=== PATIENT | female | born 1945 | race Caucasian/White ===

== ENCOUNTER 2017-08-17 08:36 | Outpatient (CLI) | payer MEDICARE, OTHER ==
--- NOTE | 2017-08-18 16:53 | Mammography Report ---
EXAM: Diagnostic digital bilateral mammogram. CLINICAL INDICATION: Localized pain inferior left breast, history of benign left breast biopsy. TECHNIQUE: Bilateral CC and MLO views, left true lateral views. Markers were placed at the site of maximal tenderness identified by the patient in the 6 o' clock position of the left breast. COMPARISON: 05/13/2014, 02/03/2013, 01/22/2012, 12/25/2010, 11/15/2009. FINDINGS: The breasts again demonstrate scattered fibroglandular densities bilaterally. Coarse and punctate, typically benign calcifications are present. Post-biopsy changes in the left breast are stable. No suspicious masses. Clustered microcalcifications, or regions of architectural distortion are identified. Specifically, no mammographic abnormality is appreciated in the 6 o' clock position of the left breast, at the site of tenderness identified by the patient. IMPRESSION: Benign findings. RECOMMENDATIONS: Routine annual screening unless otherwise clinically indicated. BIRADS category 2, benign findings. STANDARD QUALIFYING STATEMENTS 1. This examination was reviewd with the aid of computer-Aided Detection (CAD). 2. A negative or benign imaging report should not delay biopsy if clinically suspicious findings are present. Consider surgical consultation if warranted. More than 5% of cancers are not identified by imaging. 3. Dense breasts may obscure an underlying neoplasm. TD: 08/17/2017 13:46 EMIGDIO
== END 2017-08-17 08:37 | disposition home or self-care (01) ==
LOC: DI 08:36
PROVIDERS: ATTEND Internal Medicine
DX: N64.4 Mastodynia (principal)
CPT/HCPCS: 77066

== ENCOUNTER 2018-03-31 08:26 | Outpatient (CLI) | payer MEDICARE, OTHER | END 2018-03-31 08:27 | disposition home or self-care (01) | LOC: RT 08:26 | PROVIDERS: ATTEND Family Medicine | DX: I48.91 Unspecified atrial fibrillation (principal) | CPT/HCPCS: 93005 ==

== ENCOUNTER 2018-06-10 13:12 | Outpatient (CLI) | payer MEDICARE, OTHER | END 2018-06-10 13:13 | disposition critical access hospital (66) | LOC: EMS 13:12 | PROVIDERS: ATTEND Surgery | DX: R11.2 Nausea with vomiting, unspecified (principal); R46.4 Slowness and poor responsiveness; R73.09 Other abnormal glucose | CPT/HCPCS: A0425; A0427 ==

== ENCOUNTER 2018-06-10 13:22 | Emergency (ER) | payer MEDICARE, OTHER ==
[2018-06-10] MEDS ORDERED: SODIUM CHLORIDE 0.9% 1,000 ML IV ONE ×2 (13:55)
[2018-06-10] MEDS ORDERED: ONDANSETRON 4 MG/2 ML VIAL IVP STA (13:56)
[2018-06-10 13:57] LABS: BASOPHILS % (AUTO) 0.5 %; EOSINOPHILS # (AUTO) 0.1 10^3/uL (0.0-0.7); EOSINOPHILS % (AUTO) 2.2 %; HGB - HEMOGLOBIN 13.8 g/dL (12.0-16.0); LYMPHOCYTES # (AUTO) 1.7 10^3/uL (1.5-3.5); LYMPHOCYTES % (AUTO) 26.5 %; MEAN CORPUSCULAR HEMOGLOBIN 30.7 pg (27.0-31.0); MEAN CORPUSCULAR HGB CONC 33.7 g/dL (32.0-36.0); MEAN CORPUSCULAR VOLUME 90.9 fL (81.0-99.0); MEAN PLATELET VOLUME 8.8 fL (7.9-10.8); MONOCYTES # (AUTO) 0.4 10^3/uL (0.0-1.0); MONOCYTES % (AUTO) 5.4 %; NEUTROPHILS # (AUTO) 4.3 10^3/uL (1.5-6.6); NEUTROPHILS % (AUTO) 65.4 %; PLT - PLATELET COUNT 187 10^3/uL (130-450); RED BLOOD COUNT 4.49 10^6/uL (4.20-5.40); RED CELL DISTRIBUTION WIDTH 13.7 % (12.0-15.0); WHITE BLOOD COUNT 6.6 x10^3/uL (4.8-10.8)
[2018-06-10 14:08] LABS: ALBUMIN 4.2 g/dL (3.2-5.5); ALBUMIN/GLOBULIN RATIO 1.3 (1.0-2.2); BILIRUBIN,TOTAL 1.6 mg/dL (0.2-1.0); CALCIUM 9.8 mg/dL (8.5-10.3); CREATININE 1.3 mg/dL (0.4-1.0); TOTAL PROTEIN 7.5 g/dL (6.7-8.2)
--- NOTE | 2018-06-10 14:14 | ED Physician Documentation ---
History of Present Illness - Stated complaint Stated Complaint: VOMITING - Chief complaint Chief Complaint: General - History obtained from History obtained from: Patient, EMS - History of Present Illness Timing: How many weeks ago (1) Pain level max: 3 Pain level now: 3 Improved by: Nothing Worsened by: Eating or drinking - Additonal information Additional information: Patient is a 72-year-old female with diabetes who states she has had vomiting for the past week. Unable to keep her medications down recently. States is starting to feel confused and weak. Denies any abdominal pain, but does state that her upper back hurts from vomiting. Has not taken anything for the vomiting. No fevers. No recent antibiotics or travel. No recent surgery. She states she is status post cholecystectomy several years ago. Review of Systems Ten Systems: 10 systems reviewed and negative Constitutional: denies: Fever, Chills Ears: denies: Ear pain Nose: denies: Rhinorrhea / runny nose, Congestion Throat: denies: Sore throat Cardiac: denies: Chest pain / pressure Respiratory: denies: Cough, Wheezing GI: reports: Nausea, Vomiting. denies: Diarrhea, Hematemesis, Bloody / black stool : denies: Dysuria Skin: denies: Rash Musculoskeletal: denies: Neck pain, Back pain Neurologic: denies: Headache PD PAST MEDICAL HISTORY - Past Medical History Cardiovascular: Hypertension, High cholesterol Respiratory: Asthma Endocrine/Autoimmune: Type 2 diabetes Psych: Depression - Past Surgical History Past Surgical History: Yes General: Cholecystectomy, Appendectomy Ortho: Knee replacement HEENT: Tonsil/Adenoidectomy - Present Medications Home Medications: Ambulatory Orders Medication Instructions Recorded Confirmed Acyclovir 400 mg PO PRN 07/22/14 12/09/14 Aspirin [Aspir 81] 81 mg PO DAILY 07/22/14 12/09/14 Duloxetine HCl [Cymbalta] 60 mg PO DAILY 07/22/14 12/09/14 Gabapentin 600 mg PO TID 07/22/14 12/09/14 Levalbuterol Tartrate [Xopenex Hfa] 07/22/14 12/09/14 Losartan Potassium 50 mg PO DAILY 07/22/14 12/09/14 Metformin HCl [Fortamet] 1,000 mg PO BID 07/22/14 12/09/14 Omeprazole 20 mg PO BID 07/22/14 12/09/14 Insulin NPH Human Isophane 60 units SQ DAILY 12/09/14 12/09/14 [Novolin N] Insulin Regular, Human [Novolin R] 20 units SQ TID 12/09/14 12/09/14 Oxycodone HCl/Acetaminophen 1 - 2 each PO Q6H PRN #15 tablet 12/09/14 [Percocet 5-325 mg Tablet] Allerest Qam 11/08/15 Amitriptyline [Elavil] 50 mg QPM 11/08/15 11/08/15 Hydroxyzine HCl 50 mg QPM 11/08/15 11/08/15 Magnesium Oxide [Mag Ox] 400 mg PO BID #10 tablet 11/08/15 Cefdinir 300 mg PO BID #10 capsule 06/10/18 Ondansetron Odt [Zofran] 4 mg TL Q6H PRN #10 tablet 06/10/18 - Allergies Allergies/Adverse Reactions: Allergies Allergy/AdvReac Type Severity Reaction Status Date / Time Penicillins Allergy Unknown Verified 06/10/18 13:29 - Social History Does the pt smoke?: No Smoking Status: Never smoker Does the pt drink ETOH?: Yes Does the pt have substance abuse?: No - Immunizations Immunizations are current?: Yes - POLST Patient has POLST: No PD ED PE NORMAL - Vitals Vital signs reviewed: Yes - General General: Alert and oriented X 3, No acute distress - HEENT HEENT: Moist mucous membranes - Neck Neck: Supple, no meningeal sign - Cardiac Cardiac: RRR, Strong equal pulses - Respiratory Respiratory: No respiratory distress, Clear bilaterally - Abdomen Abdomen: Soft, Non distended, Other (Mild tenderness to palpation epigastric and right upper quadrant without peritoneal signs) - Back Back: No CVA TTP, No spinal TTP - Derm Derm: Warm and dry, No rash - Extremities Extremities: No calf tenderness / cord - Neuro Neuro: Alert and oriented X 3 - Psych Psych: Normal mood, Normal affect Results - Vitals Vitals: Vital Signs - 24 hr 06/10/18 13:24 Temperature 36.5 C Heart Rate 76 Respiratory 16 Rate Blood Pressure 126/68 O2 Saturation 99 Oxygen O2 Source Room air - Labs Labs: Laboratory Tests 06/10/18 06/10/18 13:52 13:52 WBC 6.6 RBC 4.49 Hgb 13.8 Hct 40.8 MCV 90.9 MCH 30.7 MCHC 33.7 RDW 13.7 Plt Count 187 MPV 8.8 Neut # (Auto) 4.3 Lymph # (Auto) 1.7 [place] # (Auto) 0.4 Eos # (Auto) 0.1 Baso # (Auto) 0.0 Absolute Nucleated RBC 0.00 Nucleated RBC % 0.0 Sodium 136 Potassium 3.7 Chloride 98 L Carbon Dioxide 23 Anion Gap 15.0 H BUN 28 H Creatinine 1.3 H Estimated GFR (MDRD) 40 L Glucose 389 H Calcium 9.8 Total Bilirubin 1.6 H AST 36 ALT 30 Alkaline Phosphatase 58 Total Protein 7.5 Albumin 4.2 Globulin 3.3 Albumin/Globulin Ratio 1.3 Lipase 28 PD MEDICAL DECISION MAKING - ED course Complexity details: reviewed results, re-evaluated patient, considered differential, d/w patient ED course: Patient is a 72-year-old female who presents to the emergency department vomiting for the past week. Appears to have a UTI and given Rocephin for this. Will place on antibiotics for home. She was given Zofran and IV fluids. Also given insulin. Glucose decreased. She feels much better and is tolerating p.o. without difficulty. Abdomen is soft, nontender nondistended. No evidence of pyelonephritis. Patient counseled regarding signs and symptoms for which I believe and urgent re-evaluation would be necessary. Patient with good understanding of and agreement to plan and is comfortable going home at this time This document was made in part using voice recognition software. While efforts are made to proofread this document, sound alike and grammatical errors may occur. - Sepsis Event Vital Signs: Vital Signs - 24 hr 06/10/18 13:24 Temperature 36.5 C Heart Rate 76 Respiratory 16 Rate Blood Pressure 126/68 O2 Saturation 99 Oxygen O2 Source Room air Departure - Departure Disposition: 01 Home, Self Care Clinical Impression: Hyperglycemia Vomiting Qualifiers: Vomiting type: unspecified Vomiting Intractability: non-intractable Nausea presence: with nausea Qualified Code(s): R11.2 - Nausea with vomiting, unspec ified UTI (urinary tract infection) Qualifiers: Urinary tract infection type: acute cystitis Hematuria presence: without he maturia Qualified Code(s): N30.00 - Acute cystitis without hematuria Condition: Good Instructions: ED UTI Cystitis Female, ED Nausea Vomiting Follow-Up: Jose Larson MD [Primary Care Provider] - Within 3 Days Prescriptions: Cefdinir 300 mg PO BID #10 capsule Ondansetron Odt [Zofran] 4 mg TL Q6H PRN #10 tablet PRN Reason: Nausea / Vomiting Comments: Return if you worsen. You can use Zofran as needed for nausea and vomiting. Drink plenty of fluids. Take all antibiotics until gone. Discharge Date/Time: 06/10/18 16:47
[2018-06-10 14:28] LABS: BILIRUBIN,URINE NEGATIVE (NEGATIVE); GLUCOSE, URINE (UA) 500 mg/dL (NEGATIVE); KETONES,URINE (UA) >=80 mg/dL (NEGATIVE); LEUKOCYTE ESTERASE, URINE NEGATIVE (NEGATIVE); NITRITE,URINE NEGATIVE (NEGATIVE); OCCULT BLOOD,URINE SMALL (NEGATIVE); PROTEIN,URINE >=300 mg/dL (NEGATIVE); UROBILINOGEN,URINE 0.2 (NORMAL) E.U./dL (NORMAL)
[2018-06-10 14:33] LABS: CLARITY,URINE CLEAR (CLEAR)
[2018-06-10] MEDS ORDERED: INSULIN REGULAR HUMAN 100 UNIT/1 ML 10 ML MDV SUBQ STA (14:45)
[2018-06-10 14:52] LABS: BACTERIA,URINE Rare /HPF (None Seen); RBC,URINE 0-5 /HPF (0-5); SQUAMOUS EPITHELIAL CELL,UR FEW Squamous (<= Few)
[2018-06-10 14:53] LABS: AMORPHOUS SEDIMENT,UR Rare /LPF; CASTS, URINE 0-2 Hyaline Casts /LPF
[2018-06-10 14:55] LABS: VBG BASE EXCESS 0.7 mmol/L (-2 - +2); VBG PCO2 44.6 mmHg (41-51); VBG PO2 34.3 mmHg (25-47); VBG TOTAL CO2 27.5 mmol/L (24-29)
[2018-06-10 15:11] LABS: VBG PH 7.385 (7.31-7.41)
[2018-06-10] MEDS ORDERED: cefTRIAXone 1 GM VIAL IVP STA (16:04)
[2018-06-10 16:41] VITALS: BP 115/68
== END 2018-06-10 16:47 | disposition home or self-care (01) ==
LOC: EDUNIT# → ED 13:22
DX: E11.65 Type 2 diabetes mellitus with hyperglycemia (principal); R11.2 Nausea with vomiting, unspecified; N30.00 Acute cystitis without hematuria; I10 Essential (primary) hypertension; E78.00 Pure hypercholesterolemia, unspecified; Z96.659 Presence of unspecified artificial knee joint; Z79.4 Long term (current) use of insulin; Z79.82 Long term (current) use of aspirin
CPT/HCPCS: 36415; 80053; 81001; 82009; 82803; 83690; 85025; 96361; 96374; 96375; 99284; J1815; 81003; 87086

== ENCOUNTER 2018-07-05 12:34 | Outpatient (CLI) | payer MEDICARE, OTHER ==
[2018-07-05] MEDS ORDERED: REGADENOSON 0.4 MG/5 ML SYRINGE IVP ONE ×2 (13:00→15:37)
--- NOTE | 2018-07-05 18:02 | CARDIAC PROCEDURE NOTE ---
DATE OF SERVICE: 07/05/2018 Physician: Marie Rivas MD, [facility]GED WITH [facility] INDICATION: Exertional dyspnea. CARDIAC RISK FACTORS: Insulin-dependent diabetes, postmenopausal status, hypertension, unknown family history of heart disease. SUMMARY: After signing informed consent, the patient underwent a pharmaceutical stress test using Lexiscan and myocardial perfusion imaging with nuclear agent. Resting heart rate 69. Peak heart rate 75. Resting blood pressure 120/68, peak blood pressure 150/80. Lexiscan was infused according to protocol. The patient experienced nausea and flushing, brief chest pressure that she rated 2-3/10, which resolved in 2 minutes. The patient had no shortness of breath. RESTING EKG: Normal sinus rhythm and within normal limits. EKG AT PEAK: Within normal limits. No ischemic EKG changes. SUMMARY: 1. No ischemic EKG changes during this pharmaceutical stress test. 2. Nuclear images reported separately. cc: Jose Larson MD TD: 07/05/2018 16:48 [facility]
--- NOTE | 2018-07-06 10:09 | Nuclear Medicine Report ---
Reason: EXERTIONAL DYSPNEA Procedure Date: 07/05/2018 Accession Number: [id number] / [id number] Procedure: NM - Myocardial Perfusion STR/RST CPT Code: FULL RESULT: EXAM: SINGLE-ISOTOPE PHARMACOLOGICAL STRESS TEST WITH REGADENOSON. SINGLE-ISOTOPE AND ONE-DAY REST/STRESS MYOCARDIAL PERFUSION SCANS WITH TOMOGRAPHIC IMAGING, QUANTITATIVE ANALYSIS, WALL MOTION ANALYSIS AND CALCULATION OF EJECTION FRACTION. EXAM DATE: 07/05/2018 04:41 PM. CLINICAL HISTORY: EXERTIONAL DYSPNEA. COMPARISON: None available. TECHNIQUE: After the intravenous administration of 9.9 mCi of Tc-99m sestamibi, a rest myocardial perfusion scan was done with tomography. Motion correction was applied when appropriate. After an appropriate delay, pharmacological stress was performed with the infusion of 0.4 mg regadenoson per protocol. According to protocol, 42.9 mCi of Tc-99m sestamibi was injected for stress myocardial perfusion scan. Motion correction was applied when appropriate. Gated tomographic images were obtained for wall motion analysis and computation of left ventricular ejection fraction. FINDINGS: There is what appears to be breast attenuation artifact in the distal anteroseptal wall. No convincing fixed or reversible perfusion defects. Wall motion analysis demonstrates no focal wall motion abnormality. The left ventricular end-diastolic volume is 51 cc. The left ventricular end-systolic volume is 10 cc. The left ventricular ejection fraction is calculated to be 80%. IMPRESSION: 1. No scintigraphic findings to indicate myocardial ischemia. Negative for infarct. 2. Left ventricular ejection fraction of 3. Normal segmental and global wall motion. 4. Normal left ventricular cavity size, no change with stress. [facility] ADDENDUM: 07/06/18 10:50 Computer analysis: Summed stress score 0 Summed rest score 0 Summed difference score 0 Based on computer analysis, normal study with no ischemia.
== END 2018-07-05 12:35 | disposition home or self-care (01) ==
LOC: DI 12:34
PROVIDERS: ATTEND Internal Medicine
DX: R06.00 Dyspnea, unspecified (principal); E11.9 Type 2 diabetes mellitus without complications; I10 Essential (primary) hypertension; Z78.0 Asymptomatic menopausal state; Z79.4 Long term (current) use of insulin
CPT/HCPCS: 78452; 93017; A9500; J2785

== ENCOUNTER 2018-07-30 18:18 | Outpatient (CLI) | payer MEDICARE, OTHER | END 2018-07-30 18:19 | disposition critical access hospital (66) | LOC: EMS 18:18 | PROVIDERS: ATTEND Surgery | DX: R41.0 Disorientation, unspecified (principal); R11.2 Nausea with vomiting, unspecified; R19.7 Diarrhea, unspecified | CPT/HCPCS: A0425; A0429 ==

== ENCOUNTER 2018-07-30 18:28 | Inpatient (IN) | payer MEDICARE, OTHER ==
--- NOTE | 2018-07-30 18:41 | ED Physician Documentation ---
PD HPI FOCAL NEURO - Stated complaint Stated Complaint: ALOC - Chief complaint Chief Complaint: Neuro - History obtained from History obtained from: Patient, Family, EMS - History of Present Illness Timing - onset: Today (This is a 73-year-old woman with history of some sort of mass induced seizure. She had a prolonged hospitalization in [place] last year. She also had a lung mass at the time which per the sister has since resolved. She lives in her own apartment which is connected/downstairs from the sister. At baseline she has no neurologic abnormalities. She was last seen normal yesterday. Today they found her with word salad and confusion. The patient is unable to give any significant history due to the word salad. She denies headache though.) Review of Systems Unable to obtain: Confused PD PAST MEDICAL HISTORY - Past Medical History Cardiovascular: Hypertension, High cholesterol Respiratory: Asthma Endocrine/Autoimmune: Type 2 diabetes Psych: Depression - Past Surgical History Past Surgical History: Yes General: Cholecystectomy, Appendectomy Ortho: Knee replacement HEENT: Tonsil/Adenoidectomy - Present Medications Home Medications: Ambulatory Orders Medication Instructions Recorded Confirmed Acyclovir 400 mg PO PRN 07/22/14 12/09/14 Aspirin [Aspir 81] 81 mg PO DAILY 07/22/14 12/09/14 Duloxetine HCl [Cymbalta] 60 mg PO DAILY 07/22/14 12/09/14 Gabapentin 600 mg PO TID 07/22/14 12/09/14 Levalbuterol Tartrate [Xopenex Hfa] 07/22/14 12/09/14 Losartan Potassium 50 mg PO DAILY 07/22/14 12/09/14 Metformin HCl [Fortamet] 1,000 mg PO BID 07/22/14 12/09/14 Omeprazole 20 mg PO BID 07/22/14 12/09/14 Insulin NPH Human Isophane 60 units SQ DAILY 12/09/14 12/09/14 [Novolin N] Insulin Regular, Human [Novolin R] 20 units SQ TID 12/09/14 12/09/14 Oxycodone HCl/Acetaminophen 1 - 2 each PO Q6H PRN #15 tablet 12/09/14 [Percocet 5-325 mg Tablet] Allerest Qam 11/08/15 Amitriptyline [Elavil] 50 mg QPM 11/08/15 11/08/15 Hydroxyzine HCl 50 mg QPM 11/08/15 11/08/15 Magnesium Oxide [Mag Ox] 400 mg PO BID #10 tablet 11/08/15 Cefdinir 300 mg PO BID #10 capsule 06/10/18 Ondansetron Odt [Zofran] 4 mg TL Q6H PRN #10 tablet 06/10/18 - Allergies Allergies/Adverse Reactions: Allergies Allergy/AdvReac Type Severity Reaction Status Date / Time Penicillins Allergy Unknown Verified 06/10/18 13:29 - Social History Does the pt smoke?: No Smoking Status: Never smoker Does the pt drink ETOH?: Yes Does the pt have substance abuse?: No - Immunizations Immunizations are current?: Yes - POLST Patient has POLST: No PD ED PE NORMAL - Vitals Vital signs reviewed: Yes - General General: Other (He is alert and cooperative but unable to give any history due to word salad) - HEENT HEENT: PERRL, EOMI (Grossly intact but difficulty following eyes due to poor command following.) - Neck Neck: Supple, no meningeal sign, No bony TTP - Cardiac Cardiac: RRR, No murmur - Respiratory Respiratory: No respiratory distress, Clear bilaterally - Abdomen Abdomen: Non tender - Derm Derm: Normal color, Warm and dry - Extremities Extremities: No edema, No calf tenderness / cord NIHSS - Time Time: 18:33 - Level of Consciousness Level of consciousness: (0) Alert, Keenly responsive LOC Questions: (2) Answers neither correct LOC Commands: (0) Performs both correctly - Gaze Best Gaze: (0) Normal - Visual Visual: (0) No loss - Facial Palsy Facial Palsy: (0) Normal, symmetrical movement - Motor Arms (both separate) Motor Arm (right): (0) No drift Motor Arm (left): (0) No drift - Motor Legs (both separate) Motor Leg (right): (0) No drift Motor Leg (left): (0) No drift - Limb Ataxia Limb Ataxia: (0) Absent - Sensory Sensory: (0) Normal - Best Language Best Language: (2) Severe aphasia - Dysarthria Dysarthria: (0) Normal - Extinction and Inattention (formally neg Extinction and inattention: (0) No abnormality - Total Score/Results Total Score/Result: 4 Results - Vitals Vitals: Vital Signs - 24 hr 07/30/18 07/30/18 18:29 19:45 Temperature 36.1 C L Heart Rate 87 84 Respiratory 18 16 Rate Blood Pressure 186/104 H 179/86 H O2 Saturation 98 97 Oxygen O2 Source Room air - EKG (time done) 1833 Rate: Rate (enter#) (90) Rhythm: NSR Avenue: Normal Intervals: Normal [place] QRS: Normal Ischemia: Normal ST segments Computer interpretation: Agree with computer - Labs Labs: Laboratory Tests 07/30/18 07/30/18 07/30/18 19:12 19:12 19:12 WBC 8.6 RBC 4.75 Hgb 14.1 Hct 43.3 MCV 91.2 MCH 29.6 MCHC 32.4 RDW 14.1 Plt Count 210 MPV 8.8 Neut # (Auto) Not Reportable Lymph # (Auto) Not Reportable [place] # (Auto) Not Reportable Eos # (Auto) Not Reportable Baso # (Auto) Not Reportable Absolute Nucleated RBC Not Reportable Total Counted 100 Band Neuts % (Manual) 0 Abnorm Lymph % (Manual) 0 Nucleated RBC % Not Reportable Neutrophils # (Manual) 6.1 Lymphocytes # (Manual) 2.1 Monocytes # (Manual) 0.3 Eosinophils # (Manual) 0.1 Basophils # (Manual) 0.0 Differential Comment MANUAL DIFFERENTIAL Manual Slide Review Indicated WBC Morphology NORMAL APPEARANCE Platelet Estimate NORMAL (130-450,000) Platelet Morphology NORMAL APPEARANCE RBC Morph Micro Appear NORMAL APPEARANCE PT 14.3 H INR 1.3 H Sodium 129 L Potassium 3.9 Chloride 91 L Carbon Dioxide 25 Anion Gap 13.0 BUN 22 H Creatinine 1.1 H Estimated GFR (MDRD) 49 L Glucose 354 H Calcium 10.8 H Magnesium 0.9 L* Total Bilirubin 1.1 H AST 21 ALT 17 Alkaline Phosphatase 49 Total Creatine Kinase 46 CK-MB (CK-2) Troponin I Total Protein 7.9 Albumin 4.3 Globulin 3.6 Albumin/Globulin Ratio 1.2 Lipase 100 H Ethyl Alcohol < 5.0 07/30/18 19:12 WBC RBC Hgb Hct MCV MCH MCHC RDW Plt Count MPV Neut # (Auto) Lymph # (Auto) [place] # (Auto) Eos # (Auto) Baso # (Auto) Absolute Nucleated RBC Total Counted Band Neuts % (Manual) Abnorm Lymph % (Manual) Nucleated RBC % Neutrophils # (Manual) Lymphocytes # (Manual) Monocytes # (Manual) Eosinophils # (Manual) Basophils # (Manual) Differential Comment Manual Slide Review WBC Morphology Platelet Estimate Platelet Morphology RBC Morph Micro Appear PT INR Sodium Potassium Chloride Carbon Dioxide Anion Gap BUN Creatinine Estimated GFR (MDRD) Glucose Calcium Magnesium Total Bilirubin AST ALT Alkaline Phosphatase Total Creatine Kinase CK-MB (CK-2) 1.6 Troponin I < 0.04 Total Protein Albumin Globulin Albumin/Globulin Ratio Lipase Ethyl Alcohol - Rads (name of study) CT Head Radiology: EMP read contemporaneously (NAD) CTA Head and neck Radiology: EMP read contemporaneously (NAD) PD MEDICAL DECISION MAKING - ED course ED course: 73-year-old woman with a strokelike symptoms with prominent a aphasia. Last known normal was yesterday. So it is not really even a wakeup stroke at this point. Her head CT was unremarkable. The nurse felt like she was improving, but on my reexamination at 7:10 PM she really had no change. I discussed the case by phone with Dr. Luma Mena, stroke neurologist at [facility] who recommended against TPA but suggested with that we do a CT angiogram of the head and neck to evaluate for large vessel occlusion, if she has one I will call her back, otherwise the plan is to admit her here for conservative care and MRI. The CTAs showed no large vessel occlusion or significant vascular disease. Call to the hospitalist, Dr. Vicente for admission at 9:16 PM. Departure - Departure Disposition: 66 [facility] DC/Xfer Clinical Impression: Cerebrovascular accident (CVA) Qualifiers: CVA mechanism: unspecified Qualified Code(s): I63.9 - Cerebral infarction, unspecified Condition: Serious
--- NOTE | 2018-07-30 18:58 | CT Report ---
Reason: CVA sx Procedure Date: 07/30/2018 Accession Number: [id number] / [id number] Procedure: CT - Head W/O Stroke Protocol CPT Code: FULL RESULT: EXAM: CT HEAD EXAM DATE: 07/30/2018 06:49 PM. CLINICAL HISTORY: Word salad. CVA symptoms. COMPARISON: None. TECHNIQUE: Multiaxial CT images were obtained from the foramen magnum to the vertex. Reformats: Sagittal and coronal. IV contrast: None. In accordance with CT protocol optimization, one or more of the following dose reduction techniques were utilized for this exam: automated exposure control, adjustment of mA and/or KV based on patient size, or use of iterative reconstructive technique. FINDINGS: Parenchyma: No intraparenchymal hemorrhage. No evidence of mass, midline shift, or CT findings of acute infarction. Escobar-white differentiation is distinct. Extraaxial Spaces: Normal for age. No subdural or epidural collections identified. Ventricles: Normal in size and position. Sinuses and Orbits: Imaged paranasal sinuses, orbits, and mastoids show no significant abnormality. Bones: No evidence of fracture or calvarial defect. Other: None. IMPRESSION: 1. No acute intracranial abnormality is identified. Critical result: Findings discussed with Dr. Gaston at 1856 hrs. On 07/30/2018 [facility]
[2018-07-30 19:21] LABS: BASOPHILS % (AUTO) 1.3 %; EOSINOPHILS % (AUTO) 1.5 %; HGB - HEMOGLOBIN 14.1 g/dL (12.0-16.0); LYMPHOCYTES % (AUTO) 23.8 %; MEAN CORPUSCULAR HEMOGLOBIN 29.6 pg (27.0-31.0); MEAN CORPUSCULAR HGB CONC 32.4 g/dL (32.0-36.0); MEAN CORPUSCULAR VOLUME 91.2 fL (81.0-99.0); MEAN PLATELET VOLUME 8.8 fL (7.9-10.8); MONOCYTES % (AUTO) 7.4 %; PLT - PLATELET COUNT 210 10^3/uL (130-450); RED BLOOD COUNT 4.75 10^6/uL (4.20-5.40); RED CELL DISTRIBUTION WIDTH 14.1 % (12.0-15.0); WHITE BLOOD COUNT 8.6 x10^3/uL (4.8-10.8)
[2018-07-30 19:24] LABS: ABNORMAL LYMPHS % (MANUAL) 0 %; BAND NEUTROPHILS % (MANUAL) 0 %
[2018-07-30 19:27] LABS: INR 1.3 (0.8-1.2); PT - PROTHROMBIN TIME 14.3 secs (9.9-12.6)
[2018-07-30 19:36] LABS: EOSINOPHILS # (MANUAL) 0.1 10^3/uL (0-0.7); LYMPHOCYTES # (MANUAL) 2.1 10^3/uL (1.5-3.5); LYMPHOCYTES % (MANUAL) 24 %; MONOCYTES # (MANUAL) 0.3 10^3/uL (0.0-1.0); NEUTROPHILS # (MANUAL) 6.1 10^3/uL (1.5-6.6); NEUTROPHILS % (MANUAL) 71 %
[2018-07-30 19:37] LABS: DIFFERENTIAL COMMENT MANUAL DIFFERENTIAL; PLATELET ESTIMATE, MANUAL NORMAL (130-450,000) (NORMAL); PLATELET MORPHOLOGY NORMAL APPEARANCE (NORMAL); RBC MORPHOLOGY (MULTIPLE) NORMAL APPEARANCE (NORMAL)
[2018-07-30 19:42] LABS: TROPONIN I < 0.04 ng/mL (<0.49)
[2018-07-30 19:44] LABS: CREATINE KINASE MB 1.6 ng/mL (0.6-6.3)
[2018-07-30] MEDS ORDERED: IOVERSOL 320 100 ML VIAL IVP ONE ×2 (19:53→20:44)
[2018-07-30 19:54] LABS: ALBUMIN 4.3 g/dL (3.2-5.5); ALBUMIN/GLOBULIN RATIO 1.2 (1.0-2.2); ALKALINE PHOSPHATASE 49 IU/L (42-121); ALT ALANINE AMINOTRANSFERASE 17 IU/L (10-60); AST ASPARTATE AMINOTRANSFERASE 21 IU/L (10-42); BILIRUBIN,TOTAL 1.1 mg/dL (0.2-1.0); BUN - BLOOD UREA NITROGEN 22 mg/dL (6-20); CALCIUM 10.8 mg/dL (8.5-10.3); CARBON DIOXIDE - CO2 25 mmol/L (21-32); CHLORIDE 91 mmol/L (101-111); CK- CREATINE KINASE 46 IU/L (22-269); CREATININE 1.1 mg/dL (0.4-1.0); GFR - MDRD 49 (>89); GLUCOSE 354 mg/dL (70-100); LIPASE 100 U/L (22-51); SODIUM 129 mmol/L (135-145); TOTAL PROTEIN 7.9 g/dL (6.7-8.2)
[2018-07-30 19:55] LABS: MAGNESIUM 0.9 mg/dL (1.7-2.8)
[2018-07-30] MEDS ORDERED: MAGNESIUM SULFATE 2 GRAM 2 GM/50 ML BAG IV ONE (20:02)
[2018-07-30] MEDS ORDERED: SODIUM CHLORIDE 0.9% 1,000 ML IV ONE (20:02)
[2018-07-30] MEDS ORDERED: INSULIN REGULAR HUMAN 100 UNIT/1 ML 10 ML MDV IVP STA (20:02)
--- NOTE | 2018-07-30 20:54 | CT Report ---
Reason: Aphasia Procedure Date: 07/30/2018 Accession Number: [id number] / [id number] Procedure: CT - Neck Angio CPT Code: FULL RESULT: EXAM: CT ANGIOGRAM HEAD AND NECK. CT SCAN HEAD WITH CONTRAST. EXAM DATE:07/30/2018 08:41 PM. CLINICAL HISTORY:Aphasia. COMPARISON:Noncontrast CT head 07/30/2018. TECHNIQUE: Routine axial helical CTA imaging was performed from the aortic arch through the [place]. Routine axial CT imaging of the head was performed following contrast administration. Reconstructions: Routine multiplanar 3D MIP reconstructions. IV contrast: 80 ML OPTIRAY 320. NASCET Criteria are used for stenosis measurements. In accordance with CT protocol optimization, one or more of the following dose reduction techniques were utilized for this exam: automated exposure control, adjustment of mA and/or KV based on patient size, or use of iterative reconstructive technique. FINDINGS: CT SCAN HEAD: Parenchyma: No intraparenchymal hemorrhage. No evidence of mass, midline shift, or CT findings of acute infarction. Escobar-white differentiation is distinct. No abnormal postcontrast enhancement. Extraaxial Spaces: Normal for age. No subdural or epidural collections identified. Ventricles: Normal in size and position. Sinuses and Orbits: Changes of bilateral lens replacement. Moderate left frontal sinus mucosal retention cyst versus polyp. Small bilateral mucosal retention cyst versus polyps. Bones: No evidence of fracture or calvarial defect. CT ANGIOGRAM HEAD AND NECK: The aortic arch appears normal. There is normal three-vessel takeoff of the great vessels. RIGHT: Common Carotid Artery: Patent without significant stenosis. Carotid Bulb: There is minimal atherosclerotic plaque at the bifurcation and siphon. Stenosis at the bifurcation by NASCET criteria: No significant stenosis. Internal Carotid Artery: Tortuosity of the cervical ICA with slight retroesophageal course. No evidence of dissection or high-grade stenosis. Minimal vascular calcifications of the cavernous ICA segments. No evidence of aneurysm along the intracranial ICA. External Carotid Artery: Unremarkable. Vertebral Artery: Patent without significant stenosis. No evidence of dissection. No aneurysm. Anterior Cerebral Artery: Patent without significant stenosis, aneurysm, or vascular malformation. Middle Cerebral Artery: Patent without significant stenosis, aneurysm, or vascular malformation. Posterior Cerebral Artery: Patent without significant stenosis, aneurysm, or vascular malformation. Posterior Communicating Artery: Not definitively seen. No aneurysm. LEFT: Common Carotid Artery: Patent without significant stenosis. Carotid Bulb: There is minimal atherosclerotic plaque at the bifurcation and siphon. Stenosis at the bifurcation by NASCET criteria: No significant stenosis. Internal Carotid Artery: Tortuosity of the cervical ICA with slight retroesophageal course. No evidence of dissection or high-grade stenosis. Minimal vascular calcifications of the cavernous ICA segments. No evidence of aneurysm along the intracranial ICA. External Carotid Artery: Unremarkable. Vertebral Artery: Patent without significant stenosis. No evidence of dissection. No aneurysm. Anterior Cerebral Artery: Patent without significant stenosis, aneurysm, or vascular malformation. Middle Cerebral Artery: Patent without significant stenosis, aneurysm, or vascular malformation. Posterior Cerebral Artery: Patent without significant stenosis, aneurysm, or vascular malformation. Posterior Communicating Artery: Patent. No aneurysm. CENTRAL: Anterior Communicating Artery: Patent. No aneurysm. Basilar Artery: Patent without significant stenosis. No aneurysm. DURAL VENOUS SINUSES AND MAJOR CENTRAL VEINS: Patent. OTHER: The visualized pharynx and larynx appear normal. Major salivary glands appear normal. Right thyroid lobe hypodensity seen largest measuring up to 5 mm (series 2, image 2 8). Left thyroid lobe by the density seen measuring up to 6 mm (series 2, image 208). No cervical lymphadenopathy or necrotic lymph nodes seen. Soft tissues of the neck appear normal. Visualized lung apices are clear. No acute fracture or traumatic subluxation of the cervical spine. Multilevel degenerative changes. No suspicious osseous lesion. IMPRESSION: CT SCAN HEAD: 1. No definite acute intracranial pathology seen; specifically, no acute infarct, acute intracranial hemorrhage, mass, hydrocephalus, or midline shift. No abnormal postcontrast enhancement. CT ANGIOGRAM NECK: 1. Normal CTA of the extracranial circulation. No significant atherosclerotic change or stenosis. No dissection. CT ANGIOGRAM HEAD: 1. Normal CTA of the head. No aneurysm. No significant stenosis. RADIA
[2018-07-30] MEDS ORDERED: ASPIRIN CHEW 81 MG TABLET PO STA (21:17)
[2018-07-30] MEDS ORDERED: ALBUTEROL NEB 2.5 MG/3 ML INH STA (21:21)
[2018-07-30] MEDS ORDERED: levETIRAcetam INJ 500 MG in SODIUM CHLORIDE 0.9% 100ML 100 ML IV STA (22:58)
[2018-07-30] MEDS ORDERED: ONDANSETRON 4 MG/2 ML VIAL IVP PRN (23:02)
[2018-07-30] MEDS ORDERED: SODIUM CHLORIDE FLUSH 0.9% 10 ML SYRINGE IVP PRN (23:02)
[2018-07-30] MEDS ORDERED: CLOPIDOGREL 300 MG TABLET PO STA (23:09)
[2018-07-30 23:57] LABS: THYROID STIMULATING HORMONE 2.04 uIU/mL (0.34-5.60)
[2018-07-30 23:58] LABS: CALCIUM 9.8 mg/dL (8.5-10.3)
[2018-07-31 00:03] LABS: PROLACTIN 4.53 ng/mL
[2018-07-31 00:05] LABS: HB2 TOTAL 15.2 g/dL; HEMOGLOBIN A1C 0.95 g/dL; HEMOGLOBIN A1C % 7.9 % (4.6-6.2)
[2018-07-31] MEDS ORDERED: SODIUM CHLORIDE 0.9% 100ML 100 ML IV ONE (01:11)
[2018-07-31] MEDS ORDERED: LABETALOL 20 MG/4 ML SYRINGE IVP ONE (01:39)
[2018-07-31] MEDS: INSULIN GLARGINE 300 UNIT/3 ML PEN SUBQ SCH ×3 (02:05→20:44)
[2018-07-31] MEDS: ATORVASTATIN 10 MG TABLET PO SCH ×2 (02:08→08:31)
--- NOTE | 2018-07-31 02:09 | HISTORY & PHYSICAL EXAMINATION ---
DATE OF SERVICE: 07/30/2018 Physician: Татьяна Vicente MD SOURCE OF HISTORY: Patient's sister and brother provided history. The patient had altered mental status. She could not fully participate. CHIEF COMPLAINT: Altered mental status. HISTORY OF PRESENT ILLNESS: Patient is a 73-year-old female who lives in the same house with her sister. They live in a duplex kind of situation. They both live independently; however, they visit each other often. The patient is fully functional, usually manages her diabetes well, checks her blood glucose at least 3 times a day, takes all of her medications regularly. The sister described that the patient was hospitalized in [place] about 4 years ago, at which time she was critically ill, and the family was told that there was high risk that the patient would not recover; however, she did make full recovery. Unfortunately, the diagnosis is not clear. The patient was worked up for seizure, she was also worked up for a possible lung mass. However, on subsequent imaging, no mass was found. This is how much the sister can tell me. She also reports that the patient has spells usually starting with hallucinations followed by flu-like illness and subsequently with a profoundly altered mental status. These spells happened at least 4 or 5 times during the past few years. The sister reports that this time patient's symptoms started about a week ago. At that time, exactly a week ago on Tuesday, patient saw a cow which was not present. This was obviously a visual hallucination. Subsequently, she developed flu-like symptoms, which lasted for a few days. Today, when the sister talked to the patient, she appeared different than usual. First, the sister noticed mental status change around noontime. However, at that time, the patient told her that she just woke up from sleep. Therefore, the sister was not much alerted. Subsequently, however, a few hours later when the sister again spoke with the patient, she noted that the patient was talking nonsense, could not meaningfully interact or react. Her answers were bizarre, and she had obviously altered mental status. No other focal neurologic symptom was reported. The sister at that time, around 6 p.m., called EMS, and the patient was brought to the ER. She was evaluated by the ER physician, Dr. Gaston. Her NIH stroke scale was 4, which was given for mainly the symptom of aphasia. She had word salad. She underwent CT scan of the brain which was negative. The symptoms were discussed with [place] telestroke business travel consultant, who recommended CT angiography of head and neck. It was completed, and no large-vessel occlusion or stenosis was shown. Therefore, no transfer of the patient was recommended. The neurologist recommended that we admit the patient here at [facility] and complete her workup with MRI. On further interview, the patient and the sister report that the diagnosis of seizure was entertained several years ago, but the patient was never evaluated by a neurologist, at least per their knowledge, and she was never on any antiepileptic medication. The flu-like symptoms that the sister reported included nausea, vomiting. No headache was reported. Upon presentation to the ER, the patient's workup included EKG, which showed sinus rhythm with a rate of 90, anterolateral inverted T waves, minimal ST depression. Troponin was negative. Laboratory showed numerous abnormalities, including sodium 129, chloride 91, BUN 22, creatinine 1.1, glucose 354. Calcium was 10.8, magnesium 0.9. Liver function tests were unremarkable. Coagulation studies were slightly abnormal, including INR of 1.2, PT 14.3. White blood cell count was normal, blood count unremarkable. REVIEW OF SYSTEMS: Please see pertinent positives listed above at history of present illness. In addition, patient denied all complaints including fever, cough, chest pain, shortness of breath. There was no history of any bleeding complication. No history of convulsions. No history of loss of consciousness. I completed a 12-point review, which was otherwise negative. PAST MEDICAL HISTORY 1. Osteoarthritis, history of knee replacement about 5 years ago. Right knee replacement was complicated and required repeat surgery. The patient reported having postsurgical bacteremia. 2. Dyslipidemia. 3. Insulin-dependent diabetes. 4. History of TIAs versus the spells which were described above at history of present illness. 5. Hypertension. 6. Complicated hospital stay about 4 years ago. Details are unavailable. 7. Chronic back pain/opiate dependence. 8. Depression. OUTPATIENT MEDICATIONS Included: 1. Insulin. 2. Percocet. 3. Multiple other medications are listed, but the medication reconciliation is not yet updated. FAMILY HISTORY: Positive for diabetes in the brother. SOCIAL HISTORY: The patient is a nonsmoker. She ambulates with a cane. CODE STATUS: FULL CODE. PHYSICAL EXAMINATION VITAL SIGNS: Temperature is 36.1, heart rate in the 80s, blood pressure 180/86, respiratory rate 16, oxygen saturation 98% on room air. GENERAL: The patient is a well-developed, elderly female who maintained good eye contact and followed simple commands. However, she could not answer questions appropriately and appeared to have expressive aphasia. NEUROLOGIC: Expressive aphasia. No other focal lateralizing sign. PSYCHIATRIC: Cooperative, appeared with normal mood, was alert, did not appear sedated. CARDIOVASCULAR: S1, S2, regular. No pathologic murmur. RESPIRATORY: Clear to auscultation without wheezes or crackles. ABDOMEN: Obese, benign. Bowel sounds present. LYMPHATIC: No lymphedema. MUSCULOSKELETAL: Signs of arthritis. No joint swelling, inflammatory sign, or muscle tenderness. SKIN: Without jaundice or pallor. ASSESSMENT AND PLAN/ACTIVE ISSUES/DIAGNOSES 1. Encephalopathy/expressive aphasia. No other focal neurologic abnormality but, due to the aphasia, still scores about 4 on the NIH stroke scale. a. The way the patient's sister describes the symptoms, would be more consistent with complex focal/partial seizures rather than cerebrovascular accident. b. Transient ischemic attack and cerebrovascular accident are still in the differential diagnosis. c. Notably, the patient's medication list, although not reconciled, shows multiple psychoactive medications, including antidepressants, tricyclics, and opiates. In particular, tricyclic overdose or supratherapeutic level could lead to altered mental status without sedation. d. In the setting of uncontrolled hypertension, posterior reversible hypertensive encephalopathy comes into mind as well, and the diagnostic test for that would be an MRI. 2. Hyponatremia. This could be pseudohyponatremia in the setting of hyperglycemia, or, considering that hypomagnesemia is present as well, salt-wasting nephropathy is possible as well, or dehydration and hypovolemic hyponatremia is in the differential diagnosis as well. 3. Volume status appears hypovolemic, with increased BUN. 4. Hypomagnesemia. The patient is on magnesium supplements, and it seems that she has history of hypomagnesemia. Possible etiologies include: a. Omeprazole. b. Familial hypomagnesemia. c. In the setting of uncontrolled diabetes. d. Together with hypercalcemia, genetic disorders come into mind. e. Patient is not on diuretic; at least, diuretic is not on the medication list that I can see. 5. Hypercalcemia, borderline. Will need to be repeated. 6. Mild coagulopathy without history of anticoagulant use or without history of liver disease. Again, this will need to be followed. 7. Insulin-dependent diabetes with hyperglycemia on admission. Metabolic abnormalities such as hyperglycemia and dehydration could also contribute to altered mental status, although alone I would not expect it to be the cause. 8. Uncontrolled hypertension in the setting of altered mental status, discomfort, possibly in the setting of stroke. PLAN AND ORDERS 1. Patient is getting admitted as inpatient. She has multiple abnormalities and meets inpatient criteria. 2. Magnesium replacement was started in the ER. Will continue as needed. Will repeat calcium to establish whether there is true hypercalcemia. We will check ionized calcium level. As there were many laboratory numbers which were slightly off, it is also possible that laboratory sample was somewhat suboptimal. 3. The patient appeared dehydrated, received hydration in the ER. 4. Regarding possible cerebrovascular accident versus posterior reversible encephalopathy, MRI is ordered for the morning. Unfortunately, overnight not available. Considering possible cerebrovascular accident, Plavix load was given, and full-dose aspirin and statin will be ordered. The patient will be monitored on telemetry. 5. Considering possibility of seizures, which per clinical history would be likely, in particular complex focal/partial seizures, we will load with 1 dose of Keppra. I will recommend neurology outpatient followup and outpatient EEG. Will monitor with seizure precautions. Will check lactic acid and prolactin level. 6. For further workup for cerebrovascular accident, echocardiogram could be considered, although at this point I do not think it would add much to the diagnosis. 7. Regarding uncontrolled diabetes, will check hemoglobin A1c, monitor the blood glucose on sliding scale, and will use slightly less long-acting insulin for safety than what the patient takes at home. For now, I will use insulin Lantus to simplify things, and I ordered 20 units b.i.d., which is less than what the patient was on at home. 8. Regarding uncontrolled hypertension, we will let the blood pressure auto- regulate until stroke is ruled out. Subsequently, I would attempt to control the blood pressure with preferably a calcium channel antagonist. 9. Regarding mild coagulopathy, that will also need to be followed. The patient might need workup for liver disease, although it is reassuring that her liver function tests are unremarkable. Coagulopathy is mild, and again, it could be a laboratory variance. 10. FULL CODE. 11. Will request social work consult for discharge planning. Physical therapy and occupational therapy evaluation. Time spent in the care of this patient was 70 minutes. ATTESTATION: I certify that the reasonable expectation for this patient is to remain hospitalized for at least 48 hours. She meets inpatient criteria with the diagnosis of encephalopathy. She also has critical electrolyte abnormality and might require repeat replacement and monitoring of her chemistry panel. I expect, however, that she will get discharged or transferred to another facility within 96 hours. TD: 07/31/2018 00:36 [email or web address]
[2018-07-31] MEDS: KETOROLAC 15 MG/ML VIAL IVP PRN ×4 (02:30→20:44)
[2018-07-31] MEDS: SODIUM CHLORIDE FLUSH 0.9% 10 ML SYRINGE IVP SCH ×4 (02:54→23:45)
[2018-07-31 04:13] LABS: LEUKOCYTE ESTERASE, URINE NEGATIVE (NEGATIVE); MUDS CUTOFF CONCENTRATIONS CUTOFF CONC BELOW:; NITRITE,URINE NEGATIVE (NEGATIVE); UROBILINOGEN,URINE 0.2 (NORMAL) E.U./dL (NORMAL)
[2018-07-31 04:14] LABS: GLUCOSE, URINE (UA) 250 mg/dL (NEGATIVE); KETONES,URINE (UA) 15 mg/dL (NEGATIVE); OCCULT BLOOD,URINE TRACE-INTA (NEGATIVE); PROTEIN,URINE 100 mg/dL (NEGATIVE)
[2018-07-31 04:22] LABS: BILIRUBIN,URINE NEGATIVE (NEGATIVE); CLARITY,URINE CLEAR (CLEAR); ICTOTEST,URINE NEGATIVE
[2018-07-31] MEDS ORDERED: MORPHINE 10 MG/ML VIAL IVP STA (04:22)
[2018-07-31 04:24] LABS: BACTERIA,URINE Rare /HPF (None Seen); MUCUS,URINE Moderate Strands; RBC,URINE 3 /HPF (0-5); SQUAMOUS EPITHELIAL CELL,UR MANY Squamous (<= Few)
[2018-07-31 04:25] LABS: AMPHETAMINE SCREEN,URINE NEGATIVE (NEGATIVE); BENZODIAZEPINES SCREEN, URINE NEGATIVE (NEGATIVE); CASTS, URINE 6-10 Hyaline Casts /LPF; COCAINE SCREEN URINE NEGATIVE (NEGATIVE); METHADONE SCREEN, URINE NEGATIVE (NEGATIVE); METHAMPHETAMINES SCREEN, URINE NEGATIVE (NEGATIVE); OPIATE SCREEN, URINE NEGATIVE (NEGATIVE); OXYCODONE SCREEN, URINE POSITIVE (NEGATIVE); PROPOXYPHENE SCREEN, URINE NEGATIVE (NEGATIVE); TRICYCLIC ANTIDEPRESSANT,URINE POSITIVE (NEGATIVE)
[2018-07-31 05:30] LABS: BASOPHILS % (AUTO) 0.6 %; EOSINOPHILS # (AUTO) 0.1 10^3/uL (0.0-0.7); EOSINOPHILS % (AUTO) 1.7 %; HGB - HEMOGLOBIN 12.8 g/dL (12.0-16.0); LYMPHOCYTES % (AUTO) 25.5 %; MEAN CORPUSCULAR HEMOGLOBIN 29.7 pg (27.0-31.0); MEAN CORPUSCULAR HGB CONC 32.6 g/dL (32.0-36.0); MEAN PLATELET VOLUME 8.6 fL (7.9-10.8); MONOCYTES # (AUTO) 0.6 10^3/uL (0.0-1.0); MONOCYTES % (AUTO) 7.7 %; NEUTROPHILS # (AUTO) 5.2 10^3/uL (1.5-6.6); NEUTROPHILS % (AUTO) 64.5 %; PLT - PLATELET COUNT 189 10^3/uL (130-450); RED BLOOD COUNT 4.31 10^6/uL (4.20-5.40); RED CELL DISTRIBUTION WIDTH 14.3 % (12.0-15.0)
[2018-07-31 05:38] LABS: CALCIUM 9.7 mg/dL (8.5-10.3); CREATININE 1.1 mg/dL (0.4-1.0); MAGNESIUM 1.3 mg/dL (1.7-2.8); PHOSPHORUS 1.6 mg/dL (2.5-4.6)
[2018-07-31 05:46] LABS: CHOL/HDL RATIO 7.8 (<4.4); CHOLESTEROL 233 mg/dL; HDL CHOLESTEROL 30 mg/dL
[2018-07-31 06:08] LABS: LDL CHOLESTEROL,DIRECT 63 mg/dL; LDLD/HDL RATIO 2.1 (<4.4)
[2018-07-31] MEDS: PANTOPRAZOLE 40 MG TABLET PO SCH (06:18)
[2018-07-31] MEDS: POLYETHYLENE GLYCOL 3350 17 GM PACKET PO SCH (08:30)
[2018-07-31] MEDS: ASPIRIN 325 MG TABLET PO SCH (08:31)
[2018-07-31] MEDS: INSULIN ASPART 300 UNIT/3 ML PEN SUBQ SCH ×4 (08:34→20:44)
[2018-07-31] MEDS: HEPARIN 5,000 UNIT/ML VIAL SUBQ SCH ×2 (08:35→20:52)
[2018-07-31] MEDS ORDERED: SODIUM CHLORIDE 0.9% 1,000 ML IV SCH (12:00)
[2018-07-31] MEDS ORDERED: LEVALBUTEROL 1.25 MG/3 ML NEB INH PRN (12:32)
[2018-07-31] MEDS ORDERED: MAGNESIUM SULFATE 2 GRAM 2 GM/50 ML BAG IV ONE (14:03)
[2018-07-31 14:29] LABS: CALCIUM 9.6 mg/dL (8.5-10.3); CREATININE 1.2 mg/dL (0.4-1.0)
[2018-07-31 14:41] LABS: HB2 TOTAL 13.1 g/dL; HEMOGLOBIN A1C 0.79 g/dL; HEMOGLOBIN A1C % 7.7 % (4.6-6.2)
--- NOTE | 2018-07-31 15:51 | MRI Report ---
Reason: r/o CVA Procedure Date: 07/31/2018 Accession Number: [id number] / [id number] Procedure: MRI - Brain W/O CPT Code: FULL RESULT: MRI BRAIN WITHOUT CONTRAST INDICATION: 73-year-old female. Possible CVA. Little speech loss. TECHNIQUE: 1. T1-weighted sagittal. 2. Fat saturated T2 coronal. 3. Axial T1, FLAIR, T2* and DWI. COMPARISON: Head CT 07/30/2018 FINDINGS: There is mild generalized prominence of the cerebral cortical sulci and third and lateral ventricles, considered well within normal limits for stated age. A mild to moderate amount of white matter disease is identified in the supratentorial brain, manifested as focal and confluent T2 hyperintensities that are scattered throughout the periventricular, deep and subcortical white matter bilaterally. A frontoparietal distribution predominates. There appear to be flow voids for the main intracranial arteries. No abnormal diffusion restriction is demonstrated. No evidence of acute or chronic hemorrhage on T2* GRE sequence. No abnormal extra-axial fluid collection. No mass effect or midline shift. Limited evaluation of the orbits reveals no gross pathology. Changes of previous cataract surgery are noted bilaterally. A mucous retention cyst is identified in the inferior, left frontal sinus. The paranasal sinuses are otherwise essentially clear. No significant mastoid or middle ear effusion is demonstrated. IMPRESSION: 1. Age appropriate senescent changes are demonstrated within the brain. 2. A mild to moderate amount of white matter disease is identified in the supratentorial brain. The findings are relatively nonspecific, however, this most likely represents chronic microangiopathy. 3. No other significant intracranial findings on this unenhanced brain MRI. In particular, no evidence of acute infarction on diffusion-weighted imaging.
[2018-07-31] MEDS ORDERED: INSULIN ASPART 300 UNIT/3 ML PEN SUBQ SCH (17:00)
--- NOTE | 2018-07-31 17:49 | PROVIDER PROGRESS NOTE ---
Assessment/Plan - Problem List (1) Seizure Assessment/Plan: The recurrent episodes of confusion, that prompted this admission, were probably tghe post-ictal state. The [id number] confirms that. Will transfer the patient to the ICU, neuro checks and call neurologist for recommendations on anti-convulsant management. The family was made aware. (2) Diabetes mellitus, insulin dependent (IDDM), uncontrolled Qualifiers: Glycemic state: with hyperglycemia Qualified Code(s): E10.65 - Type 1 diabetes mellitus with hyperglycemia Assessment/Plan: Continue carb-controlled diet, fingerstick checks and Insulin coverage. No Metformin use, in case she needs any imaging using dye. Resume her FAHAD-I and ASA. (3) Hypertriglyceridemia Assessment/Plan: Her Trig level is extremely high. Will start Fenofibrate. Better glu control will also help the high level. (4) Depression Assessment/Plan: Will resume her Amitryptiline and Cymbalta. - Current Meds Current Meds: Current Medications Generic Name Dose Route Start Last Admin Trade Name Freq PRN Reason Stop Dose Admin Aspirin 325 mg 07/31/18 09:00 07/31/18 08:31 Fiona PO 325 mg DAILY MADDISON Administration Atorvastatin Calcium 10 mg 07/30/18 21:00 07/31/18 08:31 Lipitor PO 10 mg DAILY MADDISON Administration Heparin Sodium (Porcine) 5,000 unit 07/31/18 09:00 07/31/18 08:35 SUBQ 5,000 unit BID MADDISON Administration Sodium Chloride 1,000 mls @ 125 mls/hr 07/31/18 12:00 07/31/18 17:45 Normal Saline 0.9% IV 125 mls/hr .Q8H MADDISON Infusion Insulin Aspart 2 - 10 unit 07/31/18 17:00 07/31/18 17:00 Novolog SUBQ 8 unit 0800,1200,1700,2100 MADDISON Administration Protocol Insulin Glargine 25 unit 07/30/18 23:45 07/31/18 08:32 Lantus Solostar SUBQ 25 unit BID MADDISON Administration Ketorolac Tromethamine 15 mg 07/31/18 01:39 07/31/18 14:36 Toradol Inj (15mg) IVP 08/05/18 01:38 15 mg Q6HR PRN Administration PAIN Pantoprazole Sodium 40 mg 07/31/18 07:00 07/31/18 06:18 Protonix PO 40 mg QDAC MADDISON Administration Polyethylene Glycol 17 gm 07/31/18 09:00 07/31/18 08:30 Miralax PO 17 gm DAILY MADDISON Administration Sodium Chloride 10 ml 07/30/18 23:02 07/31/18 02:01 Normal Saline Flush 0.9% IVP 10 ml PRN PRN Administration NEEDED PER PROVIDER ORDERS Sodium Chloride 10 ml 07/31/18 01:00 07/31/18 17:02 Normal Saline Flush 0.9% IVP 10 ml 0100,0900,1700 MADDISON Administration - Lab Result Fish Bone Diagrams: 07/31/18 05:09 07/31/18 14:03 - Additional Planning My Orders: My Active Orders 07/31/18 16:37 Transfer [Admit \\ Transfer \\ Status] [RC] .ONCE 07/31/18 17:46 Carrera Continuation and Care [RC] QSHIFT Carrera Insertion [RC] QSHIFT Subjective - Subjective Patient Reports: Other (The [id number] and a man were in her room visiting amd she reports seeing the patient stare off and have mild hand trembling, it last about a minute, no patient response when visitor called out "Shraddha", when the RN arrived the seizure had already stopped.) Nursing Reports: Other (Pt was post-ictal (and I was called to see her).) Objective Vital Signs: Vital Signs - 24 hr 07/30/18 07/30/18 07/30/18 18:29 19:45 21:19 Temperature 36.1 C L Heart Rate 87 84 85 Heart Rate [ Brachial] Respiratory 18 16 17 Rate Blood Pressure 186/104 H 179/86 H 164/90 H Blood Pressure [Left Brachial artery] O2 Saturation 98 97 98 07/30/18 07/30/18 07/31/18 22:17 22:33 00:30 Temperature 36.7 C Heart Rate 80 84 Heart Rate [ 80 Brachial] Respiratory 14 18 18 Rate Blood Pressure 164/74 H Blood Pressure 170/64 H [Left Brachial artery] O2 Saturation 95 96 07/31/18 07/31/18 07/31/18 02:20 02:25 02:34 Temperature Heart Rate Heart Rate [ 81 72 Brachial] Respiratory Rate Blood Pressure Blood Pressure 170/65 H 169/74 H 178/80 H [Left Brachial artery] O2 Saturation 07/31/18 07/31/18 07/31/18 02:36 02:42 02:54 Temperature Heart Rate Heart Rate [ 66 71 Brachial] Respiratory Rate Blood Pressure Blood Pressure 170/74 H 167/70 H 158/88 H [Left Brachial artery] O2 Saturation 07/31/18 07/31/18 07/31/18 03:15 03:45 07:45 Temperature 36.6 C Heart Rate Heart Rate [ 72 79 Brachial] Respiratory 20 Rate Blood Pressure Blood Pressure 145/85 H 161/73 H 166/67 H [Left Brachial artery] O2 Saturation 97 07/31/18 16:00 Temperature 36.5 C Heart Rate Heart Rate [ 75 Brachial] Respiratory 19 Rate Blood Pressure Blood Pressure 154/59 H [Left Brachial artery] O2 Saturation 98 Oxygen O2 Source Nasal cannula I&O (Last 24 Hrs): Intake and Output Totals x24h 07/29/18 07/30/18 07/31/18 23:59 23:59 23:59 Intake Total 1050 962.5 Output Total 520 Balance 1050 442.5 General: Other (Awake, follows me with eyes, follows command, but only answers with a single word.) HEENT: Mucous membr. moist/pink Neck: Other (Obese) Neuro: Other (Lethargic, post-ictal) Cardiovascular: Regular rate, No murmurs Respiratory: No respiratory distress, Breath sounds nml Abdomen: Soft - Results Results: Laboratory Results WBC 8.0 x10^3/uL (4.8-10.8) 07/31/18 05:09 RBC 4.31 10^6/uL (4.20-5.40) 07/31/18 05:09 Hgb 12.8 g/dL (12.0-16.0) 07/31/18 05:09 Hct 39.3 % (37.0-47.0) 07/31/18 05:09 MCV 91.0 fL (81.0-99.0) 07/31/18 05:09 MCH 29.7 pg (27.0-31.0) 07/31/18 05:09 MCHC 32.6 g/dL (32.0-36.0) 07/31/18 05:09 RDW 14.3 % (12.0-15.0) 07/31/18 05:09 Plt Count 189 10^3/uL (130-450) 07/31/18 05:09 MPV 8.6 fL (7.9-10.8) 07/31/18 05:09 Neut # (Auto) 5.2 10^3/uL (1.5-6.6) 07/31/18 05:09 Lymph # (Auto) 2.0 10^3/uL (1.5-3.5) 07/31/18 05:09 Boyle # (Auto) 0.6 10^3/uL (0.0-1.0) 07/31/18 05:09 Eos # (Auto) 0.1 10^3/uL (0.0-0.7) 07/31/18 05:09 Baso # (Auto) 0.0 10^3/uL (0.0-0.1) 07/31/18 05:09 Absolute Nucleated RBC 0.01 x10^3/uL 07/31/18 05:09 Total Counted 100 07/30/18 19:12 Band Neuts % (Manual) 0 % (0-10) 07/30/18 19:12 Abnorm Lymph % (Manual) 0 % 07/30/18 19:12 Nucleated RBC % 0.1 /100WBC 07/31/18 05:09 Neutrophils # (Manual) 6.1 10^3/uL (1.5-6.6) 07/30/18 19:12 Lymphocytes # (Manual) 2.1 10^3/uL (1.5-3.5) 07/30/18 19:12 Monocytes # (Manual) 0.3 10^3/uL (0.0-1.0) 07/30/18 19:12 Eosinophils # (Manual) 0.1 10^3/uL (0-0.7) 07/30/18 19:12 Basophils # (Manual) 0.0 10^3/uL (0-0.1) 07/30/18 19:12 Differential Comment MANUAL DIFFERENTIAL 07/30/18 19:12 Manual Slide Review Indicated 07/30/18 19:12 WBC Morphology NORMAL APPEARANCE (NORMAL) 07/30/18 19:12 Platelet Estimate NORMAL (130-450,000) (NORMAL) 07/30/18 19:12 Platelet Morphology NORMAL APPEARANCE (NORMAL) 07/30/18 19:12 RBC Morph Micro Appear NORMAL APPEARANCE (NORMAL) 07/30/18 19:12 ESR 25 mm/Hr (0-30) 07/30/18 23:08 PT 14.3 secs (9.9-12.6) H 07/30/18 19:12 INR 1.3 (0.8-1.2) H 07/30/18 19:12 Sodium 133 mmol/L (135-145) L 07/31/18 14:03 Potassium 3.9 mmol/L (3.5-5.0) 07/31/18 14:03 Chloride 96 mmol/L (101-111) L 07/31/18 14:03 Carbon Dioxide 26 mmol/L (21-32) 07/31/18 14:03 Anion Gap 11.0 (6-13) 07/31/18 14:03 BUN 26 mg/dL (6-20) H 07/31/18 14:03 Creatinine 1.2 mg/dL (0.4-1.0) H 07/31/18 14:03 Estimated GFR (MDRD) 44 (>89) L 07/31/18 14:03 Glucose 333 mg/dL (70-100) H 07/31/18 14:03 Glycated Hemoglobin 7.7 % (4.6-6.2) H 07/31/18 14:03 Estim Average Glucose 174 (70-100) H 07/31/18 14:03 Lactic Acid 1.4 mmol/L (0.5-2.2) 07/30/18 23:08 Calcium 9.6 mg/dL (8.5-10.3) 07/31/18 14:03 Ionized Calcium NO 07/30/18 23:47 Phosphorus 1.6 mg/dL (2.5-4.6) L 07/31/18 05:09 Magnesium 1.3 mg/dL (1.7-2.8) L 07/31/18 05:09 Total Bilirubin 1.1 mg/dL (0.2-1.0) H 07/30/18 19:12 AST 21 IU/L (10-42) 07/30/18 19:12 ALT 17 IU/L (10-60) 07/30/18 19:12 Alkaline Phosphatase 49 IU/L (42-121) 07/30/18 19:12 Total Creatine Kinase 46 IU/L (22-269) 07/30/18 19:12 CK-MB (CK-2) 1.6 ng/mL (0.6-6.3) 07/30/18 19:12 Troponin I < 0.04 ng/mL (<0.49) 07/30/18 19:12 Total Protein 7.9 g/dL (6.7-8.2) 07/30/18 19:12 Albumin 4.3 g/dL (3.2-5.5) 07/30/18 19:12 Globulin 3.6 g/dL (2.1-4.2) 07/30/18 19:12 Albumin/Globulin Ratio 1.2 (1.0-2.2) 07/30/18 19:12 Triglycerides 715 mg/dL (-149) H 07/31/18 05:09 Cholesterol 233 mg/dL (-199) H 07/31/18 05:09 LDL Cholesterol Direct 63 mg/dL (-129) 07/31/18 05:09 LDL Cholesterol, Calc Not Reportable 07/31/18 05:09 VLDL Cholesterol Not Reportable 07/31/18 05:09 HDL Cholesterol 30 mg/dL (60-) L 07/31/18 05:09 LDL/HDL Ratio Not Reportable 07/31/18 05:09 dLDL/HDL Ratio 2.1 (<4.4) 07/31/18 05:09 Cholesterol/HDL Ratio 7.8 (<4.4) 07/31/18 05:09 Lipase 100 U/L (22-51) H 07/30/18 19:12 TSH 2.15 uIU/mL (0.34-5.60) 07/31/18 14:03 Prolactin 4.53 ng/mL 07/30/18 23:08 Urine Color YELLOW 07/31/18 03:30 Urine Clarity CLEAR (CLEAR) 07/31/18 03:30 Urine pH 5.0 PH (5.0-7.5) 07/31/18 03:30 Ur Specific Whitwell >=1.030 (1.002-1.030) H 07/31/18 03:30 Urine Protein 100 mg/dL (NEGATIVE) H 07/31/18 03:30 Urine Glucose (UA) 250 mg/dL (NEGATIVE) H 07/31/18 03:30 Urine Ketones 15 mg/dL (NEGATIVE) H 07/31/18 03:30 Urine Occult Blood TRACE-INTA (NEGATIVE) 07/31/18 03:30 Urine Nitrite NEGATIVE (NEGATIVE) 07/31/18 03:30 Urine Bilirubin NEGATIVE (NEGATIVE) 07/31/18 03:30 Urine Urobilinogen 0.2 (NORMAL) E.U./dL (NORMAL) 07/31/18 03:30 Ur Leukocyte Esterase NEGATIVE (NEGATIVE) 07/31/18 03:30 Urine RBC 3 /HPF (0-5) 07/31/18 03:30 Urine WBC 0-3 /HPF (0-5) 07/31/18 03:30 Ur Squamous Epith Cells MANY Squamous (<= Few) H 07/31/18 03:30 Urine Bacteria Rare /HPF (None Seen) 07/31/18 03:30 Urine Casts 6-10 Hyaline Casts /LPF 07/31/18 03:30 Urine Mucus Moderate Strands 07/31/18 03:30 Ur Microscopic Review INDICATED 07/31/18 03:30 Urine Culture Comments NOT INDICATED 07/31/18 03:30 Urine Opiates Screen NEGATIVE (NEGATIVE) 07/31/18 03:30 Ur Oxycodone Screen POSITIVE (NEGATIVE) H 07/31/18 03:30 Urine Methadone Screen NEGATIVE (NEGATIVE) 07/31/18 03:30 Ur Propoxyphene Screen NEGATIVE (NEGATIVE) 07/31/18 03:30 Ur Barbiturates Screen NEGATIVE (NEGATIVE) 07/31/18 03:30 Ur Tricyclics Screen POSITIVE (NEGATIVE) H 07/31/18 03:30 Ur Phencyclidine Scrn NEGATIVE (NEGATIVE) 07/31/18 03:30 Ur Amphetamine Screen NEGATIVE (NEGATIVE) 07/31/18 03:30 U Methamphetamines Scrn NEGATIVE (NEGATIVE) 07/31/18 03:30 U Benzodiazepines Scrn NEGATIVE (NEGATIVE) 07/31/18 03:30 Urine Cocaine Screen NEGATIVE (NEGATIVE) 07/31/18 03:30 U Cannabinoids Screen NEGATIVE (NEGATIVE) 07/31/18 03:30 Ethyl Alcohol < 5.0 mg/dL 07/30/18 19:12 Influenza A (Rapid) Negative (Negative) 07/31/18 01:00 Influenza B (Rapid) Negative (Negative) 07/31/18 01:00
[2018-07-31] MEDS: AMITRIPTYLINE 25 MG TABLET PO SCH (20:43)
[2018-07-31] MEDS: GABAPENTIN 400 MG CAPSULE PO SCH (20:43)
[2018-07-31] MEDS: SODIUM CHLORIDE 0.9% 1,000 ML IV SCH (20:55)
[2018-07-31] MEDS: levETIRAcetam INJ 500 MG in SODIUM CHLORIDE 0.9% 100ML 100 ML IV SCH (20:58)
[2018-07-31] MEDS ORDERED: ASPIRIN EC 81 MG TABLET PO SCH (21:00)
[2018-07-31] MEDS ORDERED: INSULIN GLARGINE 300 UNIT/3 ML PEN SUBQ SCH (21:00)
[2018-08-01] MEDS ORDERED: LEVALBUTEROL 1.25 MG/3 ML NEB INH PRN (07:02)
[2018-08-01] MEDS: GABAPENTIN 400 MG CAPSULE PO SCH ×2 (09:15→22:26)
[2018-08-01] MEDS: LOSARTAN 50 MG TABLET PO SCH (09:15)
[2018-08-01] MEDS: FENOFIBRATE 48 MG TABLET PO SCH (09:15)
[2018-08-01] MEDS: ATORVASTATIN 10 MG TABLET PO SCH (09:15)
[2018-08-01] MEDS: CHOLECALCIFEROL 1,000 UNIT TABLET PO SCH (09:15)
[2018-08-01] MEDS: DULoxetine 30 MG CAPSULE PO SCH (09:15)
[2018-08-01] MEDS: ASPIRIN 325 MG TABLET PO SCH (09:15)
[2018-08-01] MEDS: levETIRAcetam INJ 500 MG in SODIUM CHLORIDE 0.9% 100ML 100 ML IV SCH ×2 (09:21→22:27)
[2018-08-01] MEDS: INSULIN ASPART 300 UNIT/3 ML PEN SUBQ SCH ×4 (09:32→22:26)
[2018-08-01] MEDS: INSULIN GLARGINE 300 UNIT/3 ML PEN SUBQ SCH ×2 (09:33→22:25)
[2018-08-01] MEDS: HEPARIN 5,000 UNIT/ML VIAL SUBQ SCH ×2 (09:39→22:27)
[2018-08-01] MEDS: POLYETHYLENE GLYCOL 3350 17 GM PACKET PO SCH (09:43)
[2018-08-01] MEDS: KETOROLAC 15 MG/ML VIAL IVP PRN (10:06)
[2018-08-01] MEDS: SODIUM CHLORIDE 0.9% 1,000 ML IV SCH ×2 (10:06→22:27)
[2018-08-01] MEDS: PANTOPRAZOLE 40 MG TABLET PO SCH (11:25)
[2018-08-01 14:00] LABS: BASOPHILS % (AUTO) 0.4 %; EOSINOPHILS # (AUTO) 0.2 10^3/uL (0.0-0.7); HGB - HEMOGLOBIN 12.2 g/dL (12.0-16.0); LYMPHOCYTES % (AUTO) 18.8 %; MEAN CORPUSCULAR HEMOGLOBIN 30.9 pg (27.0-31.0); MEAN CORPUSCULAR HGB CONC 33.9 g/dL (32.0-36.0); MEAN PLATELET VOLUME 8.8 fL (7.9-10.8); MONOCYTES # (AUTO) 0.3 10^3/uL (0.0-1.0); MONOCYTES % (AUTO) 5.1 %; NEUTROPHILS # (AUTO) 3.9 10^3/uL (1.5-6.6); NEUTROPHILS % (AUTO) 71.7 %; PLT - PLATELET COUNT 173 10^3/uL (130-450); RED BLOOD COUNT 3.96 10^6/uL (4.20-5.40); RED CELL DISTRIBUTION WIDTH 14.5 % (12.0-15.0); WHITE BLOOD COUNT 5.4 x10^3/uL (4.8-10.8)
[2018-08-01 14:10] LABS: ALBUMIN 3.7 g/dL (3.2-5.5); ALBUMIN/GLOBULIN RATIO 1.2 (1.0-2.2); BILIRUBIN,TOTAL 0.8 mg/dL (0.2-1.0); CALCIUM 8.3 mg/dL (8.5-10.3); CREATININE 1.1 mg/dL (0.4-1.0); TOTAL PROTEIN 6.7 g/dL (6.7-8.2)
[2018-08-01] MEDS: SODIUM CHLORIDE FLUSH 0.9% 10 ML SYRINGE IVP SCH ×3 (15:24→23:59)
[2018-08-01] MEDS ORDERED: oxyCOD/ACETAMIN 5 MG/325 MG TABLET PO PRN (15:27)
[2018-08-01] MEDS ORDERED: oxyCODONE 5 MG TABLET PO PRN (16:42)
[2018-08-01] MEDS ORDERED: INSULIN ASPART 300 UNIT/3 ML PEN SUBQ SCH (17:00)
[2018-08-01] MEDS: AMITRIPTYLINE 25 MG TABLET PO SCH (22:27)
[2018-08-02] MEDS: PANTOPRAZOLE 40 MG TABLET PO SCH (06:53)
[2018-08-02] MEDS ORDERED: FORMOTEROL FUMARATE NEB 20 MCG/2 ML INH STA (06:56)
[2018-08-02] MEDS: HEPARIN 5,000 UNIT/ML VIAL SUBQ SCH ×2 (08:39→21:02)
[2018-08-02] MEDS: INSULIN ASPART 300 UNIT/3 ML PEN SUBQ SCH ×6 (08:40→21:01)
[2018-08-02] MEDS: INSULIN GLARGINE 300 UNIT/3 ML PEN SUBQ SCH (08:43)
[2018-08-02] MEDS: POLYETHYLENE GLYCOL 3350 17 GM PACKET PO SCH (08:44)
[2018-08-02] MEDS: levETIRAcetam INJ 500 MG in SODIUM CHLORIDE 0.9% 100ML 100 ML IV SCH (08:45)
[2018-08-02] MEDS: ASPIRIN 325 MG TABLET PO SCH (08:51)
[2018-08-02] MEDS: CHOLECALCIFEROL 1,000 UNIT TABLET PO SCH (08:51)
[2018-08-02] MEDS: FENOFIBRATE 48 MG TABLET PO SCH (08:51)
[2018-08-02] MEDS: GABAPENTIN 400 MG CAPSULE PO SCH ×2 (08:51→20:35)
[2018-08-02] MEDS: DULoxetine 30 MG CAPSULE PO SCH (08:52)
[2018-08-02] MEDS: LOSARTAN 50 MG TABLET PO SCH (08:52)
[2018-08-02] MEDS: ATORVASTATIN 10 MG TABLET PO SCH (08:52)
[2018-08-02] MEDS: SODIUM CHLORIDE FLUSH 0.9% 10 ML SYRINGE IVP SCH ×2 (08:52→17:21)
--- NOTE | 2018-08-02 09:21 | PROVIDER PROGRESS NOTE ---
Subjective - Prog Note Date Prog Note Date: 08/01/18 Prog Note Time: 17:00 - Subjective Subjective: She has been sleeping most of the day. Easy to arouse but still confused. There is no where she is. Why she is here. Mumbles her responses. Not clear if she has any distress at all. But does not appear to have any. Denies chest pain, cough, and "I just hurt all over". Objective - Vital Signs/Intake & Output Reviewed Vital Signs: Yes Vital Signs: Vital Signs x48h Selected Entries 08/01/18 15:00 Temperature 36.5 C Heart Rate [ 71 Monitoring electrodes] Blood Pressure 135/49 H [Left Brachial artery] O2 Saturation 94 Temp Pulse Resp BP Pulse Ox 08/02/18 07:10 36.7 C 71 16 111/54 L 100 Intake & Output: Intake & Output 07/30/18 07/31/18 08/01/18 08/02/18 23:59 23:59 23:59 23:59 Intake Total 1050 2288.0 2970 270 Output Total 650 1252 550 Balance 1050 1638.0 1718 -280 - Objective General Appearance: positive: No acute distress, Lethargic, Other (Pale, morbidly obese white female who looks younger than stated age, opens eyes to my voice, but mumbles responses) Eyes Bilateral: positive: PERRL, EOMI ENT: positive: Pharynx nml Neck: positive: No JVD. negative: Stiff neck, Carotid bruit Respiratory: positive: Chest non-tender, Other (Falls asleep easily and snores with respiration). negative: Wheezes, Rales, Rhonchi Cardiovascular: positive: Regular rate & rhythm. negative: Systolic murmur, Gallop/S4, Friction rub Abdomen: positive: Non-tender, No organomegaly, Nml bowel sounds, No distention, Other (Obese) Skin: positive: Warm, Dry, Pallor Extremities: positive: Non-tender, No pedal edema Neurologic/Psychiatric: positive: CN's nml (2-12), Motor nml, Sensation nml, Disoriented to person, Disoriented to place, Disoriented to time, Slurred/abnml speech - Lab Results Fish Bones: 08/01/18 13:55 08/01/18 13:55 Other Labs: Lab Results x24hrs 08/01/18 08/01/18 Range/Units 13:55 13:55 WBC 5.4 (4.8-10.8) x10^3/uL RBC 3.96 L (4.20-5.40) 10^6/uL Hgb 12.2 (12.0-16.0) g/dL Hct 36.1 L (37.0-47.0) % MCV 91.0 (81.0-99.0) fL MCH 30.9 (27.0-31.0) pg MCHC 33.9 (32.0-36.0) g/dL RDW 14.5 (12.0-15.0) % Plt Count 173 (130-450) 10^3/uL MPV 8.8 (7.9-10.8) fL Neut # (Auto) 3.9 (1.5-6.6) 10^3/uL Lymph # (Auto) 1.0 L (1.5-3.5) 10^3/uL Warren # (Auto) 0.3 (0.0-1.0) 10^3/uL Eos # (Auto) 0.2 (0.0-0.7) 10^3/uL Baso # (Auto) 0.0 (0.0-0.1) 10^3/uL Absolute Nucleated RBC 0.00 x10^3/uL Nucleated RBC % 0.0 /100WBC Sodium 129 L (135-145) mmol/L Potassium 4.0 (3.5-5.0) mmol/L Chloride 96 L (101-111) mmol/L Carbon Dioxide 26 (21-32) mmol/L Anion Gap 7.0 (6-13) BUN 23 H (6-20) mg/dL Creatinine 1.1 H (0.4-1.0) mg/dL Estimated GFR (MDRD) 49 L (>89) Glucose 354 H (70-100) mg/dL Calcium 8.3 L (8.5-10.3) mg/dL Total Bilirubin 0.8 (0.2-1.0) mg/dL AST 32 (10-42) IU/L ALT 18 (10-60) IU/L Alkaline Phosphatase 58 (42-121) IU/L Total Protein 6.7 (6.7-8.2) g/dL Albumin 3.7 (3.2-5.5) g/dL Globulin 3.0 (2.1-4.2) g/dL Albumin/Globulin Ratio 1.2 (1.0-2.2) ABX Reporting Has patient been on IV antibiotics over the past 48 hours?: No Assessment/Plan - Problem List (1) Seizure Impression: The recurrent episodes of confusion, that prompted this admission, were probably post-ictal state. The [id number] confirms that. was In ICU and now on Med surg. No further seizures. She is much more awake today. Appropriate. Unfortunately no documentation if previous hospitalist called for recommendation from neurology on meds. Will start Keppra tomorrow. (2) Diabetes mellitus, insulin dependent (IDDM), uncontrolled Qualifiers: Glycemic state: with hyperglycemia Qualified Code(s): E10.65 - Type 1 diabetes mellitus with hyperglycemia Assessment/Plan: Continue carb-controlled diet, fingerstick checks and Insulin coverage. No Metformin use, in case she needs any imaging using dye. Resume her FAHAD-I and ASA. Glucose yesterday was firmly in the mid to high 200s. This morning she is 227 and by noon she is 312. (3) Hypertriglyceridemia Assessment/Plan: Her Trig level is extremely high. Started on Fenofibrate. Better glu control will also help the high level. (4) Depression Assessment/Plan: Will resume her Amitryptiline and Cymbalta.
[2018-08-02] MEDS: BUDESONIDE 0.5 MG/2 ML NEB INH SCH ×2 (10:00→18:15)
--- NOTE | 2018-08-02 10:43 | PROVIDER PROGRESS NOTE ---
Subjective - Prog Note Date Prog Note Date: 08/02/18 Prog Note Time: 10:43 - Subjective Pt reports feeling: Improved Subjective: She really is much more awake today. Really does not understand what happened. She knows where she is today, but not the events that led up to it. She does not remember meeting me yesterday. She is hungry. Says that she hurts all over. Her back and legs hurt. She says that the same complaints she is always had it is not new. She denies coughing, wheezing. No abdominal pain. No chest pain. No headache, blurred vision, or unexpected paresthesias. Current Medications - Current Medications Current Medications: Active Medications Amitriptyline HCl (Elavil) 50 mg PO QPM [facility] Last Admin: 08/01/18 22:27 Dose: 50 mg Aspirin (Fiona) 325 mg PO DAILY [facility] Last Admin: 08/02/18 08:51 Dose: 325 mg Atorvastatin Calcium (Lipitor) 10 mg PO DAILY [facility] Last Admin: 08/02/18 08:52 Dose: 10 mg Budesonide (Pulmicort) 0.5 mg INH RTBID [facility] Last Admin: 08/02/18 10:00 Dose: 0.5 mg Cholecalciferol (Vitamin D3) 2,000 unit PO DAILY [facility] Last Admin: 08/02/18 08:51 Dose: 2,000 unit Duloxetine HCl (Cymbalta) 60 mg PO DAILY [facility] Last Admin: 08/02/18 08:52 Dose: 60 mg Fenofibrate (Tricor) 48 mg PO DAILY [facility] Last Admin: 08/02/18 08:51 Dose: 48 mg Gabapentin (Neurontin) 1,200 mg PO BID [facility] Last Admin: 08/02/18 08:51 Dose: 1,200 mg Heparin Sodium (Porcine) () 5,000 unit SUBQ BID [facility] Last Admin: 08/02/18 08:39 Dose: 5,000 unit Sodium Chloride (Normal Saline 0.9%) 1,000 mls @ 80 mls/hr IV .[id number] [facility] Last Admin: 08/01/18 22:27 Dose: 80 mls/hr Levetiracetam 500 mg/ Sodium (Chloride) 105 mls @ 400 mls/hr IV BID [facility] Last Admin: 08/02/18 08:45 Dose: 400 mls/hr Insulin Aspart (Novolog) 3 - 11 unit SUBQ 0800,1200,1700,2100 [facility]; Protocol Last Admin: 08/02/18 08:40 Dose: 5 unit Insulin Glargine (Lantus Solostar) 25 unit SUBQ BID [facility] Last Admin: 08/02/18 08:43 Dose: 25 unit Ketorolac Tromethamine (Toradol Inj (15mg)) 15 mg IVP Q6HR PRN PRN Reason: PAIN Stop: 08/05/18 01:38 Last Admin: 08/01/18 10:06 Dose: 15 mg Levalbuterol HCl (Xopenex) 1.25 mg INH Q4H PRN PRN Reason: Shortness of Air/Wheezing Levetiracetam (Keppra) 500 mg PO BID [facility] Losartan Potassium (Cozaar) 50 mg PO DAILY [facility] Last Admin: 08/02/18 08:52 Dose: 50 mg Ondansetron HCl (Zofran Inj) 4 mg IVP Q6HR PRN PRN Reason: Nausea / Vomiting Oxycodone HCl (Roxicodone) 10 mg PO Q4HR PRN PRN Reason: PAIN Pantoprazole Sodium (Protonix) 40 mg PO QDAC [facility] Last Admin: 08/02/18 06:53 Dose: 40 mg Polyethylene Glycol (Miralax) 17 gm PO DAILY [facility] Last Admin: 08/02/18 08:44 Dose: 17 gm Sodium Chloride (Normal Saline Flush 0.9%) 10 ml IVP PRN PRN PRN Reason: NEEDED PER PROVIDER ORDERS Last Admin: 07/31/18 02:01 Dose: 10 ml Sodium Chloride (Normal Saline Flush 0.9%) 10 ml IVP 0100,0900,1700 [facility] Last Admin: 08/02/18 08:52 Dose: 10 ml Aspirin [Aspir 81] 81 mg PO QPM 07/22/14 Duloxetine HCl [Cymbalta] 60 mg PO DAILY 07/22/14 Gabapentin 1,200 mg PO BID 07/22/14 Levalbuterol Tartrate [Xopenex Hfa] 2 inh INH QID PRN 07/22/14 Losartan Potassium 50 mg PO DAILY 07/22/14 Metformin HCl [Fortamet] 1,000 mg PO BID 07/22/14 Omeprazole 20 mg PO DAILY 07/22/14 Amitriptyline [Elavil] 50 mg QPM 11/08/15 Hydroxyzine HCl 25 - 50 mg PO Q6H PRN 11/08/15 Cholecalciferol (Vitamin D3) [Vitamin D] 2,000 unit PO DAILY 07/31/18 Fluticasone/Salmeterol [Advair 250-50 Diskus] 1 inh IH BID 07/31/18 Insulin Aspart [NovoLOG] 0 unit SQ .SLIDING SCALE PRN 07/31/18 Montelukast Sodium 10 mg PO QPM 07/31/18 Oxycodone HCl/Acetaminophen [Oxycodone-Acetaminophen 10-325] 1 tab PO .Q4-6H PRN MDD 3 tablets 07/31/18 Promethazine HCl 25 mg PO Q8H PRN 07/31/18 Objective - Vital Signs/Intake & Output Reviewed Vital Signs: Yes Vital Signs: Vital Signs x48h Temp Pulse Pulse Resp BP Pulse Ox 08/02/18 10:01 82 14 08/02/18 07:10 36.7 C 71 16 111/54 L 100 Intake & Output: Intake & Output 07/30/18 07/31/18 08/01/18 08/02/18 23:59 23:59 23:59 23:59 Intake Total 1050 2288.0 2970 270 Output Total 650 1252 550 Balance 1050 1638.0 1718 -280 - Objective General Appearance: positive: No acute distress, Alert, Other (Pale, morbidly overweight white female who looks younger than stated age, tired but seems to be at baseline. Lucid sequential speech pattern. Much better than yesterday where she was mumbling even though she was awake) Eyes Bilateral: positive: PERRL, EOMI ENT: positive: Pharynx nml Neck: positive: No JVD. negative: Stiff neck, Carotid bruit Respiratory: positive: Chest non-tender. negative: Wheezes, Rales, Rhonchi Cardiovascular: positive: Regular rate & rhythm. negative: Gallop/S4, Friction rub Abdomen: positive: Non-tender, No organomegaly, Nml bowel sounds, No distention Skin: positive: Warm, Dry Extremities: positive: Full ROM, No pedal edema Neurologic/Psychiatric: positive: Oriented x3 (but needs promptin on the date.), CN's nml (2-12), Motor nml - Lab Results Fish Bones: 08/01/18 13:55 08/01/18 13:55 Other Labs: Lab Results x24hrs 08/01/18 08/01/18 Range/Units 13:55 13:55 WBC 5.4 (4.8-10.8) x10^3/uL RBC 3.96 L (4.20-5.40) 10^6/uL Hgb 12.2 (12.0-16.0) g/dL Hct 36.1 L (37.0-47.0) % MCV 91.0 (81.0-99.0) fL MCH 30.9 (27.0-31.0) pg MCHC 33.9 (32.0-36.0) g/dL RDW 14.5 (12.0-15.0) % Plt Count 173 (130-450) 10^3/uL MPV 8.8 (7.9-10.8) fL Neut # (Auto) 3.9 (1.5-6.6) 10^3/uL Lymph # (Auto) 1.0 L (1.5-3.5) 10^3/uL Mathews # (Auto) 0.3 (0.0-1.0) 10^3/uL Eos # (Auto) 0.2 (0.0-0.7) 10^3/uL Baso # (Auto) 0.0 (0.0-0.1) 10^3/uL Absolute Nucleated RBC 0.00 x10^3/uL Nucleated RBC % 0.0 /100WBC Sodium 129 L (135-145) mmol/L Potassium 4.0 (3.5-5.0) mmol/L Chloride 96 L (101-111) mmol/L Carbon Dioxide 26 (21-32) mmol/L Anion Gap 7.0 (6-13) BUN 23 H (6-20) mg/dL Creatinine 1.1 H (0.4-1.0) mg/dL Estimated GFR (MDRD) 49 L (>89) Glucose 354 H (70-100) mg/dL Calcium 8.3 L (8.5-10.3) mg/dL Total Bilirubin 0.8 (0.2-1.0) mg/dL AST 32 (10-42) IU/L ALT 18 (10-60) IU/L Alkaline Phosphatase 58 (42-121) IU/L Total Protein 6.7 (6.7-8.2) g/dL Albumin 3.7 (3.2-5.5) g/dL Globulin 3.0 (2.1-4.2) g/dL Albumin/Globulin Ratio 1.2 (1.0-2.2) ABX Reporting Has patient been on IV antibiotics over the past 48 hours?: No Assessment/Plan - Problem List (1) Seizure Impression: The recurrent episodes of confusion, that prompted this admission, were probably post-ictal state. The [id number] confirms that. was In ICU and now on Med surg. No further seizures. She is much more awake today than even yesterday. Appropriate. Unfortunately no documentation if previous hospitalist called for recommendation from neurology on meds. Will start Keppra today. will get her up out of bed with bath. walk her. If stable today, dc in am. (2) Diabetes mellitus, insulin dependent (IDDM), uncontrolled Qualifiers: Glycemic state: with hyperglycemia Qualified Code(s): E10.65 - Type 1 diabetes mellitus with hyperglycemia Assessment/Plan: Continue carb-controlled diet, fingerstick checks and Insulin coverage. No Metformin use, in case she needs any imaging using dye. Resume her FAHAD-I and ASA. Glucose continues to be high. Will increase from Lantus 25 U SQ bid to 30 units in am and 25 in pm (3) Hypertriglyceridemia Assessment/Plan: Her Trig level is extremely high. Started on Fenofibrate. Better glu control will also help the high level. (4) Depression Assessment/Plan: Will resume her Amitryptiline and Cymbalta.
[2018-08-02] MEDS ORDERED: levETIRAcetam 100 MG/ML 473ML BOTTLE PO SCH (11:00)
[2018-08-02 14:06] LABS: ANA SCREEN NEGATIVE (NEGATIVE)
[2018-08-02] MEDS: oxyCODONE 5 MG TABLET PO PRN (14:33)
[2018-08-02] MEDS: AMITRIPTYLINE 25 MG TABLET PO SCH (20:35)
[2018-08-02] MEDS: levETIRAcetam 500 MG/5 ML UDC PO SCH (20:36)
[2018-08-02] MEDS ORDERED: INSULIN GLARGINE 300 UNIT/3 ML PEN SUBQ SCH (21:00)
[2018-08-03] MEDS: oxyCODONE 5 MG TABLET PO PRN (02:16)
[2018-08-03] MEDS: SODIUM CHLORIDE FLUSH 0.9% 10 ML SYRINGE IVP SCH ×2 (02:17→08:43)
[2018-08-03] MEDS: PANTOPRAZOLE 40 MG TABLET PO SCH ×2 (06:36→07:40)
[2018-08-03 07:33] VITALS: BP 119/58
[2018-08-03] MEDS: BUDESONIDE 0.5 MG/2 ML NEB INH SCH (07:43)
[2018-08-03] MEDS ORDERED: INSULIN GLARGINE 300 UNIT/3 ML PEN SUBQ SCH (08:00)
[2018-08-03] MEDS: POLYETHYLENE GLYCOL 3350 17 GM PACKET PO SCH (08:40)
[2018-08-03] MEDS: ASPIRIN 325 MG TABLET PO SCH (08:41)
[2018-08-03] MEDS: ATORVASTATIN 10 MG TABLET PO SCH (08:42)
[2018-08-03] MEDS: CHOLECALCIFEROL 1,000 UNIT TABLET PO SCH (08:42)
[2018-08-03] MEDS: DULoxetine 30 MG CAPSULE PO SCH (08:42)
[2018-08-03] MEDS: FENOFIBRATE 48 MG TABLET PO SCH (08:42)
[2018-08-03] MEDS: LOSARTAN 50 MG TABLET PO SCH (08:42)
[2018-08-03] MEDS: levETIRAcetam 500 MG/5 ML UDC PO SCH (08:42)
[2018-08-03] MEDS: GABAPENTIN 400 MG CAPSULE PO SCH (08:42)
[2018-08-03] MEDS: INSULIN ASPART 300 UNIT/3 ML PEN SUBQ SCH ×2 (08:43→12:10)
[2018-08-03] MEDS: HEPARIN 5,000 UNIT/ML VIAL SUBQ SCH (08:49)
[2018-08-03] MEDS ORDERED: SENNA 8.6 MG TABLET PO SCH (09:00)
[2018-08-03] MEDS ORDERED: DOCUSATE SODIUM 250 MG CAPSULE PO SCH (09:00)
--- NOTE | 2018-08-03 11:40 | Discharge Plan ---
Discharge Plan Disposition: Home, Self Care Condition: Good Prescriptions: Fenofibrate [Tricor] 48 mg PO DAILY #30 tablet levETIRAcetam [Keppra] 500 mg PO BID #60 udc Diet: Regular Activity Restrictions: Activity as Tolerated Shower Restrictions: No Driving Restrictions: No Additional Instructions or Follow Up instructions: You were admitted to the hospital because you had a loss of consciousness, inability to speak, and confusion. Although you did have problems with your potassium and electrolytes because your diabetes was uncontrolled, we do not think that was the problem. We think that you may have been having seizures. CAT scan of the head and MRI of the head show age-appropriate changes in your brain. You did not have a stroke, hemorrhage, or blow to the head. We would recommend that you see a neurologist. You need to be referred to see 1 after you see your primary care provider, Jose Larson. While here, it took you quite a bit of time to wake up and be alert. You had been in bed for 4 days and it was really difficult for you to get around because you had lost some strength. I would ask Dr. Larson to please refer you to outpatient physical therapy. You have 2 new medicines to take. One is for seizures, called Keppra. The other drug is called TriCor. TriCor was started on you because your triglycerides were dangerously high at 715. Normal is usually less than 150. Watch your diet at home. Avoid fats, fried foods, and carbohydrates. Have Dr. Larson check your cholesterol panel in a month. No Smoking: If you smoke, Please STOP! Call for help. Follow-up with: Jose Larson MD [Provider Admit Priv/Credential] -
--- NOTE | 2018-08-08 14:25 | DISCHARGE SUMMARY ---
Physician: Yee Vital MD DATE OF ADMISSION: 07/30/2018 DATE OF DISCHARGE: 08/03/2018 DISCHARGE DIAGNOSES: 1. Complex local/partial seizures. 2. Postictal encephalopathy. 3. Type 2 diabetes mellitus with hyperglycemia. 4. Major depressive disorder. 5. Uncontrolled hypertension. 6. Hyponatremia. 7. Hypomagnesemia. 8. Dehydration. DISCHARGE MEDICATIONS: 1. Elavil 50 mg p.o. q.p.m. 2. Aspirin 81 mg p.o. q.p.m. 3. Vitamin D3 2000 units daily. 4. Cymbalta 60 mg daily. 5. Advair 250/50 puff b.i.d. 6. Gabapentin 1200 mg p.o. b.i.d. 7. Hydroxyzine 25-50 mg p.o. q.p.m. p.r.n. 8. Sliding scale NovoLog insulin before meals t.i.d. 9. Metformin extended release 1000 mg p.o. b.i.d. 10. Keppra 500 mg p.o. b.i.d. 11. Tricor 48 mg p.o. daily. 12. Promethazine 25 mg p.o. q. 8 hours p.r.n. 13. Oxycodone with acetaminophen 10 mg/325 1 tablet every 4-6 hours as needed, maximum 3 tablets a day. 14. Omeprazole 20 mg p.o. daily. 15. Singulair 10 mg p.o. q.p.m. 16. Losartan 50 mg p.o. q.p.m. 17. Xopenex inhaler two inhalations q.i.d. PRINCIPAL PROCEDURES: 1. Head CT with no acute intracranial abnormalities identified. 2. Head and neck CT angiograms normal, no aneurysms, no stenosis. 3. Brain MRI, age appropriate senescent changes. Mild to moderate white matter disease. HISTORY OF PRESENT ILLNESS: The patient is a 73-year-old female who lives in a duplex [facility]. They both live independently and they visit each other often. The patient is described as ful ly functional, managing her diabetes, checking her blood glucose at least 3 times a day and takes her medications regularly. The patient has a major depressive disorder, is on many psychoactive drugs. The patient was hospitalized in [place] 4 years ago, at which time she was critically ill and elba t the patient had a high risk of dying. However, she did make a full recovery, but the diagnosis was not clear. She was worked up for seizures and also workup for possible lung mass. On subsequent im aging, no mass was found. She was never fully evaluated by a neurologist nor has she been on antiepi leptic drugs. The patient has spells starting with hallucinations followed by flu-like illness and subsequently pro foundly altered mental status. They happened 4 or 5 times in the last few years. this time, the pat cristiano's symptoms started a week ago. She saw a cow that was not present. A visual hallucination. Yordy gamez subsequently developed flu-like symptoms which lasted a few days. Today, the patient appeared diff erent and a mental status change was noted around noontime. However, the patient told her sister elba sharif she had just woken up from sleep and that is all it was. A few hours later, when the sister again spoke to the patient, she noted the patient was talking nonsense, could not meaningfully interact or react. Answers were bizarre and she had an altered mental status. There were no focal neurologic si gns. They called EMS and the patient was brought to the emergency room. Her NIH stroke scale was 4, which was given mainly for the symptom of aphasia with word salad. CT of the head was negative, and [place] [employer] consultant recommended a CT angiogram of head and neck. It was completed and no large vessel occlusion or stenosis was shown. Therefore, no transfer of the patient was recommended. The neurologist recommended that we admit the patient here at [facility] and complete her workup with MRI. The flu-like symptoms associated with this are nausea, vomiting. No headache, no fever, no chi lls. No nuchal rigidity. The patient was brought into the hospital with his aphasia and confusion. EKG had a sinus rhythm and telemetry showed sinus rhythm. Troponins were negative, sodium 129, chloride 91, BUN 22, creatinine 1.1, glucose 354, calcium 10.8, magnesium 0.9. LFTs are unremarkable. INR was 1.2. White cell cou nt was normal and hemoglobin was normal. She was felt to be encephalopathic with an expressive aphasia and no focal neurological examination p resent. It was consistent with a complex focal partial seizure, then a cerebrovascular accident. Ho wever, a TIA was still in the differential diagnosis. Also, of note was a medication list. She has multiple psychoactive drugs, including antidepressants, tricyclics and opiates. Could a tricyclic ov erdose or supratherapeutic level of some of these medicines lead to a lower seizure threshold and the reby the seizures? No sedation. She also had uncontrolled hypertension with a blood pressure of 180/ 86. Could she have posterior reversible hypertensive encephalopathy? Hyponatremia was present and i t could be pseudohyponatremia in the setting of hyperglycemia or, because hypomagnesemia was present, salt wasting, nephropathy or dehydration and hypovolemia. The hypomagnesemia was evaluated in the f mel of omeprazole use, possible familial hypomagnesemia, uncontrolled diabetes. Of note, she is not on a diuretic. Overall, her hospital course consisted of supportive care with IV fluids, control of her sugars. The MRI was completed in the inpatient setting and was essentially negative other than for senescent lobito nges. She remained encephalopathic, confused, and slept most of the first 2 days. When she would wa ke up, she did not know where she was. Responses were mumbling. She did say that she does "hurt all over." She did have her triglyceride levels being extremely high and she was started on fenofibrate . In discussions with neurology, it was recommended that she be started on Keppra. On the she woke up. She was appropriate, alert. Had no understanding of what happened. She does not remember any of the events leading up to it. She was complaining of hunger, still complaining of diffuse myal gias in her back and legs hurting, but no focal neurological deficits, blood pressure was now control led at 111/54. Lantus was started during her stay because of her uncontrolled diabetes and that was increased during her stay. Glycosylated hemoglobin was 7.7%. In the outpatient setting this patient is on metformin and sliding scale insulin. Would it be appropriate for her to stay on losartan in [facility] outpatient setting? On the day of discharge, the patient was alert, oriented, ambulating in the room. Eating full meals. Temperature was 36.7, pulse was 71, blood pressure 119/58, respirations 18, and 95% on room air. S he was a quiet affect, morbidly obese white female who looks her stated age, in no acute distress. N markel was supple without goiter or bruits. Lungs were completely clear to auscultation and percussion. PMI was normally placed. Her phosphorus and magnesium had been supplemented. Triglycerides were 715 and cholesterol 233 and s he will need this repeated in 6 weeks. She was still felt to be somewhat dehydrated because of her h yperglycemia. She did not want us to send her home on Lantus. Glucose was 354, and I explained to er that this is still a little too high for someone who needed to be under better control. I asked er to please make sure she drinks plenty of water, and discuss with her PCP changing her medication. I would also recommend that she be seen by neurology in the outpatient setting, and I also recommend that she get outpatient physical therapy. Keppra may need to be increased to 750 mg p.o. b.i.d. from the 500 mg p.o. b.i.d. Greater than 30 minutes was spent in coordinating discharge. TD: 08/08/2018 09:45
== END 2018-08-03 13:23 | disposition home or self-care (01) | DRG 101 ==
LOC: EDUNIT# → ED 18:28 → MS3 23:02 → ICU 07-31 19:32 → MS3 08-01 14:50
PROVIDERS: ADMIT Internal Medicine; ATTEND Specialist
DX: I63.9 Cerebral infarction, unspecified (principal); G40.209 Localization-related (focal) (partial) symptomatic epilepsy and epileptic syndromes with complex partial seizures, not intractable, without status epilepticus; G93.49 Other encephalopathy; E78.00 Pure hypercholesterolemia, unspecified; J45.909 Unspecified asthma, uncomplicated; E11.9 Type 2 diabetes mellitus without complications; E87.1 Hypo-osmolality and hyponatremia; R29.704 NIHSS score 4; R47.01 Aphasia; E11.65 Type 2 diabetes mellitus with hyperglycemia; E86.0 Dehydration; E83.42 Hypomagnesemia; F32.9 Major depressive disorder, single episode, unspecified; I10 Essential (primary) hypertension; E78.5 Hyperlipidemia, unspecified; G89.29 Other chronic pain; M54.9 Dorsalgia, unspecified; E66.01 Morbid (severe) obesity due to excess calories; Z68.33 Body mass index [BMI] 33.0-33.9, adult; Z79.82 Long term (current) use of aspirin; Z79.84 Long term (current) use of oral hypoglycemic drugs; Z79.891 Long term (current) use of opiate analgesic; Z79.899 Other long term (current) drug therapy; Z79.4 Long term (current) use of insulin; Z96.651 Presence of right artificial knee joint
CPT/HCPCS: 36415; 70450; 70496; 70498; 70551; 80048; 80053; 80061; 80306; 80320; 81001; 81003; 82310; 82550; 82553; 83036; 83605; 83690; 83721; 83735; 84100; 84146; 84443; 84484; 85025; 85610; 85651; 86038; 87086; 87275; 87276; 93005; 93306; 94640; 96365; 99285

== ENCOUNTER 2018-11-18 10:36 | Outpatient (CLI) | payer MEDICARE, OTHER | END 2018-11-18 10:37 | disposition critical access hospital (66) | LOC: EMS 10:36 | PROVIDERS: ATTEND Surgery | DX: R41.0 Disorientation, unspecified (principal); R47.01 Aphasia | CPT/HCPCS: A0425; A0429 ==

== ENCOUNTER 2018-11-18 10:43 | Inpatient (IN) | payer MEDICARE, OTHER ==
--- NOTE | 2018-11-18 11:01 | ED Physician Documentation ---
History of Present Illness - Stated complaint Stated Complaint: CONFUSION - Chief complaint Chief Complaint: Neuro - History obtained from History obtained from: Patient - History of Present Illness Timing: Yesterday Pain level max: 4 - Additonal information Additional information: Patient is a 73-year-old female with history of nonspecified brain mass and previous workups for CVA and complex seizures. Within the past several months, patient has had extensive workups including CT head, CTA, and MRI with no specific findings. Patient presents today by herself with reported confusion, although patient is oriented to self and place. Patient denies any speech changes, weakness, paresthesias, paralysis, falls, or striking of her head. Patient reports that she is compliant with most of her medications, although she has not been taking her diabetic medications appropriately. Patient does arrive with elevated blood glucose. Patient also reports that she sometimes experiences similar symptoms to today when her blood glucose is elevated. Patient denies respiratory and cardiac complaints, as well as abdominal complaints. Patient does report increased urinary frequency. Patient denies any particular improving or worsening symptoms or interventions. Review of Systems Constitutional: denies: Fever Eyes: denies: Loss of vision Cardiac: denies: Chest pain / pressure Respiratory: denies: Dyspnea, Cough GI: denies: Abdominal Pain : reports: Dysuria, Frequency Musculoskeletal: denies: Back pain Neurologic: reports: Confused. denies: Generalized weakness, Focal weakness, Numbness, Difficulty speaking, Head injury PD PAST MEDICAL HISTORY - Past Medical History Cardiovascular: Hypertension, High cholesterol Respiratory: Asthma Neuro: Seizure disorder Endocrine/Autoimmune: Type 2 diabetes GI: GERD : Incontinence Psych: Depression Musculoskeletal: Chronic back pain - Past Surgical History Past Surgical History: Yes General: Cholecystectomy, Appendectomy Ortho: Knee replacement HEENT: Tonsil/Adenoidectomy - Present Medications Home Medications: Ambulatory Orders Medication Instructions Recorded Confirmed RX: Aspirin [Aspir 81] 81 mg PO QPM 07/22/14 07/31/18 RX: Duloxetine HCl [Cymbalta] 60 mg PO DAILY 07/22/14 07/31/18 RX: Gabapentin 1,200 mg PO BID 07/22/14 07/31/18 RX: Levalbuterol Tartrate [Xopenex 2 inh INH QID PRN 07/22/14 07/31/18 Hfa] RX: Losartan Potassium 50 mg PO DAILY 07/22/14 07/31/18 RX: Metformin HCl [Fortamet] 1,000 mg PO BID 07/22/14 07/31/18 RX: Omeprazole 20 mg PO DAILY 07/22/14 07/31/18 RX: Amitriptyline [Elavil] 50 mg QPM 11/08/15 07/31/18 RX: Cholecalciferol (Vitamin D3) 2,000 unit PO DAILY 07/31/18 07/31/18 [Vitamin D3] RX: Fluticasone/Salmeterol [Advair 1 inh IH BID 07/31/18 07/31/18 250-50 Diskus] RX: Insulin Aspart [NovoLOG] 0 unit SQ .SLIDING SCALE PRN 07/31/18 07/31/18 RX: Oxycodone HCl/Acetaminophen 1 tab PO .Q4-6H PRN MDD 3 tablets 07/31/18 07/31/18 [Oxycodone-Acetaminophen 10-325] RX: Promethazine HCl 25 mg PO Q8H PRN 07/31/18 07/31/18 RX: Fenofibrate [Tricor] 48 mg PO DAILY #30 tablet 08/03/18 RX: levETIRAcetam [Keppra] 500 mg PO BID #60 udc 08/03/18 - Allergies Allergies/Adverse Reactions: Allergies Allergy/AdvReac Type Severity Reaction Status Date / Time Penicillins Allergy Severe Anaphylaxis Verified 11/18/18 15:37 doxycycline Allergy Rash Verified 11/18/18 15:37 tamsulosin [From Flomax] Allergy Rash Verified 11/18/18 10:49 - Social History Does the pt smoke?: No Smoking Status: Former smoker Does the pt drink ETOH?: Yes Does the pt have substance abuse?: No - Immunizations Immunizations are current?: Yes - POLST Patient has POLST: No PD ED PE NORMAL - General General: No acute distress, Well developed/nourished, Other (Oriented to person and place) - HEENT HEENT: Atraumatic, PERRL, EOMI, Moist mucous membranes, Other (Gross visual acuity intact) - Cardiac Cardiac: RRR, No murmur - Respiratory Respiratory: No respiratory distress - Abdomen Abdomen: Normal bowel sounds, Soft, Non tender, Non distended - Derm Derm: Normal color, Warm and dry, No rash - Neuro Neuro: rock duster 2-12 intact, No motor deficit, No sensory deficit, Normal speech Eye Opening: Spontaneous Motor: Obeys Commands Verbal: Oriented (Oriented to person and place) GCS Score: 15 Results - Vitals Vitals: Vital Signs - 24 hr 11/18/18 10:45 Temperature 36.5 C Heart Rate 78 Respiratory 20 Rate Blood Pressure 173/80 H O2 Saturation 98 Oxygen O2 Source Room air - EKG (time done) 1058 Rate: Rate (enter#) (70) Rhythm: NSR QRS: Normal Ischemia: Normal ST segments - Labs Labs: Laboratory Tests 11/18/18 11/18/18 11/18/18 11:00 11:00 11:00 WBC 7.2 RBC 4.29 Hgb 12.6 Hct 38.4 MCV 89.6 MCH 29.4 MCHC 32.8 RDW 14.6 Plt Count 214 MPV 8.7 Neut # (Auto) 5.1 Lymph # (Auto) 1.4 L Bucks # (Auto) 0.4 Eos # (Auto) 0.3 Baso # (Auto) 0.1 Absolute Nucleated RBC 0.00 Nucleated RBC % 0.0 PT 13.5 H INR 1.2 APTT 29.5 Sodium 136 Potassium 4.0 Chloride 93 L Carbon Dioxide 30 Anion Gap 13.0 BUN 24 H Creatinine 1.1 H Estimated GFR (MDRD) 49 L Glucose 334 H Glycated Hemoglobin Estim Average Glucose Calcium 10.7 H Total Bilirubin 1.1 H AST 42 ALT 22 Alkaline Phosphatase 56 Total Protein 7.6 Albumin 3.9 Globulin 3.7 Albumin/Globulin Ratio 1.1 Lipase 24 Urine Color Urine Clarity Urine pH Ur Specific [place] Urine Protein Urine Glucose (UA) Urine Ketones Urine Occult Blood Urine Nitrite Urine Bilirubin Urine Urobilinogen Ur Leukocyte Esterase Urine RBC Urine WBC Ur Squamous Epith Cells Amorphous Sediment Urine Bacteria Ur Microscopic Review Urine Culture Comments 11/18/18 11/18/18 11:00 11:28 WBC RBC Hgb Hct MCV MCH MCHC RDW Plt Count MPV Neut # (Auto) Lymph # (Auto) Bucks # (Auto) Eos # (Auto) Baso # (Auto) Absolute Nucleated RBC Nucleated RBC % PT INR APTT Sodium Potassium Chloride Carbon Dioxide Anion Gap BUN Creatinine Estimated GFR (MDRD) Glucose Glycated Hemoglobin 7.8 H Estim Average Glucose 177 H Calcium Total Bilirubin AST ALT Alkaline Phosphatase Total Protein Albumin Globulin Albumin/Globulin Ratio Lipase Urine Color YELLOW Urine Clarity CLOUDY Urine pH 5.5 Ur Specific [place] >=1.030 H Urine Protein >=300 H Urine Glucose (UA) 500 H Urine Ketones 15 H Urine Occult Blood MODERATE H Urine Nitrite NEGATIVE Urine Bilirubin NEGATIVE Urine Urobilinogen 0.2 (NORMAL) Ur Leukocyte Esterase TRACE H Urine RBC 6-10 H Urine WBC 11-25 H Ur Squamous Epith Cells MANY Squamous H Amorphous Sediment Few Urine Bacteria Moderate H Ur Microscopic Review INDICATED Urine Culture Comments NOT INDICATED PD MEDICAL DECISION MAKING - ED course Complexity details: reviewed old records, considered differential, d/w patient, d/w family, d/w [facility] consultant ED course: Considered neurological etiologies such as stroke, encephalopathy, mass given that patient's reported confusion and history, particularly With similar symptoms in the past several months with negative neurological workup, but reported possible mass on previous evaluations.No evidence of trauma and patient denies such have lower suspicion for intracranial injury or bleed. Obtained CT head to further evaluate, which returned unremarkable. Given history, remainder of workup, and exam, do not feel she requires further stroke workup such as CTAs or MRI. No other neurological deficit found. EKG and lab work obtained which returned unremarkable with the exception of elevated blood glucose. Patient started on IV fluid, as well as given insulin and repeat blood glucose measurements decreased appropriately. Do feel that her elevated blood glucose could be contributing to her symptoms today. Additionally, urine sample obtained and returned with obvious infection. Do feel that UTI is also likely contributing to today's symptoms. Had multiple re-evaluations and discussions with patient and her family members. Family members do not feel comfortable taking patient home, particularly given her persistent confusion and inability to do her medications on her own. Feel that this is appropriate and contacted hospitalist, who agreed to admit. Patient and family members agreeable to this plan.Further treatments and interventions including antibiotics deferred to hospitalist. Departure - Departure Disposition: [facility] DC/Xfer Discharge Date/Time: 11/18/18 14:40
[2018-11-18] MEDS ORDERED: SODIUM CHLORIDE 0.9% 1,000 ML IV ONE (11:12)
[2018-11-18] MEDS ORDERED: INSULIN REGULAR HUMAN 100 UNIT/1 ML 10 ML MDV IVP STA (11:13)
[2018-11-18 11:20] LABS: BASOPHILS # (AUTO) 0.1 10^3/uL (0.0-0.1); BASOPHILS % (AUTO) 0.9 %; EOSINOPHILS # (AUTO) 0.3 10^3/uL (0.0-0.7); EOSINOPHILS % (AUTO) 3.7 %; HGB - HEMOGLOBIN 12.6 g/dL (12.0-16.0); LYMPHOCYTES # (AUTO) 1.4 10^3/uL (1.5-3.5); LYMPHOCYTES % (AUTO) 19.3 %; MEAN CORPUSCULAR HEMOGLOBIN 29.4 pg (27.0-31.0); MEAN CORPUSCULAR HGB CONC 32.8 g/dL (32.0-36.0); MEAN CORPUSCULAR VOLUME 89.6 fL (81.0-99.0); MEAN PLATELET VOLUME 8.7 fL (7.9-10.8); MONOCYTES # (AUTO) 0.4 10^3/uL (0.0-1.0); MONOCYTES % (AUTO) 5.7 %; NEUTROPHILS # (AUTO) 5.1 10^3/uL (1.5-6.6); NEUTROPHILS % (AUTO) 70.4 %; PLT - PLATELET COUNT 214 10^3/uL (130-450); RED BLOOD COUNT 4.29 10^6/uL (4.20-5.40); RED CELL DISTRIBUTION WIDTH 14.6 % (12.0-15.0); WHITE BLOOD COUNT 7.2 x10^3/uL (4.8-10.8)
[2018-11-18 11:27] LABS: INR 1.2 (0.8-1.2); PT - PROTHROMBIN TIME 13.5 secs (9.9-12.6)
[2018-11-18 11:32] LABS: ALBUMIN 3.9 g/dL (3.2-5.5); ALBUMIN/GLOBULIN RATIO 1.1 (1.0-2.2); BILIRUBIN,TOTAL 1.1 mg/dL (0.2-1.0); CALCIUM 10.7 mg/dL (8.5-10.3); CREATININE 1.1 mg/dL (0.4-1.0); TOTAL PROTEIN 7.6 g/dL (6.7-8.2)
[2018-11-18 11:34] LABS: PARTIAL THROMBOPLASTIN TIME 29.5 secs (24.9-33.3)
[2018-11-18 11:36] LABS: GLUCOSE, URINE (UA) 500 mg/dL (NEGATIVE); KETONES,URINE (UA) 15 mg/dL (NEGATIVE); LEUKOCYTE ESTERASE, URINE TRACE (NEGATIVE); NITRITE,URINE NEGATIVE (NEGATIVE); OCCULT BLOOD,URINE MODERATE (NEGATIVE); PH,URINE 5.5 PH (5.0-7.5); PROTEIN,URINE >=300 mg/dL (NEGATIVE); UROBILINOGEN,URINE 0.2 (NORMAL) E.U./dL (NORMAL)
[2018-11-18 11:38] LABS: CLARITY,URINE CLOUDY (CLEAR)
[2018-11-18 11:46] LABS: AMORPHOUS SEDIMENT,UR Few /LPF; BACTERIA,URINE Moderate /HPF (None Seen); BILIRUBIN,URINE NEGATIVE (NEGATIVE); ICTOTEST,URINE NEGATIVE; SQUAMOUS EPITHELIAL CELL,UR MANY Squamous (<= Few)
--- NOTE | 2018-11-18 11:54 | CT Report ---
Reason: confusion of unknown duration, history of confusio Procedure Date: 11/18/2018 Accession Number: [id number] / [id number] Procedure: CT - HEAD WO CPT Code: FULL RESULT: EXAM: CT HEAD EXAM DATE: 11/18/2018 11:34 AM. CLINICAL HISTORY: Confusion. COMPARISON: 07/30/2018. TECHNIQUE: Multiaxial CT images were obtained from the foramen magnum to the vertex. Reformats: Sagittal and coronal. IV contrast: None. In accordance with CT protocol optimization, one or more of the following dose reduction techniques were utilized for this exam: automated exposure control, adjustment of mA and/or KV based on patient size, or use of iterative reconstructive technique. FINDINGS: Parenchyma: No intraparenchymal hemorrhage. No evidence of mass, midline shift, or CT findings of infarction. Escobar-white differentiation is distinct. Extraaxial Spaces: Normal for age. No subdural or epidural collections identified. Ventricles: Normal in size and position. Sinuses and Orbits: Imaged paranasal sinuses, orbits, and mastoids show no significant abnormality. Bones: No evidence of fracture or calvarial defect. Other: None. IMPRESSION: No acute intracranial abnormality. RADIA
[2018-11-18] MEDS ORDERED: ONDANSETRON 4 MG/2 ML VIAL IVP PRN (13:37)
[2018-11-18 14:10] LABS: HEMOGLOBIN A1C 0.87 g/dL; HEMOGLOBIN A1C % 7.8 % (4.6-6.2)
--- NOTE | 2018-11-18 14:26 | HISTORY & PHYSICAL EXAMINATION ---
Chief Complaint - Chief Complaint Chief Complaint: altered mental status History of Present Illness - Admitted From Admitted From:: [facility] ER - History Obtained From Records Reviewed: Yes History obtained from: Patient (although limited) and ER record - History of Present Illness HPI Comment/Other: History is difficult to obtain from patient as she often has word finding difficulty during interview. Patient presents alone. She is a 73 year old female with a PMH significant for nonspecified brain mass and previous workups for CVA and complex seizures. She tells me she is seeing a neurologist outpatient in [place] and has an upcoming EEG on December 14. Previous imaging of CT head, CTA, and MRI without specific findings. Patient presented to [facility] ER alone today by EMS using her [employer]. She presents with altered mental status. She reports being told by her [id number] that she was slurring her words and had memory difficulties. In the ER, she is alert to person and place. Work-up in the ER revealed WBC of 7.2, moderate bacteruria with trace leukocyte esterase, and ketones. She is afebrile. Her blood glucose was 334 -- she was given IVF and regular insulin. Her physical exam was non-focal. CT head negative for acute intracranial process. Patient lives at home with her brother and [id number]. She reports caring for herself and being in charge or her own medications. She reports not taking her medications as prescribed the past couple of days. She has not been checking her blood sugars. She states that she takes Novolin at home. She reports dysuria, frequency, and scant amount of blood in her urine. Her last fall at home was a couple of weeks ago. She reports intermittent chest discomfort that she describes as sharp and will wake her up in her sleep, currently denies CP or discomfort. Denies SOB. Reports chronic diarrhea. Of note, pharmacy unable to complete medication reconciliation due to AMS and [facility] reports no medications have been refilled since July. At this patient, given altered mental status, patient will be defaulted to a full code. History - Past Medical History Cardiovascular: reports: Hypertension, High cholesterol Respiratory: reports: Asthma Neuro: reports: Seizure disorder Endocrine/Autoimmune: reports: Type 2 diabetes GI: reports: GERD : reports: Incontinence Psych: reports: Depression Musculoskeletal: reports: Chronic back pain MRSA Hx?: No - Past Surgical History General: reports: Cholecystectomy, Appendectomy Ortho: reports: Knee replacement HEENT: reports: Tonsil/Adenoidectomy - Family & Social History Living arrangement: At home Living Situation: With family Social History Notes: Patient is a retired nurse. She does not drive. She lives with her brother and [id number]. She reports that she is able to care for herself and self-administers her medications. - Substance History Use: Uses substance without health or social issues: NONE - POLST Patient has POLST: No Meds/Allgy - Home Medications Home Medications: Ambulatory Orders Medication Instructions Recorded Confirmed Oxycodone HCl/Acetaminophen 1 tab PO Q6H PRN 11/18/18 11/18/18 [Oxycodone-Acetaminophen 10-325] levETIRAcetam [Levetiracetam] 500 mg PO BID 11/18/18 11/18/18 - Allergies Allergies/Adverse Reactions: Allergies Allergy/AdvReac Type Severity Reaction Status Date / Time Penicillins Allergy Severe Anaphylaxis Verified 11/18/18 15:37 doxycycline Allergy Rash Verified 11/18/18 15:37 tamsulosin [From Flomax] Allergy Rash Verified 11/18/18 10:49 Review of Systems - Constitutional Constitutional: reports: Fatigue, Fever, Poor appetite - Eyes Eyes: reports: Corrective lenses (reports received new prescription recently) - Ears, Nose & Throat Ears, Nose & Throat: reports: Dentures (uppers) - Cardiovascular Cariovascular: reports: Other (chest discomfort that she describes as sharp, at times that will wake her up at night). denies: Palpitations, Chest pain, Syncope - Respiratory Respiratory: reports: Cough, Sputum production. denies: Orthopnea, SOB at rest, SOB with exertion - Gastrointestinal Gastrointestinal: reports: Abdominal pain, Diarrhea, Nausea. denies: Vomiting - Genitourinary Genitourinary: reports: Dysuria, Frequency, Urgency, Incontinence. denies: Hematuria - Musculoskeletal Musculoskeletal: reports: Back pain - Neurological Neurological: reports: Other (confused, with difficulty word finding. Recent fall at home, couple weeks ago per patient). denies: General weakness, Headache Prior Level of Functionality: Patient reports using a walker at home, when she is unsteady, she cannot tell me how often she uses it Exam - Vital Signs Reviewed Vital Signs: Yes Vital Signs: Vital Signs x48h Temp Pulse Resp BP Pulse Ox 11/18/18 13:56 77 12 169/79 H 100 11/18/18 10:45 36.5 C 78 20 173/80 H 98 - Physical Exam General Appearance: positive: No acute distress, Alert Eyes Bilateral: positive: Normal inspection, PERRL, EOMI ENT: positive: ENT inspection nml, No signs of dehydration Neck: positive: Nml inspection, Trachea midline Respiratory: positive: Chest non-tender, No respiratory distress, Breath sounds nml Cardiovascular: positive: Regular rate & rhythm, No murmur, No gallop Peripheral Pulses: positive: 2+ Abdomen: positive: No organomegaly, Nml bowel sounds, Tenderness (mild suprapubic tenderness). negative: Guarding, Rebound Back: positive: CVA tenderness (R), CVA tenderness (L) Skin: positive: Color nml, Warm, Dry. negative: Diaphoresis Extremities: positive: Non-tender, Full ROM, Nml appearance, No pedal edema Neurologic/Psychiatric: positive: Sensation nml, Mood/affect nml, Other (oriented to self and place. She has confusion with frequent word finding difficulties. Her speech is not garbled. Gait not checked. Unable to perform [id number] testing - she closed her eyes, put her finger on her nose and did not move it to touch my finger. Otherwise, exam is non-focal. Symmetric strength and was able to follow all other commands appropriately.). negative: Facial droop Conclusion/Plan - Problem List (1) Altered mental status Conclusion/Plan: Patient presents with altered mental status. Per report, patient previously able to function independently without difficulty. She presented Jul 2018, with the same symptoms. Work-up negative. CT head completed today negative for acute abnormality. Patient being worked up outpatient with neurologist and reports that she has an EEG coming up in December. She does not have any weakness on examination, although she is unable to complete [id number] test accurately. She does report a history of falls. Her altered mental status could be confounded by her elevated blood glucose and urinary tract infection. 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 Patient reports outpatient follow-up with neurology, to have an EEG in December. Plan: - continue keppra 500 mg PO BID (3) Diabetes mellitus, insulin dependent (IDDM), uncontrolled Conclusion/Plan: Patient with elevated blood glucose in the 300s. Ketones are in her urine. Anion gap 13. She received IV fluid and regular insulin in the ER. She reports not taking her medication for the last couple of days. Blood sugar at 4pm 229. Hgb A1c 7.8. Discharge medication list from Jul 2018 listes patient taking metformin and SSI. Patient tells me that she also takes long acting insulin Novolin juarez use 'she cannot afford' to take the brand name. We do not currently have an accurate medication list for the patient. Plan: - hold metformin - ACHS blood sugar checks - moderate high SSI - attempt to obtain accurate medication list Qualifiers: Glycemic state: with hyperglycemia Qualified Code(s): E10.65 - Type 1 diabetes mellitus with hyperglycemia (4) UTI (urinary tract infection) Conclusion/Plan: Patient presents with dysuria, hematuria, frequency and suprapubic tenderness. Urinalysis with bacteruria, blood, WBC and trace leukoesterase. She reports a severe anaphylactic reaction to penicillins. Plan: - obtain blood cultures - start on aztreonam - monitor temperature - follow-up CBC Qualifiers: Urinary tract infection type: acute cystitis Hematuria presence: without hematuria Qualified Code(s): N30.00 - Acute cystitis without hematuria (5) Depression Conclusion/Plan: Patient on elavil, cymbalta and hydroxyzine PRN per discharge summary in 2018. We currently do not have patient's up to date medication list. Plan: - will attempt to obtain patient's current medication list Qualifiers: Depression Type: unspecified Qualified Code(s): F32.9 - Major depressive disorder, single episode, unspecified (6) Hypertriglyceridemia Conclusion/Plan: Patient on fenofibrate per 2018 discharge summary. Unsure if patient is still on this medication Plan: - obtain lipid panel in the morning - attempt to get accurate medication list (7) Hypertension Conclusion/Plan: Patient on losartan at home. Patient's blood pressure is elevated. Her kidney function is at her baseline Plan: - obtain accurate medication list - PRN hydralazine for sBP >160 Qualifiers: Hypertension type: essential hypertension Qualified Code(s): I10 - Essential (primary) hypertension (8) Chronic kidney disease, stage 3 Conclusion/Plan: Patient's kidney function is at her baseline. (9) Chronic back pain Conclusion/Plan: Patient with chronic back pain on oxycodone at home. Plan: - will continue home oxycodone. - PT evaluated Qualifiers: Back pain location: back pain in unspecified location Back pain laterality: unspecified Qualified Code(s): M54.9 - Dorsalgia, unspecified; G89.29 - Other chronic pain - Lab Results Fish Bones: 11/18/18 11:00 11/18/18 11:00 - Diagnostic Imaging Results Diagnostic Imaging Results: positive: Final report reviewed Diagnostic Imaging Results Comments: Head CT w/o contrast 11/18/2018: No acute intracranial abnormality Core Measures - Anticipated LOS I expect patient to be DC'd or transferred within 96 hours.: Yes - DVT/VTE - Prophylaxis VTE/DVT Device ordered at admit?: Yes
[2018-11-18] MEDS: AZTREONAM 1 GM in SODIUM CHLORIDE 0.9% MINIBAG 100 ML IV SCH (16:59)
[2018-11-18] MEDS: INSULIN ASPART 300 UNIT/3 ML PEN SUBQ SCH ×2 (17:03→21:43)
[2018-11-18] MEDS: SODIUM CHLORIDE FLUSH 0.9% 10 ML SYRINGE IVP SCH (17:04)
[2018-11-18] MEDS ORDERED: hydrALAZINE INJ 20 MG/ML VIAL IVP PRN (17:21)
[2018-11-18] MEDS: oxyCODONE 5 MG TABLET PO PRN (18:06)
[2018-11-18] MEDS: GABAPENTIN 300 MG CAPSULE PO SCH (20:38)
[2018-11-18] MEDS: levETIRAcetam 500 MG/5 ML UDC PO SCH (20:38)
[2018-11-18] MEDS: HEPARIN 5,000 UNIT/ML VIAL SUBQ SCH (21:43)
[2018-11-18] MEDS: ACETAMINOPHEN 325 MG TABLET PO PRN (23:02)
[2018-11-19] MEDS: oxyCODONE 5 MG TABLET PO PRN ×3 (00:27→18:23)
[2018-11-19] MEDS: AZTREONAM 1 GM in SODIUM CHLORIDE 0.9% MINIBAG 100 ML IV SCH ×3 (00:30→16:25)
[2018-11-19] MEDS: SODIUM CHLORIDE FLUSH 0.9% 10 ML SYRINGE IVP SCH ×3 (00:39→16:25)
[2018-11-19] MEDS: SODIUM CHLORIDE FLUSH 0.9% 10 ML SYRINGE IVP PRN ×2 (01:33→08:24)
[2018-11-19 05:26] LABS: BASOPHILS % (AUTO) 0.7 %; EOSINOPHILS # (AUTO) 0.4 10^3/uL (0.0-0.7); EOSINOPHILS % (AUTO) 5.5 %; HGB - HEMOGLOBIN 11.2 g/dL (12.0-16.0); LYMPHOCYTES # (AUTO) 2.6 10^3/uL (1.5-3.5); LYMPHOCYTES % (AUTO) 38.6 %; MEAN CORPUSCULAR HEMOGLOBIN 29.3 pg (27.0-31.0); MEAN CORPUSCULAR HGB CONC 32.5 g/dL (32.0-36.0); MEAN CORPUSCULAR VOLUME 90.2 fL (81.0-99.0); MEAN PLATELET VOLUME 8.4 fL (7.9-10.8); MONOCYTES # (AUTO) 0.5 10^3/uL (0.0-1.0); MONOCYTES % (AUTO) 7.1 %; NEUTROPHILS # (AUTO) 3.3 10^3/uL (1.5-6.6); NEUTROPHILS % (AUTO) 48.1 %; PLT - PLATELET COUNT 209 10^3/uL (130-450); RED BLOOD COUNT 3.83 10^6/uL (4.20-5.40); RED CELL DISTRIBUTION WIDTH 14.6 % (12.0-15.0); WHITE BLOOD COUNT 6.8 x10^3/uL (4.8-10.8)
[2018-11-19 05:37] LABS: ALBUMIN 3.5 g/dL (3.2-5.5); ALBUMIN/GLOBULIN RATIO 1.1 (1.0-2.2); BILIRUBIN,TOTAL 0.9 mg/dL (0.2-1.0); CALCIUM 9.3 mg/dL (8.5-10.3); CREATININE 0.9 mg/dL (0.4-1.0); TOTAL PROTEIN 6.6 g/dL (6.7-8.2)
[2018-11-19 05:44] LABS: CHOL/HDL RATIO 7.4 (<4.4); CHOLESTEROL 229 mg/dL; HDL CHOLESTEROL 31 mg/dL
[2018-11-19 06:01] LABS: LDL CHOLESTEROL,DIRECT 62 mg/dL
[2018-11-19] MEDS ORDERED: POTASSIUM CHLOR 10 MEQ/100 ML 10 MEQ/100 ML BAG IV SCH (07:00)
[2018-11-19] MEDS ORDERED: POTASSIUM CHLORIDE 20 MEQ/15 ML UDC PO STA (07:04)
--- NOTE | 2018-11-19 07:47 | PROVIDER PROGRESS NOTE ---
Subjective - Prog Note Date Prog Note Date: 11/19/18 Prog Note Time: 08:30 - Subjective Subjective: Was able to gather more information from patient's brother and [id number] yesterday Today, patient is sitting up in the chair Reports that she got some sleep last night Blood sugars remain in low 200s, unsure patient's outpatient insulin dosing K 3.4 Was able to get up to the bedside commode with 1-2 person assist Unable to coordinate picking up the utensil and putting the food in her mouth Her mentation as improved from yesterday, still with some word finding difficulties Reports she has had issues with tremors Current Medications - Current Medications Current Medications: Acetaminophen (Tylenol) 650 mg PO Q4HR PRN PRN Reason: Pain 1 to 4 Last Admin: 11/18/18 23:02 Dose: 650 mg Fenofibrate (Tricor) 48 mg PO DAILY [facility] Gabapentin (Neurontin) 600 mg PO BID [facility] Last Admin: 11/19/18 08:23 Dose: 600 mg Heparin Sodium (Porcine) () 5,000 unit SUBQ BID [facility] Last Admin: 11/19/18 08:24 Dose: 5,000 unit Hydralazine HCl (Apresoline Inj) 5 mg IVP Q8H PRN PRN Reason: NEEDED PER PROVIDER ORDERS Last Admin: 11/18/18 22:04 Dose: 5 mg Aztreonam 1 gm/ Sodium (Chloride) 100 mls @ 200 mls/hr IV Q8H [facility] Last Admin: 11/19/18 08:23 Dose: 200 mls/hr Insulin Aspart (Novolog) 2 - 10 unit SUBQ 0800,1200,1700,2100 [facility]; Protocol Last Admin: 11/19/18 08:22 Dose: 8 unit Levetiracetam (Keppra) 500 mg PO BID [facility] Last Admin: 11/19/18 08:23 Dose: 500 mg Ondansetron HCl (Zofran Inj) 4 mg IVP Q6HR PRN PRN Reason: Nausea / Vomiting Oxycodone HCl (Roxicodone) 10 mg PO TID PRN PRN Reason: PAIN Last Admin: 11/19/18 08:24 Dose: 10 mg Polyethylene Glycol (Miralax) 17 gm PO DAILY [facility] Last Admin: 11/19/18 08:23 Dose: 17 gm Sodium Chloride (Normal Saline Flush 0.9%) 10 ml IVP PRN PRN PRN Reason: NEEDED PER PROVIDER ORDERS Last Admin: 11/19/18 08:24 Dose: 10 ml Sodium Chloride (Normal Saline Flush 0.9%) 10 ml IVP 0100,0900,1700 [facility] Last Admin: 11/19/18 08:24 Dose: 10 ml Objective - Vital Signs/Intake & Output Reviewed Vital Signs: Yes Vital Signs: Vital Signs x48h Temp Pulse Resp BP Pulse Ox 11/19/18 07:36 36.8 C 82 20 148/59 H 95 11/19/18 05:20 36.6 C 77 18 156/69 H 96 11/19/18 01:26 78 142/57 H 11/19/18 00:53 71 164/59 H 11/18/18 23:55 36.9 C 80 20 168/69 H 99 Intake & Output: Intake & Output 11/16/18 11/17/18 11/18/18 11/19/18 23:59 23:59 23:59 23:59 Intake Total 1640 300 Output Total 50 Balance 1640 250 - Objective General Appearance: positive: No acute distress, Alert, Other (sitting up in the chair) Eyes Bilateral: positive: Normal inspection, PERRL, EOMI ENT: positive: ENT inspection nml, Pharynx nml, No signs of dehydration Neck: positive: Nml inspection, Trachea midline Respiratory: positive: Chest non-tender, No respiratory distress, Breath sounds nml Cardiovascular: positive: Regular rate & rhythm, No murmur, No gallop Peripheral Pulses: 2+ Dorsalis pedis (R), 2+ Dorsalis pedis (L) Abdomen: positive: Non-tender, No organomegaly, Nml bowel sounds, No distention Back: positive: CVA tenderness (R), CVA tenderness (L) Skin: positive: Warm, Dry Extremities: positive: Non-tender, Full ROM, Nml appearance, No pedal edema Neurologic/Psychiatric: positive: Other (Patient is oriented to person and situation. She does not remember that she is at the hospital and know that it is 20__, but unable to state the exact year. Her word finding abilities have decreased and she is able to effectively communicate and answer questions related to her health history. Her [id number]-jo-[id number] test is wnl today. She is unable to find the fork on her tray, and therefore, unable to pick it up and take a bite of her food on her own.) - Lab Results Fish Bones: 11/19/18 05:09 11/19/18 05:09 Other Labs: Lab Results x24hrs 11/19/18 11/19/18 11/19/18 Range/Units 05:09 05:09 05:09 WBC 6.8 (4.8-10.8) x10^3/uL RBC 3.83 L (4.20-5.40) 10^6/uL Hgb 11.2 L (12.0-16.0) g/dL Hct 34.5 L (37.0-47.0) % MCV 90.2 (81.0-99.0) fL MCH 29.3 (27.0-31.0) pg MCHC 32.5 (32.0-36.0) g/dL RDW 14.6 (12.0-15.0) % Plt Count 209 (130-450) 10^3/uL MPV 8.4 (7.9-10.8) fL Neut # (Auto) 3.3 (1.5-6.6) 10^3/uL Lymph # (Auto) 2.6 (1.5-3.5) 10^3/uL [place] # (Auto) 0.5 (0.0-1.0) 10^3/uL Eos # (Auto) 0.4 (0.0-0.7) 10^3/uL Baso # (Auto) 0.0 (0.0-0.1) 10^3/uL Absolute Nucleated RBC 0.01 x10^3/uL Nucleated RBC % 0.1 /100WBC PT (9.9-12.6) secs INR (0.8-1.2) APTT (24.9-33.3) secs Sodium 134 L (135-145) mmol/L Potassium 3.4 L (3.5-5.0) mmol/L Chloride 98 L (101-111) mmol/L Carbon Dioxide 28 (21-32) mmol/L Anion Gap 8.0 (6-13) BUN 20 (6-20) mg/dL Creatinine 0.9 (0.4-1.0) mg/dL Estimated GFR (MDRD) 62 L (>89) Glucose 224 H (70-100) mg/dL Glycated Hemoglobin (4.6-6.2) % Estim Average Glucose (70-100) Calcium 9.3 (8.5-10.3) mg/dL Total Bilirubin 0.9 (0.2-1.0) mg/dL AST 30 (10-42) IU/L ALT 20 (10-60) IU/L Alkaline Phosphatase 48 (42-121) IU/L Total Protein 6.6 L (6.7-8.2) g/dL Albumin 3.5 (3.2-5.5) g/dL Globulin 3.1 (2.1-4.2) g/dL Albumin/Globulin Ratio 1.1 (1.0-2.2) Triglycerides 739 H ( - 149) mg/dL Cholesterol 229 H ( - 199) mg/dL LDL Cholesterol Direct 62 ( - 129) mg/dL LDL Cholesterol, Calc Not Reportable VLDL Cholesterol Not Reportable HDL Cholesterol 31 L (60 - ) mg/dL LDL/HDL Ratio Not Reportable dLDL/HDL Ratio 2.0 (<4.4) Cholesterol/HDL Ratio 7.4 (<4.4) Lipase (22-51) U/L Urine Color Urine Clarity (CLEAR) Urine pH (5.0-7.5) PH Ur Specific [place] (1.002-1.030) Urine Protein (NEGATIVE) mg/dL Urine Glucose (UA) (NEGATIVE) mg/dL Urine Ketones (NEGATIVE) mg/dL Urine Occult Blood (NEGATIVE) Urine Nitrite (NEGATIVE) Urine Bilirubin (NEGATIVE) Urine Urobilinogen (NORMAL) E.U./dL Ur Leukocyte Esterase (NEGATIVE) Urine RBC (0-5) /HPF Urine WBC (0-5) /HPF Ur Squamous Epith Cells (<= Few) Amorphous Sediment /LPF Urine Bacteria (None Seen) /HPF Ur Microscopic Review Urine Culture Comments 11/18/18 11/18/18 11/18/18 Range/Units 11:28 11:00 11:00 WBC (4.8-10.8) x10^3/uL RBC (4.20-5.40) 10^6/uL Hgb (12.0-16.0) g/dL Hct (37.0-47.0) % MCV (81.0-99.0) fL MCH (27.0-31.0) pg MCHC (32.0-36.0) g/dL RDW (12.0-15.0) % Plt Count (130-450) 10^3/uL MPV (7.9-10.8) fL Neut # (Auto) (1.5-6.6) 10^3/uL Lymph # (Auto) (1.5-3.5) 10^3/uL [place] # (Auto) (0.0-1.0) 10^3/uL Eos # (Auto) (0.0-0.7) 10^3/uL Baso # (Auto) (0.0-0.1) 10^3/uL Absolute Nucleated RBC x10^3/uL Nucleated RBC % /100WBC PT (9.9-12.6) secs INR (0.8-1.2) APTT (24.9-33.3) secs Sodium 136 (135-145) mmol/L Potassium 4.0 (3.5-5.0) mmol/L Chloride 93 L (101-111) mmol/L Carbon Dioxide 30 (21-32) mmol/L Anion Gap 13.0 (6-13) BUN 24 H (6-20) mg/dL Creatinine 1.1 H (0.4-1.0) mg/dL Estimated GFR (MDRD) 49 L (>89) Glucose 334 H (70-100) mg/dL Glycated Hemoglobin 7.8 H (4.6-6.2) % Estim Average Glucose 177 H (70-100) Calcium 10.7 H (8.5-10.3) mg/dL Total Bilirubin 1.1 H (0.2-1.0) mg/dL AST 42 (10-42) IU/L ALT 22 (10-60) IU/L Alkaline Phosphatase 56 (42-121) IU/L Total Protein 7.6 (6.7-8.2) g/dL Albumin 3.9 (3.2-5.5) g/dL Globulin 3.7 (2.1-4.2) g/dL Albumin/Globulin Ratio 1.1 (1.0-2.2) Triglycerides ( - 149) mg/dL Cholesterol ( - 199) mg/dL LDL Cholesterol Direct ( - 129) mg/dL LDL Cholesterol, Calc VLDL Cholesterol HDL Cholesterol (60 - ) mg/dL LDL/HDL Ratio dLDL/HDL Ratio (<4.4) Cholesterol/HDL Ratio (<4.4) Lipase 24 (22-51) U/L Urine Color YELLOW Urine Clarity CLOUDY (CLEAR) Urine pH 5.5 (5.0-7.5) PH Ur Specific [place] >=1.030 H (1.002-1.030) Urine Protein >=300 H (NEGATIVE) mg/dL Urine Glucose (UA) 500 H (NEGATIVE) mg/dL Urine Ketones 15 H (NEGATIVE) mg/dL Urine Occult Blood MODERATE H (NEGATIVE) Urine Nitrite NEGATIVE (NEGATIVE) Urine Bilirubin NEGATIVE (NEGATIVE) Urine Urobilinogen 0.2 (NORMAL) (NORMAL) E.U./dL Ur Leukocyte Esterase TRACE H (NEGATIVE) Urine RBC 6-10 H (0-5) /HPF Urine WBC 11-25 H (0-5) /HPF Ur Squamous Epith Cells MANY Squamous H (<= Few) Amorphous Sediment Few /LPF Urine Bacteria Moderate H (None Seen) /HPF Ur Microscopic Review INDICATED Urine Culture Comments NOT INDICATED 11/18/18 11/18/18 Range/Units 11:00 11:00 WBC 7.2 (4.8-10.8) x10^3/uL RBC 4.29 (4.20-5.40) 10^6/uL Hgb 12.6 (12.0-16.0) g/dL Hct 38.4 (37.0-47.0) % MCV 89.6 (81.0-99.0) fL MCH 29.4 (27.0-31.0) pg MCHC 32.8 (32.0-36.0) g/dL RDW 14.6 (12.0-15.0) % Plt Count 214 (130-450) 10^3/uL MPV 8.7 (7.9-10.8) fL Neut # (Auto) 5.1 (1.5-6.6) 10^3/uL Lymph # (Auto) 1.4 L (1.5-3.5) 10^3/uL [place] # (Auto) 0.4 (0.0-1.0) 10^3/uL Eos # (Auto) 0.3 (0.0-0.7) 10^3/uL Baso # (Auto) 0.1 (0.0-0.1) 10^3/uL Absolute Nucleated RBC 0.00 x10^3/uL Nucleated RBC % 0.0 /100WBC PT 13.5 H (9.9-12.6) secs INR 1.2 (0.8-1.2) APTT 29.5 (24.9-33.3) secs Sodium (135-145) mmol/L Potassium (3.5-5.0) mmol/L Chloride (101-111) mmol/L Carbon Dioxide (21-32) mmol/L Anion Gap (6-13) BUN (6-20) mg/dL Creatinine (0.4-1.0) mg/dL Estimated GFR (MDRD) (>89) Glucose (70-100) mg/dL Glycated Hemoglobin (4.6-6.2) % Estim Average Glucose (70-100) Calcium (8.5-10.3) mg/dL Total Bilirubin (0.2-1.0) mg/dL AST (10-42) IU/L ALT (10-60) IU/L Alkaline Phosphatase (42-121) IU/L Total Protein (6.7-8.2) g/dL Albumin (3.2-5.5) g/dL Globulin (2.1-4.2) g/dL Albumin/Globulin Ratio (1.0-2.2) Triglycerides ( - 149) mg/dL Cholesterol ( - 199) mg/dL LDL Cholesterol Direct ( - 129) mg/dL LDL Cholesterol, Calc VLDL Cholesterol HDL Cholesterol (60 - ) mg/dL LDL/HDL Ratio dLDL/HDL Ratio (<4.4) Cholesterol/HDL Ratio (<4.4) Lipase (22-51) U/L Urine Color Urine Clarity (CLEAR) Urine pH (5.0-7.5) PH Ur Specific [place] (1.002-1.030) Urine Protein (NEGATIVE) mg/dL Urine Glucose (UA) (NEGATIVE) mg/dL Urine Ketones (NEGATIVE) mg/dL Urine Occult Blood (NEGATIVE) Urine Nitrite (NEGATIVE) Urine Bilirubin (NEGATIVE) Urine Urobilinogen (NORMAL) E.U./dL Ur Leukocyte Esterase (NEGATIVE) Urine RBC (0-5) /HPF Urine WBC (0-5) /HPF Ur Squamous Epith Cells (<= Few) Amorphous Sediment /LPF Urine Bacteria (None Seen) /HPF Ur Microscopic Review Urine Culture Comments Assessment/Plan - Problem List (1) Altered mental status Impression: Patient presented with altered mental status. Per report, patient previously able to function independently without difficulty. She presented Jul 2018, with the same symptoms. Work-up negative. CT head completed 11/18/2018 negative for acute abnormality. Patient being worked up outpatient with neurologist and reports that she has an EEG coming up in December. She did have any weakness on examination, but she was unable to complete [id number] test accurately. She does report a history of falls. Her brother and [id number] were present at the bedside late afternoon yesterday and were able to give more of the patient's history. On 11/17/2018, the patient was a little confused, but it would come and go. She would stumble over words at times. The [id number]-[id number] attributed it to the patient's lack of sleep over the previous few days. The patient normally stays awake at night and sleeps during the day. On the day of presentation to the ER, the dhgelv-[id number] reports the patient walked up to her with her insulin needle in hand saying 'i dont know'. For this, [facility] was alerted and the patient was brought to the ER. The [id number]-jd-[id number] states that between the incident in July and the start of symptoms on 11/17/2018, patient was without confusion and able to care for herself without difficulty. Today, the patient's mentation has improved from yesterday. She is able to complete vymqup-[id number] testing. She has less word finding difficulty and is able to answer more of her health history. 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 Patient reports outpatient follow-up with neurology, to have an EEG in December. Plan: - continue keppra 500 mg PO BID (3) Diabetes mellitus, insulin dependent (IDDM), uncontrolled Impression: Patient with elevated blood glucose in the 300s upon admission. Ketones are in her urine. Anion gap 13. She received IV fluid and regular insulin in the ER. She reports not taking her medication for the last couple of days. Hgb A1c 7.8. Discharge medication list from Jul 2018 lists patient taking metformin and SSI. Patient tells me that she also takes long acting insulin Novolin because 'she cannot afford' to take the brand name. She may be obtaining N and R over the counter as these insulins are not found anywhere in her medical records. Blood sugar this morning is 293. Plan: - will start NPH 5 units BID - hold metformin - ACHS blood sugar checks - moderate high SSI Qualifiers: Glycemic state: with hyperglycemia Qualified Code(s): E10.65 - Type 1 diabetes mellitus with hyperglycemia (4) UTI (urinary tract infection) Impression: Patient presents with dysuria, hematuria, frequency and suprapubic tenderness. Urinalysis with bacteruria, blood, WBC and trace leukoesterase. She reports a severe anaphylactic reaction to penicillins. Blood cultures have been obtained. WBC wnl and she is afebrile. Patient's [id number]-mff patient with frequent urinary tract infections, most recently treated 3 weeks ago, unsure what antibiotics were given. Plan: - continue aztreonam - monitor temperature - follow-up CBC Qualifiers: Urinary tract infection type: acute cystitis Hematuria presence: without hematuria Qualified Code(s): N30.00 - Acute cystitis without hematuria (5) Depression Impression: Patient on elavil, cymbalta and hydroxyzine PRN per discharge summary in 2018. Unsure if patient is taking any of these medications as there are no insurance refill records. Plan: - monitor, will ask family to bring in patient's medication bottles Qualifiers: Depression Type: unspecified Qualified Code(s): F32.9 - Major depressive disorder, single episode, unspecified (6) Hypertriglyceridemia Impression: Patient on fenofibrate per 2018 discharge summary. Unsure if patient is still on this medication. Triglycerdise 739. Patient thinks this may be familial as her triglycerides have been >9000 at one time. Plan: - fenofibrate at 48 mg daily for patient's renal function (7) Hypertension Impression: Patient on losartan at home. Patient's blood pressure is elevated. Her kidney function is at her baseline. Plan: - will ask family to bring in patient's home medications today - PRN hydralazine for sBP >160 Qualifiers: Hypertension type: essential hypertension Qualified Code(s): I10 - Essential (primary) hypertension (8) Hypokalemia Impression: K 3.4 Plan: - replace with 40 mEq IV potassium - follow-up potassium level tomorrow (9) Chronic kidney disease, stage 3 Impression: Patient's kidney function is at her baseline. Plan: - monitor (10) Chronic back pain Impression: Patient with chronic back pain on oxycodone at home. Plan: - will continue home oxycodone. - PT order placed Qualifiers: Back pain location: back pain in unspecified location Back pain laterality: unspecified Qualified Code(s): M54.9 - Dorsalgia, unspecified; G89.29 - Other chronic pain
[2018-11-19] MEDS: INSULIN ASPART 300 UNIT/3 ML PEN SUBQ SCH ×4 (08:22→21:50)
[2018-11-19] MEDS: GABAPENTIN 300 MG CAPSULE PO SCH ×2 (08:23→21:49)
[2018-11-19] MEDS: POLYETHYLENE GLYCOL 3350 17 GM PACKET PO SCH ×2 (08:23→09:00)
[2018-11-19] MEDS: levETIRAcetam 500 MG/5 ML UDC PO SCH ×2 (08:23→21:49)
[2018-11-19] MEDS: HEPARIN 5,000 UNIT/ML VIAL SUBQ SCH ×2 (08:24→21:50)
[2018-11-19] MEDS: INSULIN NPH HUMAN 100 UNIT/1 ML 10 ML MDV SUBQ SCH ×2 (10:30→21:49)
[2018-11-19] MEDS: FENOFIBRATE 48 MG TABLET PO SCH (10:30)
[2018-11-19] MEDS: ACETAMINOPHEN 325 MG TABLET PO PRN (12:49)
--- NOTE | 2018-11-19 12:57 | ED Physician Documentation ---
ED Addendum - Addendum Addendum: 11/19/18 12:56 Diagnosis confusion, UTI Status fair
[2018-11-19] MEDS ORDERED: MIN OIL/DIMETHICON/COCONUT OIL 92 GM TUBE TOP PRN (13:41)
[2018-11-20] MEDS: AZTREONAM 1 GM in SODIUM CHLORIDE 0.9% MINIBAG 100 ML IV SCH ×2 (00:09→08:23)
[2018-11-20] MEDS: SODIUM CHLORIDE FLUSH 0.9% 10 ML SYRINGE IVP SCH ×3 (00:14→17:21)
[2018-11-20] MEDS: ACETAMINOPHEN 325 MG TABLET PO PRN ×3 (00:54→20:39)
[2018-11-20 06:17] LABS: BASOPHILS % (AUTO) 0.5 %; EOSINOPHILS # (AUTO) 0.3 10^3/uL (0.0-0.7); EOSINOPHILS % (AUTO) 4.6 %; HGB - HEMOGLOBIN 11.6 g/dL (12.0-16.0); LYMPHOCYTES # (AUTO) 2.4 10^3/uL (1.5-3.5); LYMPHOCYTES % (AUTO) 34.8 %; MEAN CORPUSCULAR HEMOGLOBIN 30.5 pg (27.0-31.0); MEAN CORPUSCULAR HGB CONC 34.1 g/dL (32.0-36.0); MEAN CORPUSCULAR VOLUME 89.4 fL (81.0-99.0); MEAN PLATELET VOLUME 8.8 fL (7.9-10.8); MONOCYTES # (AUTO) 0.5 10^3/uL (0.0-1.0); MONOCYTES % (AUTO) 6.4 %; NEUTROPHILS # (AUTO) 3.8 10^3/uL (1.5-6.6); NEUTROPHILS % (AUTO) 53.7 %; PLT - PLATELET COUNT 210 10^3/uL (130-450); RED BLOOD COUNT 3.82 10^6/uL (4.20-5.40); RED CELL DISTRIBUTION WIDTH 14.5 % (12.0-15.0)
[2018-11-20 06:26] LABS: CALCIUM 9.2 mg/dL (8.5-10.3)
[2018-11-20] MEDS: INSULIN NPH HUMAN 100 UNIT/1 ML 10 ML MDV SUBQ SCH ×2 (08:04→20:40)
[2018-11-20] MEDS: INSULIN ASPART 300 UNIT/3 ML PEN SUBQ SCH ×4 (08:04→20:40)
[2018-11-20] MEDS: levETIRAcetam 500 MG/5 ML UDC PO SCH ×2 (08:07→20:39)
[2018-11-20] MEDS: oxyCODONE 5 MG TABLET PO PRN ×3 (08:07→20:39)
[2018-11-20] MEDS: POLYETHYLENE GLYCOL 3350 17 GM PACKET PO SCH (08:08)
[2018-11-20] MEDS: GABAPENTIN 300 MG CAPSULE PO SCH ×2 (08:08→20:39)
[2018-11-20] MEDS: FENOFIBRATE 48 MG TABLET PO SCH (08:09)
[2018-11-20] MEDS: HEPARIN 5,000 UNIT/ML VIAL SUBQ SCH ×2 (08:10→20:39)
--- NOTE | 2018-11-20 08:25 | PROVIDER PROGRESS NOTE ---
Subjective - Prog Note Date Prog Note Date: 11/20/18 Prog Note Time: 08:15 - Subjective Subjective: Patient sitting up in the chair Able to feed herself Mentation continues to improve Able to tell me she takes SS regular insulin and N insulin as much as 100 units/day that is titrated by Dr. Larson Current Medications - Current Medications Current Medications: Acetaminophen (Tylenol) 650 mg PO Q4HR PRN PRN Reason: Pain 1 to 4 Last Admin: 11/20/18 00:54 Dose: 650 mg Ciprofloxacin (Cipro) [address] [facility] Stop: 11/24/18 21:01 Fenofibrate (Tricor) [address] [facility] Last Admin: 11/20/18 08:09 Dose: 48 mg Gabapentin (Neurontin) [address] [facility] Last Admin: 11/20/18 08:08 Dose: 600 mg Heparin Sodium (Porcine) () 5,[address] [facility] Last Admin: 11/20/18 08:10 Dose: 5,000 unit Hydralazine HCl (Apresoline Inj) 5 mg IVP Q8H PRN PRN Reason: NEEDED PER PROVIDER ORDERS Last Admin: 11/18/18 22:04 Dose: 5 mg Insulin Aspart (Novolog) 3 - 11 unit SUBQ 0800,1200,1700,2100 [facility]; Protocol Last Admin: 11/20/18 08:04 Dose: 7 unit Insulin Human NPH (Novolin N) [address] [facility] Last Admin: 11/20/18 08:04 Dose: 5 unit Levetiracetam (Keppra) [address] [facility] Last Admin: 11/20/18 08:07 Dose: 500 mg Mineral Oil (Cavilon) 1 applic TOP PRN PRN PRN Reason: Skin Care Ondansetron HCl (Zofran Inj) 4 mg IVP Q6HR PRN PRN Reason: Nausea / Vomiting Oxycodone HCl (Roxicodone) 10 mg PO TID PRN PRN Reason: PAIN Last Admin: 11/20/18 08:07 Dose: 10 mg Polyethylene Glycol (Miralax) [address] [facility] Last Admin: 11/20/18 08:08 Dose: 17 gm Sodium Chloride (Normal Saline Flush 0.9%) 10 ml IVP PRN PRN PRN Reason: NEEDED PER PROVIDER ORDERS Last Admin: 11/19/18 08:24 Dose: 10 ml Sodium Chloride (Normal Saline Flush 0.9%) 10 ml IVP 0100,0900,1700 [facility] Last Admin: 11/20/18 08:08 Dose: 10 ml Objective - Vital Signs/Intake & Output Reviewed Vital Signs: Yes Vital Signs: Vital Signs x48h Temp Pulse Resp BP Pulse Ox 11/20/18 06:40 36.7 C 81 18 139/88 H 97 Intake & Output: Intake & Output 11/17/18 11/18/18 11/19/18 11/20/18 23:59 23:59 23:59 23:59 Intake Total 1640 1500 150 Output Total 575 500 Balance 1640 925 -350 - Objective General Appearance: positive: No acute distress, Alert Eyes Bilateral: positive: Normal inspection, PERRL, EOMI ENT: positive: ENT inspection nml, Pharynx nml, No signs of dehydration Neck: positive: Nml inspection, Trachea midline Respiratory: positive: Chest non-tender, No respiratory distress, Breath sounds nml. negative: Wheezes, Rales, Rhonchi Cardiovascular: positive: Regular rate & rhythm, No murmur, No gallop Peripheral Pulses: 2+ Dorsalis pedis (R), 2+ Dorsalis pedis (L) Abdomen: positive: Non-tender, No organomegaly, Nml bowel sounds, No distention Skin: positive: Warm, Dry Extremities: positive: Non-tender, Full ROM, Nml appearance Neurologic/Psychiatric: positive: Oriented x3, CN's nml (2-12), Motor nml, Sensation nml, Mood/affect nml - Lab Results Fish Bones: 11/20/18 05:36 11/20/18 05:36 Other Labs: Lab Results x24hrs 11/20/18 11/20/18 Range/Units 05:36 05:36 WBC 7.0 (4.8-10.8) x10^3/uL RBC 3.82 L (4.20-5.40) 10^6/uL Hgb 11.6 L (12.0-16.0) g/dL Hct 34.1 L (37.0-47.0) % MCV 89.4 (81.0-99.0) fL MCH 30.5 (27.0-31.0) pg MCHC 34.1 (32.0-36.0) g/dL RDW 14.5 (12.0-15.0) % Plt Count 210 (130-450) 10^3/uL MPV 8.8 (7.9-10.8) fL Neut # (Auto) 3.8 (1.5-6.6) 10^3/uL Lymph # (Auto) 2.4 (1.5-3.5) 10^3/uL [place] # (Auto) 0.5 (0.0-1.0) 10^3/uL Eos # (Auto) 0.3 (0.0-0.7) 10^3/uL Baso # (Auto) 0.0 (0.0-0.1) 10^3/uL Absolute Nucleated RBC 0.00 x10^3/uL Nucleated RBC % 0.0 /100WBC Sodium 135 (135-145) mmol/L Potassium 3.6 (3.5-5.0) mmol/L Chloride 98 L (101-111) mmol/L Carbon Dioxide 26 (21-32) mmol/L Anion Gap 11.0 (6-13) BUN 15 (6-20) mg/dL Creatinine 1.0 (0.4-1.0) mg/dL Estimated GFR (MDRD) 55 L (>89) Glucose 213 H (70-100) mg/dL Calcium 9.2 (8.5-10.3) mg/dL Assessment/Plan - Problem List (1) Altered mental status Impression: Patient presented with altered mental status. Per report, patient previously able to function independently without difficulty. She presented Jul 2018, with the same symptoms. Work-up negative. CT head completed 11/18/2018 negative for acute abnormality. Patient being worked up outpatient with neurologist and reports that she has an EEG coming up in December. She did have any weakness on examination, but she was unable to complete lmfrbd-wk-ooqy test accurately. She does report a history of falls. Her brother and rvisli-dk-swv were present at the bedside late afternoon yesterday and were able to give more of the patient's history. On 11/17/2018, the patient was a little confused, but it would come and go. She would stumble over words at times. The qzworo-ia-ghu attributed it to the patient's lack of sleep over the previous few days. The patient normally stays awake at night and sleeps during the day. On the day of presentation to the ER, the jpmjpw-ah-kjg reports the patient walked up to her with her insulin needle in hand saying 'i dont know'. For this, [employer] was alerted and the p john was brought to the ER. The zdhrjr-md-ngu states that between the incident in July and the start of symptoms on 11/17/2018, patient was without confusion and able to care for herself without difficulty. Her mentation continues to improve. She is alert and oriented x4 and is able to feed herself today. 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 Patient reports outpatient follow-up with neurology, to have an EEG in December. Plan: - continue keppra 500 mg PO BID (3) Diabetes mellitus, insulin dependent (IDDM), uncontrolled Impression: Patient with elevated blood glucose in the 300s upon admission. Ketones are in her urine. Anion gap 13. She received IV fluid and regular insulin in the ER. She reports not taking her medication for the last couple of days. Hgb A1c 7.8. Discharge medication list from Jul 2018 lists patient taking metformin and SSI. Patient tells me that she also takes long acting insulin Novolin because 'she cannot afford' to take the brand name. She reports buying NPH and Regular insulin over the counter. Dr. Larson adjusts her medications. Blood sugars are below 250. Plan: - continue 5 units NPH BID - hold metformin, this will be resumed upon discharge - ACHS blood sugar checks - moderate high SSI - follow-up with PCP upon discharge Qualifiers: Glycemic state: with hyperglycemia Qualified Code(s): E10.65 - Type 1 diabetes mellitus with hyperglycemia (4) UTI (urinary tract infection) Impression: Patient presents with dysuria, hematuria, frequency and suprapubic tenderness. Urinalysis with bacteruria, blood, WBC and trace leukoesterase. She reports a severe anaphylactic reaction to penicillins. Blood cultures have been obtained. WBC wnl and she is afebrile. Patient's jebtfu-un-bef patient with frequent urinary tract infections, most recently treated 3 weeks ago, unsure what antibiotics were given. Plan: - discontinue aztreonam - change to cipro 500 mg BID to complete 5 days of treatment - monitor temperature - follow-up CBC - follow-up with PCP upon discharge. Qualifiers: Urinary tract infection type: acute cystitis Hematuria presence: without hematuria Qualified Code(s): N30.00 - Acute cystitis without hematuria (5) Depression Impression: Patient on elavil, cymbalta and hydroxyzine PRN per discharge summary in 2018. Unsure if patient is taking any of these medications as there are no insurance refill records. Patient reports she sees a therapist outpatient. Plan: - monitor, still need to determine which medications the patient is on Qualifiers: Depression Type: unspecified Qualified Code(s): F32.9 - Major depressive disorder, single episode, unspecified (6) Hypertriglyceridemia Impression: Patient on fenofibrate per 2018 discharge summary. Unsure if patient is still on this medication. Triglycerdise 739. Patient thinks this may be familial as her triglycerides have been >9000 at one time. Plan: - fenofibrate at 48 mg daily for patient's renal function (7) Hypertension Impression: Patient on losartan at home. Patient's blood pressure is elevated. Her kidney function is at her baseline. Plan: - still need to determine if the patient takes blood pressure medication at home - PRN hydralazine for sBP >160 Qualifiers: Hypertension type: essential hypertension Qualified Code(s): I10 - Essential (primary) hypertension (9) Chronic kidney disease, stage 3 Impression: Patient's kidney function is at her baseline. Plan: - monitor (10) Chronic back pain Impression: Patient with chronic back pain on oxycodone at home. Plan: - will continue home oxycodone. - PT order placed Qualifiers: Back pain location: back pain in unspecified location Back pain laterality: unspecified Qualified Code(s): M54.9 - Dorsalgia, unspecified; G89.29 - Other chronic pain (11) Hypokalemia, resolved
[2018-11-20] MEDS: CIPROFLOXACIN 250 MG TABLET PO SCH ×2 (10:03→20:39)
[2018-11-20] MEDS: INSULIN REGULAR HUMAN 100 UNIT/1 ML 10 ML MDV SUBQ SCH ×2 (12:11→17:22)
[2018-11-20] MEDS ORDERED: LORazepam 1 MG TABLET PO STA (14:01)
[2018-11-20] MEDS ORDERED: LORazepam 0.5 MG TABLET PO PRN (17:49)
[2018-11-20 18:22] LABS: CALCIUM 9.3 mg/dL (8.5-10.3); CREATININE 0.9 mg/dL (0.4-1.0)
[2018-11-20] MEDS ORDERED: POTASSIUM CHLORIDE 20 MEQ TABLET PO STA (18:57)
[2018-11-20] MEDS ORDERED: CALCIUM CARBONATE CHEW 500 MG TABLET PO PRN (23:19)
[2018-11-21 00:12] VITALS: BP 139/50
[2018-11-21] MEDS: SODIUM CHLORIDE FLUSH 0.9% 10 ML SYRINGE IVP SCH ×2 (00:49→08:49)
[2018-11-21 06:04] LABS: BASOPHILS % (AUTO) 0.6 %; EOSINOPHILS # (AUTO) 0.3 10^3/uL (0.0-0.7); EOSINOPHILS % (AUTO) 4.5 %; HGB - HEMOGLOBIN 11.6 g/dL (12.0-16.0); LYMPHOCYTES % (AUTO) 34.1 %; MEAN CORPUSCULAR HEMOGLOBIN 30.2 pg (27.0-31.0); MEAN CORPUSCULAR HGB CONC 33.6 g/dL (32.0-36.0); MEAN CORPUSCULAR VOLUME 90.1 fL (81.0-99.0); MEAN PLATELET VOLUME 8.9 fL (7.9-10.8); MONOCYTES # (AUTO) 0.3 10^3/uL (0.0-1.0); MONOCYTES % (AUTO) 5.6 %; NEUTROPHILS # (AUTO) 3.3 10^3/uL (1.5-6.6); NEUTROPHILS % (AUTO) 55.2 %; PLT - PLATELET COUNT 192 10^3/uL (130-450); RED BLOOD COUNT 3.82 10^6/uL (4.20-5.40); RED CELL DISTRIBUTION WIDTH 14.5 % (12.0-15.0)
[2018-11-21 06:11] LABS: CALCIUM 8.9 mg/dL (8.5-10.3); CREATININE 0.9 mg/dL (0.4-1.0)
[2018-11-21] MEDS: INSULIN ASPART 300 UNIT/3 ML PEN SUBQ SCH ×2 (08:46→12:02)
[2018-11-21] MEDS: GABAPENTIN 300 MG CAPSULE PO SCH (08:47)
[2018-11-21] MEDS: INSULIN REGULAR HUMAN 100 UNIT/1 ML 10 ML MDV SUBQ SCH ×2 (08:47→12:02)
[2018-11-21] MEDS: CIPROFLOXACIN 250 MG TABLET PO SCH (08:47)
[2018-11-21] MEDS: FENOFIBRATE 48 MG TABLET PO SCH (08:48)
[2018-11-21] MEDS: HEPARIN 5,000 UNIT/ML VIAL SUBQ SCH (08:48)
[2018-11-21] MEDS: levETIRAcetam 500 MG/5 ML UDC PO SCH (08:49)
[2018-11-21] MEDS: POLYETHYLENE GLYCOL 3350 17 GM PACKET PO SCH (08:49)
--- NOTE | 2018-11-21 08:59 | DISCHARGE SUMMARY ---
"Discharge Summary Admit Date: 11/18/18 Discharge Date: 11/21/18 Discharging Provider: Ayah ALFARO Primary Care Provider: Dr. Jose Larson Code Status: Attempt Resuscitation Condition at Discharge: Good Discharge Disposition: 01 Home, Self Care - DIAGNOSES Admission Diagnoses: (1) Altered mental status (2) Seizure disorder (3) Diabetes mellitus, insulin dependent (IDDM), uncontrolled (4) UTI (urinary tract infection) (5) Depression (6) Hypertriglyceridemia (7) Hypertension (8) Chronic kidney disease, stage 3 (9) Chronic back pain Discharge Diagnoses with Status of Each Condition: (1) Altered mental status, resolved (2) Seizure disorder, stable (3) Diabetes mellitus, insulin dependent (IDDM), uncontrolled, improved (4) UTI (urinary tract infection), improved (5) Depression, stable (6) Hypertriglyceridemia, stable (7) Hypertension, stable (8) Chronic kidney disease, stage 3, stable (9) Chronic back pain, stable (10) Hypokalemia, resolved - HPI History of Present Illness: History is difficult to obtain from patient as she often has word finding difficulty during interview. Patient presents alone. She is a 73 year old female with a PMH significant for nonspecified brain mass and previous workups for CVA and complex seizures. She tells me she is seeing a neurologist outpatient in [place] and has an upcoming EEG on December 14. Previous imaging of CT head, CTA, and MRI without specific findings. Patient presented to [facility] ER alone today by EMS using her [employer]. She presents with altered mental status. She reports being told by her tlgpoo-la-mpa that she was slurring her words and had memory difficulties. In the ER, she is alert to person and place. Work-up in the ER revealed WBC of 7.2, moderate bacteruria with trace leukocyte esterase, and ketones. She is afebrile. Her blood glucose was 334 -- she was given IVF and regular insulin. Her physical exam was non-focal. CT head negative for acute intracranial process. Patient lives at home with her brother and niavzh-pj-yiy. She reports caring for herself and being in charge or her own medications. She reports not taking her medications as prescribed the past couple of days. She has not been checking her blood sugars. She states that she takes Novolin at home. She reports dysuria, frequency, and scant amount of blood in her urine. Her last fall at home was a couple of weeks ago. She reports intermittent chest discomfort that she describes as sharp and will wake her up in her sleep, currently denies CP or discomfort. Denies SOB. Reports chronic diarrhea. Of note, pharmacy unable to complete medication reconciliation due to AMS and [facility] reports no medications have been refilled since July. At this patient, given altered mental status, patient will be defaulted to a full code. - CONSULTS | PROCEDURES Consultations: None - HOSPITAL COURSE Hospital Course: (1) Altered mental status Patient presented with altered mental status. Per report, patient previously able to function independently without difficulty. She presented Jul 2018, with the same symptoms. Work-up negative. CT head completed 11/18/2018 negative for acute abnormality. Patient being worked up outpatient with neurologist and reports that she has an EEG coming up in December. She did not have any weakness on examination on the day of admission, but she was unable to complete wdosht-lm-bpal test accurately. She does report a history of falls. Her brother and xcpabv-ht-czc were present at the bedside late afternoon on the day of admission, and were able to give more of the patient's history. On 11/17/2018, the patient was a little confused, but it was transient. She would stumble over words at times. The lympah-er-afh attributed it to the patient's lack of sleep over the previous few days. The patient normally stays awake at night and sleeps during the day. On the day of presentation to the ER, the oxapta-su-pvf reports the patient walked up to her with her insulin needle in hand saying 'i dont know'. For this, [employer] was alerted and the patient was brought to the ER. The ofuagf-zx-mxe states that between the incident in July and the start of symptoms on 11/17/2018, patient was without confusion and able to care for herself without difficulty. She was treated for a UTI. Her mentation continued to improve. She is alert and oriented x4 and is able to feed herself. She is st able for discharge. (2) UTI (urinary tract infection) Patient presented with AMS, dysuria, hematuria, frequency and suprapubic tenderness. Urinalysis with bacteruria, blood, WBC and trace leukoesterase. She reports a severe anaphylactic reaction to penicillins. Blood cultures no growth to date. WBC wnl and she is afebrile. Patient's wjgjdd-pa-ouo reports patient with frequent urinary tract infections, most recently treated 3 weeks ago, unsure what antibiotics were given. She was treated with aztreonam. This was changed to cipro 500 mg BID and she was discharge with a prescription. 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 Patient reports outpatient follow-up with neurology, to have an EEG in December. Her keppra was continued. (4) Diabetes mellitus, insulin dependent (IDDM), uncontrolled Patient with elevated blood glucose in the 300s upon admission. Ketones are in her urine. Anion gap 13. She received IV fluid and regular insulin in the ER. She reports not taking her medication for the last couple of days. Hgb A1c 7.8. Discharge medication list from Jul 2018 lists patient taking metformin and SSI. Patient tells me that she also takes long acting insulin Novolin because 'she cannot afford' to take the brand name. She reports buying NPH and Regular insulin over the counter. Dr. Larson adjusts her medications. Low dose NPH and nutritional regular insulin were started and her blood sugars improved to the low 200s. She will resume her outpatient insulin regimen and metformin upon discharge. She was asked to follow-up with her PCP in regards to her insulin dosing and blood sugar control. (5) Depression Patient on elavil, cymbalta and hydroxyzine PRN per discharge summary in 2018. Unsure if patient is taking any of these medications as there are no insurance refill records. Patient reports she sees a therapist outpatient, but has not seen the therapist since September. She was instructed to resume her antidepressant medications at discharge. (6) Hypertriglyceridemia Patient on fenofibrate per 2018 discharge summary. Unsure if patient is still on this medication. Triglycerides 739. Patient thinks this may be familial as her triglycerides have been >9000 at one point in time. She was started on fenofibrate and sent home with a prescription for this medication. (7) Hypertension Patient on losartan at home. Blood pressures were slightly elevated at times during her hospitalization. She was instructed to resume her home anti-hype rtensives upon discharge. (8) Chronic kidney disease, stage 3 Patient's kidney function is at her baseline. (9) Chronic back pain Patient with chronic back pain on oxycodone at home. Her oxycodone was continued. She was not sent home with a prescription for narcotics. (10) Hypokalemia This was replaced. Potassium 4.2 on the day of discharge. - ALLERGIES Allergies/Adverse Reactions: Allergies Allergy/AdvReac Type Severity Reaction Status Date / Time Penicillins Allergy Severe Anaphylaxis Verified 11/18/18 15:37 doxycycline Allergy Rash Verified 11/18/18 15:37 tamsulosin [From Flomax] Allergy Rash Verified 11/18/18 10:49 - MEDICATIONS Home Medications: Ambulatory Orders Medication Instructions Recorded Confirmed Oxycodone HCl/Acetaminophen 1 tab PO Q6H PRN 11/18/18 11/18/18 [Oxycodone-Acetaminophen 10-325] levETIRAcetam [Levetiracetam] 500 mg PO BID 11/18/18 11/18/18 Ciprofloxacin [Cipro] 500 mg PO BID 4 Days #16 tablet 11/21/18 Fenofibrate [Tricor] 48 mg PO DAILY #30 tablet 11/21/18 - PHYSICAL EXAM AT DISCHARGE Physical Exam Other/Comments: General Appearance: positive: No acute distress, Alert Eyes Bilateral: positive: Normal inspection, PERRL, EOMI ENT: positive: ENT inspection nml, Pharynx nml, No signs of dehydration Neck: positive: Nml inspection, Trachea midline Respiratory: positive: Chest non-tender, No respiratory distress, Breath sounds nml. negative: Wheezes, Rales, Rhonchi Cardiovascular: positive: Regular rate & rhythm, No murmur, No gallop Peripheral Pulses: 2+ Dorsalis pedis (R), 2+ Dorsalis pedis (L) Abdomen: positive: Non-tender, No organomegaly, Nml bowel sounds, No distention Skin: positive: Warm, Dry Extremities: positive: Non-tender, Full ROM, Nml appearance Neurologic/Psychiatric: positive: Oriented x3, CN's nml (2-12), Motor nml, Sensation nml, Mood/affect nml - LABS Result Diagrams: 11/21/18 05:31 11/21/18 05:31 - DIAGNOSTIC IMAGING Diagnostic Imaging Results: Final report reviewed Diagnostic Imaging Results Comments: Head CT w/o contrast 11/18/2018: No acute intracranial abnormality - FOLLOW UP Follow Up: Follow-up with Dr. Larson within 1 week Resume outpatient PT Set up care giving services to assist with ADLs - TIME SPENT Time Spent in Discharge (Minutes): 60"
--- NOTE | 2018-11-21 08:59 | Discharge Plan ---
Discharge Plan Disposition: Home, Self Care Condition: Good Prescriptions: Ciprofloxacin [Cipro] 500 mg PO BID 4 Days #16 tablet Fenofibrate [Tricor] 48 mg PO DAILY #30 tablet Diet: Diabetic Activity Restrictions: No Restrictions Additional Instructions or Follow Up instructions: You were admitted to the hospital for confusion related to a urinary tract infection. A prescription for ciprofloxacin has been sent to [facility]. Please complete the entire course of antibiotics. We do not have a current list of your medications. Please resume your home medications upon discharge. A new prescription for fenofibrate (for your high triglyceride levels) has been sent to [facility] also. Your blood sugars were elevated during your admission. Please resume your metformin at discharge and resume your insulin orders per Dr. Gramajo direction. Be sure to check your blood sugars at home. Resume outpatient PT upon discharge. Follow-up with Dr. Larson within 1 week for post-hospitalization follow-up. Follow-Up Care: Outpatient Rehab - PT No Smoking: If you smoke, Please STOP! Call for help. Follow-up with: Jose Larson MD [Primary Care Provider] -
[2018-11-21] MEDS ORDERED: INSULIN NPH HUMAN 100 UNIT/1 ML 10 ML MDV SUBQ SCH (09:00)
[2018-11-21] MEDS: oxyCODONE 5 MG TABLET PO PRN (11:08)
== END 2018-11-21 13:02 | disposition home or self-care (01) | DRG 638 ==
LOC: EDUNIT# → ED 10:43 → MS2 13:37
PROVIDERS: ADMIT Nurse Practitioner; ATTEND Nurse Practitioner
DX: N39.0 Urinary tract infection, site not specified (principal); E11.9 Type 2 diabetes mellitus without complications; R41.0 Disorientation, unspecified; E10.65 Type 1 diabetes mellitus with hyperglycemia; I10 Essential (primary) hypertension; N30.01 Acute cystitis with hematuria; R41.82 Altered mental status, unspecified; Z91.14 Patient's other noncompliance with medication regimen; E78.00 Pure hypercholesterolemia, unspecified; J45.909 Unspecified asthma, uncomplicated; K21.9 Gastro-esophageal reflux disease without esophagitis; R32 Unspecified urinary incontinence; F32.9 Major depressive disorder, single episode, unspecified; G89.29 Other chronic pain; Z79.82 Long term (current) use of aspirin; M54.9 Dorsalgia, unspecified; Z87.891 Personal history of nicotine dependence; Z90.49 Acquired absence of other specified parts of digestive tract; Z96.659 Presence of unspecified artificial knee joint; Z79.4 Long term (current) use of insulin; Z88.0 Allergy status to penicillin; G40.909 Epilepsy, unspecified, not intractable, without status epilepticus; E78.1 Pure hyperglyceridemia; E10.22 Type 1 diabetes mellitus with diabetic chronic kidney disease; I12.9 Hypertensive chronic kidney disease with stage 1 through stage 4 chronic kidney disease, or unspecified chronic kidney disease; N18.3 Chronic kidney disease, stage 3 (moderate); E87.6 Hypokalemia
CPT/HCPCS: 36415 ×2; 70450 ×2; 80048 ×2; 80053 ×2; 80061 ×2; 81001 ×2; 81003; 83036 ×2; 83690 ×2; 83721 ×2; 85025 ×2; 85610 ×2; 85730 ×2; 87040 ×2; 87086; 93005 ×2; 96360 ×2; 97162; 99283; 99284 ×2; A9270; J1815; J8499; S0073

== ENCOUNTER 2019-09-21 15:00 | Outpatient (CLI) | payer MEDICARE, OTHER ==
--- NOTE | 2019-09-23 10:45 | Ultrasound Report ---
Reason: HX OF UTI, URGENCY OF URINATION, URINARY FREQUENCY Procedure Date: 09/21/2019 Accession Number: [id number] / [id number] Procedure: US - Retroperitoneal CPT Code: Final Report FULL RESULT: EXAM: ULTRASOUND RENAL COMPLETE EXAM DATE: 09/21/2019 03:50 PM HISTORY: HX OF UTI, URGENCY OF URINATION, URINARY FREQUENCY COMPARISON: NONE TECHNIQUE: Real-time scanning was performed at the kidneys and urinary bladder with static images obtained. Color doppler utilized. FINDINGS: Right Kidney: 11.3 x 7.7 x 6.2 cm. Normal echotexture with no stones, contour-deforming masses, or hydronephrosis. Left Kidney: 11 x 4.6 x 7.1 cm. Essentially unremarkable cortical echogenicity other than a small focus of increased echogenicity at the mid level measuring 8 mm. 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 Upper pole hypoechoic to anechoic structure measuring 9 x 15 mm is probably a cyst. Six-month follow-up sonography is recommended to assess stability. Bladder: No significant asymmetry. Ureteral jets not seen. The prevoid bladder volume was 138 cc. The patient was unable to void. Other: None. IMPRESSION: Small benign appearing irregularities of the left kidney. Consider six-month follow-up ultrasound to assess stability. Unremarkable right kidney. No apparent urinary bladder asymmetry. Relatively small volume. RADIA
== END 2019-09-21 15:01 | disposition home or self-care (01) ==
LOC: DI 15:00
PROVIDERS: ATTEND Urology
DX: N28.9 Disorder of kidney and ureter, unspecified (principal); E11.42 Type 2 diabetes mellitus with diabetic polyneuropathy; Z79.4 Long term (current) use of insulin; R39.15 Urgency of urination; R35.0 Frequency of micturition; Z87.440 Personal history of urinary (tract) infections
CPT/HCPCS: 76770

== ENCOUNTER 2020-04-17 06:26 | Day surgery (SDC) | payer MEDICARE, OTHER ==
[2020-04-17] MEDS ORDERED: LIDOCAINE-MPF 2% 5 ML VIAL IM ONE (06:27)
[2020-04-17] MEDS ORDERED: MIDAZOLAM 2 MG/2 ML VIAL IVP ONE (06:27)
[2020-04-17] MEDS ORDERED: KETAMINE 500 MG/10 ML VIAL IVP ONE (06:27)
[2020-04-17] MEDS ORDERED: PROPOFOL 200 MG/20 ML VIAL IVP ONE (06:27)
[2020-04-17] MEDS ORDERED: fentaNYL 100 MCG/2 ML VIAL IVP ONE (06:27)
[2020-04-17] MEDS ORDERED: LACTATED RINGERS 1,000 ML IV ONE ×2 (06:28→08:51)
[2020-04-17] MEDS ORDERED: LIDO GARGLE 30 ML BOTTLE ONE (07:26)
[2020-04-17] MEDS ORDERED: LIDO GARGLE 30 ML BOTTLE PO ONE (07:28)
[2020-04-17] MEDS ORDERED: BENZOCAINE/TETRACAINE/BUTAMBEN 20 GM TOP ONE (07:29)
--- NOTE | 2020-04-17 07:50 | ANESTHESIA ---
Pre-Anesthesia VS, & Labs - Diagnosis anemia - Procedure colonoscopy, EGD Vital Signs: Temp Pulse Resp BP Pulse Ox 36.0 C L 87 20 149/68 H 96 04/17/20 06:39 04/17/20 06:39 04/17/20 06:39 04/17/20 06:39 04/17/20 06:39 Height 5 ft 8 in Weight (kg) 101 kg Body Mass Index 33.6 - NPO >8 hours - Is Patient ?: No - Lab Results Current Lab Results: Laboratory Tests 04/17/20 06:54: POC Whole Bld Glucose 169 H Home Medications and Allergies Home Medications: Ambulatory Orders Albuterol Sulfate [Proair Hfa Inhaler] 1 - 2 puffs INH Q4H PRN 04/16/20 Aspirin [Adult Aspirin Regimen] 81 mg PO DAILY 04/16/20 Cholecalciferol (Vitamin D3) [Vitamin D3] 400 unit PO DAILY 04/16/20 Duloxetine HCl [Cymbalta] 60 mg PO DAILY 04/16/20 Fluticasone/Salmeterol [Advair 100-50 Diskus] 1 spray INH DAILY 04/16/20 Gabapentin 1,200 mg PO BID 04/16/20 Insulin Aspart [Novolog] 20 unit SQ BID 04/16/20 Insulin Glargine [Lantus Solostar] 100 unit SUBQ DAILY 04/16/20 Levetiracetam [Keppra] 500 mg PO BID 04/16/20 Losartan [Cozaar] 50 mg PO DAILY 04/16/20 Metformin HCl 1,000 mg PO BID 04/16/20 Omeprazole 20 mg PO DAILY 04/16/20 Pramipexole Di-HCl [Mirapex] 0.125 mg PO DAILY 04/16/20 Pravastatin [Pravachol] 40 mg PO DAILY 04/16/20 diphenhydrAMINE [Benadryl] 25 mg PO ONCE 04/16/20 oxyCODONE ER [OxyCONTIN] 10 mg PO DAILY 04/16/20 Promethazine [Phenergan] 25 mg PO Q6HR 04/17/20 Albuterol Sulfate [Proair Hfa Inhaler] 1 - 2 puffs INH Q4H PRN 04/16/20 Aspirin [Adult Aspirin Regimen] 81 mg PO DAILY 04/16/20 Cholecalciferol (Vitamin D3) [Vitamin D3] 400 unit PO DAILY 04/16/20 Duloxetine HCl [Cymbalta] 60 mg PO DAILY 04/16/20 Fluticasone/Salmeterol [Advair 100-50 Diskus] 1 spray INH DAILY 04/16/20 Gabapentin 1,200 mg PO BID 04/16/20 Insulin Aspart [Novolog] 20 unit SQ BID 04/16/20 Insulin Glargine [Lantus Solostar] 100 unit SUBQ DAILY 04/16/20 Levetiracetam [Keppra] 500 mg PO BID 04/16/20 Losartan [Cozaar] 50 mg PO DAILY 04/16/20 Metformin HCl 1,000 mg PO BID 04/16/20 Omeprazole 20 mg PO DAILY 04/16/20 Pramipexole Di-HCl [Mirapex] 0.125 mg PO DAILY 04/16/20 Pravastatin [Pravachol] 40 mg PO DAILY 04/16/20 diphenhydrAMINE [Benadryl] 25 mg PO ONCE 04/16/20 oxyCODONE ER [OxyCONTIN] 10 mg PO DAILY 04/16/20 Promethazine [Phenergan] 25 mg PO Q6HR 04/17/20 Allergies/Adverse Reactions: Allergies Allergy/AdvReac Type Severity Reaction Status Date / Time Penicillins Allergy Severe Anaphylaxis Verified 04/17/20 06:59 doxycycline Allergy Rash Verified 04/17/20 06:59 tamsulosin [From Flomax] Allergy Rash Verified 04/17/20 06:59 Anes History & Medical History - Anesthetic History Anesthesia Complications: reports: No previous complications - Medical History Cardiovascular: reports: Hypertension, High cholesterol Pulmonary: reports: Asthma Gastrointestinal: reports: GERD, Other Urinary: reports: Retention, Incontinence Neuro: reports: Seizure disorder Musculoskeletal: reports: Osteoarthritis, Fibromyalgia Endocrine/Autoimmune: reports: Type 1 diabetes Skin: reports: None Smoking Status: Former smoker - Surgical History General: Cholecystectomy, Appendectomy Eyes Ears Nose Throat (EENT): Tonsil/Adenoidectomy Gynecologic: Tubal ligation Orthopedic: Knee replacement, Other Dermatologic: Debridement Exam Dental: WNL Mouth Opening: Greater than 4 Fingerbreadths Mallampati classification: II Respiratory: Lungs clear Cardiovascular: Regular rate, Normal S1, Normal S2 Mental/Cognitive Status: Alert/Oriented X3 Plan Anesthesia Type: MAC, Total IV Consent for Procedure(s) Verified and Reviewed: Yes Code Status: Attempt Resuscitation ASA classification: 3-Severe systemic disease Is this case an emergency?: No
--- NOTE | 2020-04-17 09:14 | ANESTHESIA POST OP EVALUATION ---
Anesthesia Post Eval - Post Anesthesia Eval Vitals: Last Vital Signs Temp 36.1 C L 04/17/20 08:51 Pulse 73 04/17/20 09:00 Resp 22 04/17/20 09:00 BP 147/58 H 04/17/20 09:00 Pulse Ox 97 04/17/20 09:00 CV Function Including HR & BP: positive: Stable Pain Control: positive: Satisfactory Nausea & Vomiting: positive: Negative Mental Status: positive: Baseline, Patient Participates Respiratory Status: Airway Patent Hydration Status: Satisfactory Anesthesia Complications: positive: None
[2020-04-17 09:21] VITALS: BP 119/58
== END 2020-04-17 06:27 | disposition home or self-care (01) ==
LOC: SDS 06:26
PROVIDERS: ATTEND Surgery
PROC: 0DB48ZX Excision of Esophagogastric Junction, Via Natural or Artificial Opening Endoscopic, Diagnostic (ICD-10-PCS; 2020-04-17)
PROC: 0DB98ZX Excision of Duodenum, Via Natural or Artificial Opening Endoscopic, Diagnostic (ICD-10-PCS; principal; 2020-04-17 07:30)
PROC: 0DB78ZX Excision of Stomach, Pylorus, Via Natural or Artificial Opening Endoscopic, Diagnostic (ICD-10-PCS; 2020-04-17 07:30)
DX: D64.9 Anemia, unspecified (principal); K29.70 Gastritis, unspecified, without bleeding; K21.9 Gastro-esophageal reflux disease without esophagitis; K58.1 Irritable bowel syndrome with constipation; E11.43 Type 2 diabetes mellitus with diabetic autonomic (poly)neuropathy; K31.84 Gastroparesis; R56.9 Unspecified convulsions; J45.909 Unspecified asthma, uncomplicated; I10 Essential (primary) hypertension; E78.00 Pure hypercholesterolemia, unspecified; R33.9 Retention of urine, unspecified; R32 Unspecified urinary incontinence; F32.9 Major depressive disorder, single episode, unspecified; F41.9 Anxiety disorder, unspecified; Z79.4 Long term (current) use of insulin; Z79.51 Long term (current) use of inhaled steroids; Z79.82 Long term (current) use of aspirin; Z79.899 Other long term (current) drug therapy
CPT/HCPCS: 43239; A9270; J7120

== ENCOUNTER 2020-05-22 19:45 | Outpatient (CLI) | payer MEDICARE, OTHER | END 2020-05-22 19:46 | disposition home or self-care (01) | LOC: SC 19:45 | PROVIDERS: ATTEND Internal Medicine Pulmonary Disease | DX: G47.33 Obstructive sleep apnea (adult) (pediatric) (principal); G47.61 Periodic limb movement disorder; E66.9 Obesity, unspecified; Z68.33 Body mass index [BMI] 33.0-33.9, adult | CPT/HCPCS: 95810 ==

== ENCOUNTER 2020-05-27 09:48 | Outpatient (CLI) | payer MEDICARE, OTHER ==
--- NOTE | 2020-05-27 10:36 | SLEEP CARE CONSULTATION ---
Information from patient questionnaire entered by Claire Ramirez. I have reviewed and concur with the information entered by Claire Ramirez. This document represents the service I personally performed and the decisions made by me, Kiana Wright MD, [facility]. History of Present Illness Service Date and Time: 05/27/202048 Initial [place] Sleepiness Scale score: 10 (in 2019) Current [place] Sleepiness Scale score: 17 Additional HPI information: HPI: Ms. Han was returns for follow up of the sleep study she had on 05/22/2020. The polysomnography showed that the patient had reduced sleep efficiency. Except for mild sleep fragmentation, the sleep architecture was normal. Respiratory monitoring showed moderate obstructive sleep apnea-hypopnea (AHI = 15.7) associated with frequent arousals, oxyhemoglobin desaturation and moderate hypoxia (thelma oxygen saturation of 79%). The patient did not sleep supine during this study (supine AHI = 0.0; non-supine =15.88). Snore was mild in intensity. There was severe periodic leg movement of sleep contributing to the sleep fragmentation. Cardiac rhythm was normal sinus rhythm without significant arrhythmia. No abnormal behavior (parasomnia) observed during the night. The patient was informed of these findings. I explained to her the pathophysiology behind obstructive sleep apnea. We then spent quite a bit of time discussing different treatment options. For mild obstructive sleep apnea, surgery and oral appliance are alternatives to nasal CPAP therapy but in moderate or severe cases, nasal CPAP is the most effective and reliable treatment. After some discussion, she opted to go with the nasal CPAP therapy. I explained to her how CPAP machine works and what to expect when using the machine. Sleep Study - Results Type of Sleep Study: Polysomnography Allergies and Home Medications Drug allergies reviewed: Yes Home medication list reviewed: Yes Review of Systems Review of systems same as previous: Yes Physical Exam Height: 5 ft 9 in Weight: 230 lb Body Mass Index: 34.0 BMI Classification: Obese Impression and Plan IMPRESSION: 1. Obstructive Sleep Apnea-Hypopnea Syndrome, moderate, associated with moderate hypoxemia and sleep fragmentation. Obviously this is the cause of the patients symptoms of unrefreshed sleep, and excessive daytime sleepiness. As mentioned above, the patient will return for a manual CPAP/BiPAP titration study. PLAN: 1. Schedule a manual CPAP/BiPAP titration study. 2. Attempt to lose weight. 3. Return for a follow up after the sleep study. Visit Type: In Office Time Spent with Patient (minutes): 15 Provider Statement: I spent 100% of the Face to Face Visit with the patient with greater than 50% spent counseling the patient and coordination of care.
== END 2020-05-27 09:49 | disposition home or self-care (01) ==
LOC: SC 09:48
PROVIDERS: ATTEND Internal Medicine Pulmonary Disease
DX: G47.33 Obstructive sleep apnea (adult) (pediatric) (principal); E66.9 Obesity, unspecified; Z68.34 Body mass index [BMI] 34.0-34.9, adult
CPT/HCPCS: 99213; G0463; 99212

== ENCOUNTER 2020-08-05 19:30 | Outpatient (CLI) | payer MEDICARE, OTHER | END 2020-08-05 19:31 | disposition home or self-care (01) | LOC: SC 19:30 | PROVIDERS: ATTEND Internal Medicine Pulmonary Disease | DX: Z53.9 Procedure and treatment not carried out, unspecified reason (principal) ==

== ENCOUNTER 2020-10-06 07:00 | Outpatient (CLI) | payer MEDICARE, OTHER | END 2020-10-06 23:59 | disposition home or self-care (01) | LOC: COV 07:00 | PROVIDERS: ATTEND Family Medicine | DX: R50.9 Fever, unspecified (principal); R06.02 Shortness of breath; R53.83 Other fatigue; R07.0 Pain in throat; R09.81 Nasal congestion; J34.89 Other specified disorders of nose and nasal sinuses; Z20.822 Contact with and (suspected) exposure to COVID-19 ==

== ENCOUNTER 2020-10-13 10:26 | Outpatient (CLI) | payer MEDICARE, OTHER ==
--- NOTE | 2020-10-13 12:08 | SLEEP CARE CONSULTATION ---
Information from patient questionnaire entered by Claire Ramirez. I have reviewed and concur with the information entered by Claire Ramirez. This document represents the service I personally performed and the decisions made by me, Kiana Wright MD, [facility]. History of Present Illness Service Date and Time: 10/13/2020 1026 Previous diagnosis: Moderate, Obstructive Sleep Apnea-Hypopnea Syndrome AHI: 15.7 (in 2019) Reason for follow up: first compliance Equipment type: CPAP Equipment obtained from: Other ([facility]) Mask style: Nasal Prior sleep studies: Yes Year and Where: 2019 - [facility] Sleep Type of Sleep Study: Polysomnography HPI additional information: HPI: Ms. Daugherty returned today for follow up of nasal CPAP therapy. She was diagnosed to have moderate obstructive sleep apnea-hypopnea syndrome. The patient went to [facility] for the equipment and was fitted with a Respironics DreamWear full face mask. She reports using the device almost nightly but all through the night. The compliance report shows usage in 40 nights out of the past 60 nights, averaging 3.4 hours a night. She complained of nose burning. She thinks that the pressure of 10 - 15 cmH2O is comfortable. On the CPAP therapy she has not noticed improvement. The [place] Sleepiness Scale score 10. The average residual AHI is 10.1 (mostly unspecified apnea type): and air leak, 56.9 L/min. The 90th percentile pressure is 10.8 cmH2O. CPAP Compliance Data - Data Reviewed with Patient Average duration of nightly device use: 5 hr 9 min Compliance rate %: 73 Current pressure setting (cmH2O): 5-15 Humidity settin Average residual AHI: 0.6 Subjective Missed days of use due to: reports: illness, other (Allergy to mask) Patient concerns: reports: mask discomfort Current pressure setting perceived as: comfortable Initial [place] Sleepiness Scale score: 10 (in 2020) Current [place] Sleepiness Scale score: 13 Allergies and Home Medications Drug allergies reviewed: Yes Home medication list reviewed: Yes Review of Systems Review of systems same as previous: Yes Physical Exam Height: 5 ft 8 in Weight: 220 lb Body Mass Index: 33.4 BMI Classification: Obese Impression and Plan IMPRESSION: 1. Obstructive Sleep Apnea-Hypopnea Syndrome, moderate, with the patient continuing to have [id number] compliance due to mask not fitting well and nose dryness. She does not know that she can adjust the heated humidifier setting. She said the durable medical supplier told her to not touch anything. The current pressure appears effective and comfortable. The patient will try to use her CPAP more often. We reviewed the Medicare compliance guidelines again. PLAN: 1. Continue with autoCPAP set at 10 - 15 cmH2O. 2. Try to lose weight 3. Try ResMed AirTouch F-20 full face mask. Prescription made. 4. Return in one month to recheck compliance (has until November 09 before having to return the CPAP). Visit Type: In Office Time Spent with Patient (minutes): 15 Provider Statement: I spent 100% of the Face to Face Visit with the patient with greater than 50% spent counseling the patient and coordination of care.
== END 2020-10-13 10:27 | disposition home or self-care (01) ==
LOC: SC 10:26
PROVIDERS: ATTEND Internal Medicine Pulmonary Disease
DX: G47.33 Obstructive sleep apnea (adult) (pediatric) (principal)
CPT/HCPCS: 99212; G0463

== ENCOUNTER 2020-11-12 14:07 | Outpatient (CLI) | payer MEDICARE, OTHER | END 2020-11-12 23:59 | disposition home or self-care (01) | LOC: LAB.R 14:07 | PROVIDERS: ATTEND Internal Medicine Hematology & Oncology | DX: D51.9 Vitamin B12 deficiency anemia, unspecified (principal) | CPT/HCPCS: 82270 ==

== ENCOUNTER 2020-11-26 11:18 | Outpatient (CLI) | payer MEDICARE, OTHER ==
--- NOTE | 2020-11-27 14:22 | Mammography Report ---
BILATERAL DIGITAL DIAGNOSTIC MAMMOGRAM 3D/2D: 11/26/2020 CLINICAL: Focal left breast pain. Comparison is made to exams dated: 08/17/2017 mammogram, 05/13/2014 mammogram - [facility], 02/03/2013 mammogram, 01/22/2012 mammogram, and 12/25/2010 [place] [facility] The tissue of right breast is heterogeneously dense. This may lower the sensitivity of mammography. There are scattered fibroglandular elements in left breast. No significant masses, calcifications, or other findings are seen in either breast. IMPRESSION: INCOMPLETE: NEEDS ADDITIONAL IMAGING EVALUATION No suspicious finding. Ultrasound of the palpable area of concern is recommended and has been schedul ed to follow. This exam was interpreted at Station ID: [id number]. NOTE: For mammograms, a report in lay terms will be sent to the patient. Approximately 15% of breast malignancies will not be visualized mammographically. In the management of a palpable breast mass, a negative mammogram must not discourage biopsy of a clinically suspicious lesion. Electronically Signed By: Flako Villatoro M.D. jr/:11/26/2020 12:40:30 ACR BI-RADS Category 0: Incomplete 3340F PARENCHYMAL PATTERN: (D) - The breast(s) demonstrate(s) heterogeneously dense fibroglandular [place] ma. BI-RADS CATEGORY: (0) - 0 RECOMMENDATION: (ADDMAM) - Recommend additional mammographic views. recall n/a LATERALITY: (B)
--- NOTE | 2020-11-27 14:22 | Ultrasound Report ---
LIMITED ULTRASOUND OF LEFT BREAST: 11/26/2020 CLINICAL: Palpable left breast lump felt by patient and pain. Comparison is made to exams dated: 11/26/2020 mammogram, 08/17/2017 mammogram, 05/13/2014 mammogram - [facility], 02/03/2013 mammogram, 01/22/2012 mammogram, and 12/25/2010 mammogram - [facility] [place]. Color flow and real-time ultrasound of the left breast 8 o'clock region were performed. Escobar scale images of the real-time examination were reviewed. IMPRESSION: NEGATIVE There is no sonographic evidence of malignancy. A 1 year screening mammogram is recommended. This exam was interpreted at Station ID: [id number]. Electronically Signed By: Flako Villatoro M.D., jr/micky:11/26/2020 12:40:51 Ultrasound BI-RADS: 1 Negative BI-RADS CATEGORY: (1) - 1 RECOMMENDATION: (ANNUAL) - Recommend routine annual screening mammography. [id number] 1 year screening LATERALITY: (B)
== END 2020-11-26 11:19 | disposition home or self-care (01) ==
LOC: DI 11:18
PROVIDERS: ATTEND Internal Medicine Hematology & Oncology
DX: N64.4 Mastodynia (principal); N63.24 Unspecified lump in the left breast, lower inner quadrant

== ENCOUNTER 2022-02-19 10:13 | Outpatient (CLI) | payer MEDICARE, OTHER | END 2022-02-19 10:14 | disposition critical access hospital (66) | LOC: EMS 10:13 | DX: R41.0 Disorientation, unspecified (principal); R53.83 Other fatigue | CPT/HCPCS: A0425; A0429 ==

== ENCOUNTER 2022-02-19 10:21 | Emergency (ER) | payer MEDICARE, OTHER ==
[2022-02-19] MEDS ORDERED: SODIUM CHLORIDE 0.9% 1,000 ML IV STA ×2 (10:32→11:00)
--- NOTE | 2022-02-19 10:35 | ED Physician Documentation ---
History of Present Illness - Stated complaint Stated Complaint: FEMALE - History obtained from History obtained from: Patient, EMS - Additonal information Additional information: 76-year-old woman presents by ambulance. She started to feel the onset of UTI about 4 days ago with dysuria and frequency. She has a as needed prescription that she keeps at home for Macrobid and is on day 4. She has not been able to sleep because of generalized discomfort and because of that is now feeling confused and out of it. She denies headaches or fevers. She is quite thirsty. She is diabetic and blood sugar prior to arrival was around 270. Review of Systems Ten Systems: 10 systems reviewed and negative Constitutional: denies: Fever, Chills Nose: reports: Reviewed and negative Cardiac: reports: Reviewed and negative Respiratory: reports: Reviewed and negative PD PAST MEDICAL HISTORY - Past Medical History Past Medical History: Yes Endocrine/Autoimmune: Type 2 diabetes - Present Medications Home Medications: Ambulatory Orders Medication Instructions Recorded Confirmed Albuterol Sulfate [Proair Hfa 1 - 2 puffs INH Q4H PRN 04/16/20 02/19/22 Inhaler] Aspirin [Adult Aspirin Regimen] 81 mg PO DAILY 04/16/20 02/19/22 Cholecalciferol (Vitamin D3) 400 unit PO DAILY 04/16/20 02/19/22 [Vitamin D3] Duloxetine HCl [Cymbalta] 60 mg PO DAILY 04/16/20 02/19/22 Fluticasone/Salmeterol [Advair 1 spray INH DAILY 04/16/20 02/19/22 100-50 Diskus] Gabapentin 600 mg PO BID 04/16/20 02/19/22 Insulin Aspart [Novolog] 20 unit SQ BID 04/16/20 02/19/22 Insulin Glargine [Lantus Solostar] 100 unit SUBQ DAILY 04/16/20 02/19/22 Levetiracetam [Keppra] 500 mg PO BID 04/16/20 02/19/22 Losartan [Cozaar] 50 mg PO DAILY 04/16/20 02/19/22 Metformin HCl 1,000 mg PO BID 04/16/20 02/19/22 Omeprazole 20 mg PO DAILY 04/16/20 02/19/22 diphenhydrAMINE [Benadryl] 25 mg PO ONCE 04/16/20 02/19/22 oxyCODONE ER [OxyCONTIN] 10 mg PO PRN PRN 04/16/20 02/19/22 Promethazine [Phenergan] 25 mg PO Q6HR 04/17/20 02/19/22 Morphine Sulfate [Ms Contin] 15 mg PO BID 11/03/20 02/19/22 Ciprofloxacin [Cipro] 250 mg PO Q12H #6 tablet 02/19/22 - Allergies Allergies/Adverse Reactions: Allergies Allergy/AdvReac Type Severity Reaction Status Date / Time Penicillins Allergy Severe Anaphylaxis Verified 02/19/22 10:38 doxycycline Allergy Rash Verified 02/19/22 10:38 tamsulosin [From Flomax] Allergy Rash Verified 02/19/22 10:38 - Living Situation Living Situation: reports: With family - Social History Does the pt drink ETOH?: No Does the pt have substance abuse?: No PD ED PE NORMAL - Vitals Vital signs reviewed: Yes - General General: Alert and oriented X 3, Other (Quite dry mucous membranes, alert and oriented, very slightly slow to answer questions.) - HEENT HEENT: PERRL, EOMI - Neck Neck: Supple, no meningeal sign, No bony TTP - Cardiac Cardiac: RRR, No murmur - Respiratory Respiratory: No respiratory distress, Other (Mild expiratory wheezing, history of asthma.) - Abdomen Abdomen: Soft, Non tender - Back Back: No CVA TTP, No spinal TTP - Derm Derm: Normal color, Warm and dry - Extremities Extremities: No edema, No calf tenderness / cord - Neuro Neuro: Alert and oriented X 3, Normal speech Results - Vitals Vitals: Vital Signs - 24 hr 02/19/22 02/19/22 02/19/22 10:34 10:50 12:57 Temperature 37.1 C Heart Rate 68 92 72 Respiratory 18 20 18 Rate Blood Pressure 158/63 H 151/61 H O2 Saturation 98 93 02/19/22 15:01 Temperature Heart Rate 75 Respiratory 18 Rate Blood Pressure 141/85 H O2 Saturation 94 Oxygen O2 Source [With Activity] Room air O2 Source Room air - Labs Labs: Laboratory Tests 02/19/22 02/19/22 02/19/22 10:44 10:44 10:44 WBC 5.4 RBC 4.25 Hgb 13.1 Hct 40.6 MCV 95.5 MCH 30.8 MCHC 32.3 RDW 12.4 Plt Count 173 MPV 10.5 Neut # (Auto) 3.0 Lymph # (Auto) 1.9 [place] # (Auto) 0.3 Eos # (Auto) 0.2 Baso # (Auto) 0.0 Absolute Nucleated RBC 0.00 Nucleated RBC % 0.0 Sodium 137 Potassium 4.3 Chloride 95 L Carbon Dioxide 27 Anion Gap 15.0 H BUN 25 H Creatinine 1.6 H Estimated GFR (MDRD) 32 L Glucose 342 H Lactic Acid 3.0 H* Calcium 10.7 H Magnesium 1.1 L Urine Color Urine Clarity Urine pH Ur Specific [place] Urine Protein Urine Glucose (UA) Urine Ketones Urine Occult Blood Urine Nitrite Urine Bilirubin Urine Urobilinogen Ur Leukocyte Esterase Urine RBC Urine WBC Ur Squamous Epith Cells Urine Bacteria Ur Microscopic Review Urine Culture Comments 02/19/22 02/19/22 02/19/22 14:23 14:44 14:44 WBC RBC Hgb Hct MCV MCH MCHC RDW Plt Count MPV Neut # (Auto) Lymph # (Auto) [place] # (Auto) Eos # (Auto) Baso # (Auto) Absolute Nucleated RBC Nucleated RBC % Sodium 135 Potassium 3.9 Chloride 96 L Carbon Dioxide 29 Anion Gap 10.0 BUN 23 H Creatinine 1.4 H Estimated GFR (MDRD) 37 L Glucose 299 H Lactic Acid 2.2 Calcium 9.6 Magnesium Urine Color YELLOW Urine Clarity CLEAR Urine pH 6.5 Ur Specific [place] 1.020 Urine Protein 30 H Urine Glucose (UA) >=1000 H Urine Ketones 15 H Urine Occult Blood NEGATIVE Urine Nitrite NEGATIVE Urine Bilirubin NEGATIVE Urine Urobilinogen 0.2 (NORMAL) Ur Leukocyte Esterase NEGATIVE Urine RBC None Seen Urine WBC 0-3 Ur Squamous Epith Cells RARE Squamous Urine Bacteria Rare Ur Microscopic Review INDICATED Urine Culture Comments NOT INDICATED PD MEDICAL DECISION MAKING - ED course ED course: 76-year-old woman with recent sensation of UTI on Macrobid presents with worsening symptoms and feeling encephalopathic. She was a little slow to answer questions and this resolved with the administration of IV fluids. Her urinalysis is cleared, but this may be fictitious due to the Macrobid and a higher to UTI still possibility so she is given few days of Cipro. She was eager to go home. Care was delayed by a delay to obtaining a urine sample. Departure - Departure Disposition: Home, Self Care Clinical Impression: Cystitis, Diabetes mellitus, insulin dependent (IDDM), uncontrolled, Dehydration Condition: Good Record reviewed to determine appropriate education?: Yes Instructions: ED UTI Cystitis Female Prescriptions: Ciprofloxacin [Cipro] 250 mg PO Q12H #6 tablet Comments: Drink plenty fluids. I sent your prescription electronically to the [facility] pharmacy at the corner of [address] [address] here in [place]. Call your doctor to arrange a follow-up appointment, make the next available appointment. In the interim, return anytime if worse or if new symptoms develop. Discharge Date/Time: 02/19/22 15:52
[2022-02-19] MEDS ORDERED: ALBUTEROL NEB 2.5 MG/3 ML INH STA (10:44)
[2022-02-19 10:48] LABS: BASOPHILS % (AUTO) 0.4 %; EOSINOPHILS # (AUTO) 0.2 10^3/uL (0.0-0.7); EOSINOPHILS % (AUTO) 3.5 %; HCT - HEMATOCRIT 40.6 % (37.0-47.0); HGB - HEMOGLOBIN 13.1 g/dL (12.0-16.0); LYMPHOCYTES # (AUTO) 1.9 10^3/uL (1.5-3.5); LYMPHOCYTES % (AUTO) 34.1 %; MEAN CORPUSCULAR HEMOGLOBIN 30.8 pg (27.0-31.0); MEAN CORPUSCULAR HGB CONC 32.3 g/dL (32.0-36.0); MEAN CORPUSCULAR VOLUME 95.5 fL (81.0-99.0); MEAN PLATELET VOLUME 10.5 fL (7.9-10.8); MONOCYTES # (AUTO) 0.3 10^3/uL (0.0-1.0); MONOCYTES % (AUTO) 5.9 %; NEUTROPHILS % (AUTO) 55.9 %; PLT - PLATELET COUNT 173 10^3/uL (130-450); RED BLOOD COUNT 4.25 10^6/uL (4.20-5.40); RED CELL DISTRIBUTION WIDTH 12.4 % (12.0-15.0); WHITE BLOOD COUNT 5.4 x10^3/uL (4.8-10.8)
[2022-02-19 10:58] LABS: CALCIUM 10.7 mg/dL (8.5-10.3); CREATININE 1.6 mg/dL (0.4-1.0); MAGNESIUM 1.1 mg/dL (1.7-2.8); POTASSIUM 4.3 mmol/L (3.5-5.0)
[2022-02-19] MEDS ORDERED: ALBUTEROL NEB 2.5 MG/3 ML INH ONE (10:59)
[2022-02-19] MEDS ORDERED: INSULIN REGULAR HUMAN 100 UNIT/1 ML 10 ML MDV IVP STA (11:00)
[2022-02-19 14:28] LABS: BILIRUBIN,URINE NEGATIVE (NEGATIVE); GLUCOSE, URINE (UA) >=1000 mg/dL (NEGATIVE); KETONES,URINE (UA) 15 mg/dL (NEGATIVE); LEUKOCYTE ESTERASE, URINE NEGATIVE (NEGATIVE); NITRITE,URINE NEGATIVE (NEGATIVE); OCCULT BLOOD,URINE NEGATIVE (NEGATIVE); PH,URINE 6.5 PH (5.0-7.5); PROTEIN,URINE 30 mg/dL (NEGATIVE); UROBILINOGEN,URINE 0.2 (NORMAL) E.U./dL (NORMAL)
[2022-02-19 14:29] LABS: CLARITY,URINE CLEAR (CLEAR)
[2022-02-19 14:41] LABS: BACTERIA,URINE Rare /HPF (None Seen); RBC,URINE None Seen /HPF (0-5); SQUAMOUS EPITHELIAL CELL,UR RARE Squamous (<= Few); WBC,URINE 0-3 /HPF (0-5)
[2022-02-19] MEDS ORDERED: CIPROFLOXACIN 250 MG TABLET PO STA (14:50)
[2022-02-19 14:59] LABS: CALCIUM 9.6 mg/dL (8.5-10.3); CREATININE 1.4 mg/dL (0.4-1.0); POTASSIUM 3.9 mmol/L (3.5-5.0)
[2022-02-19 15:02] VITALS: BP 141/85
== END 2022-02-19 15:52 | disposition home or self-care (01) ==
LOC: EDUNIT# → ED 10:21
DX: N30.90 Cystitis, unspecified without hematuria (principal); E86.0 Dehydration; E11.65 Type 2 diabetes mellitus with hyperglycemia; Z79.4 Long term (current) use of insulin
CPT/HCPCS: 36415; 80048; 81001; 83605; 83735; 85025; 94640; 96360; 96361; 99283; 99284; A9270; J1815; 81003; 87086

== ENCOUNTER 2023-02-06 14:28 | Observation (INO) | payer MEDICARE, OTHER ==
--- NOTE | 2023-02-06 14:40 | ED Physician Documentation ---
PD HPI FOCAL NEURO - Stated complaint Stated Complaint: SHAKEY/WEAKNESS - History obtained from History obtained from: Patient - Additional information Additional information: 77-year-old woman with history of type 2 diabetes and TIA on aspirin developed clumsiness and weakness in the left hand and difficulty walking at 2 PM today. Denies headache. At baseline has some mobility problems and walks with either a cane or a walker. PD PAST MEDICAL HISTORY - Past Medical History Cardiovascular: Hypertension, High cholesterol Respiratory: Asthma Neuro: Seizure disorder Endocrine/Autoimmune: Type 2 diabetes GI: GERD : Incontinence Psych: Depression Musculoskeletal: Chronic back pain - Past Surgical History Past Surgical History: Yes General: Cholecystectomy, Appendectomy Ortho: Knee replacement HEENT: Tonsil/Adenoidectomy - Present Medications Home Medications: Ambulatory Orders Medication Instructions Recorded Confirmed Albuterol Sulfate [Proair Hfa 1 - 2 puffs INH Q4H PRN 04/16/20 02/19/22 Inhaler] Aspirin [Adult Aspirin Regimen] 81 mg PO DAILY 04/16/20 02/19/22 Cholecalciferol (Vitamin D3) 400 unit PO DAILY 04/16/20 02/19/22 [Vitamin D3] Duloxetine HCl [Cymbalta] 60 mg PO DAILY 04/16/20 02/19/22 Fluticasone/Salmeterol [Advair 1 spray INH DAILY 04/16/20 02/19/22 100-50 Diskus] Gabapentin 600 mg PO BID 04/16/20 02/19/22 Insulin Aspart [Novolog] 20 unit SQ BID 04/16/20 02/19/22 Insulin Glargine [Lantus Solostar] 100 unit SUBQ DAILY 04/16/20 02/19/22 Levetiracetam [Keppra] 500 mg PO BID 04/16/20 02/19/22 Losartan [Cozaar] 50 mg PO DAILY 04/16/20 02/19/22 Metformin HCl 1,000 mg PO BID 04/16/20 02/19/22 Omeprazole 20 mg PO DAILY 04/16/20 02/19/22 diphenhydrAMINE [Benadryl] 25 mg PO ONCE 04/16/20 02/19/22 oxyCODONE ER [OxyCONTIN] 10 mg PO PRN PRN 04/16/20 02/19/22 Promethazine [Phenergan] 25 mg PO Q6HR 04/17/20 02/19/22 Morphine Sulfate [Ms Contin] 15 mg PO BID 11/03/20 02/19/22 Ciprofloxacin [Cipro] 250 mg PO Q12H #6 tablet 02/19/22 - Allergies Allergies/Adverse Reactions: Allergies Allergy/AdvReac Type Severity Reaction Status Date / Time Penicillins Allergy Severe Anaphylaxis Verified 02/06/23 14:43 doxycycline Allergy Rash Verified 02/06/23 14:43 tamsulosin [From Flomax] Allergy Rash Verified 02/06/23 14:43 - Social History Does the pt smoke?: No Smoking Status: Former smoker Does the pt drink ETOH?: No Does the pt have substance abuse?: No - Immunizations Immunizations are current?: Yes - POLST Patient has POLST: No PD ED PE NORMAL - Vitals Vital signs reviewed: Yes - General General: Other (Slightly delayed answers to questions. Does not know the date.) - HEENT HEENT: PERRL, EOMI, Other (Mild left facial droop) - Neck Neck: Supple, no meningeal sign, No bony TTP - Cardiac Cardiac: RRR, No murmur - Respiratory Respiratory: No respiratory distress, Clear bilaterally - Abdomen Abdomen: Non tender - Neuro Eye Opening: Spontaneous Motor: Obeys Commands Verbal: Confused (Slightly) GCS Score: 14 NIHSS - Time Time: 14:35 - Level of Consciousness Level of consciousness: (0) Alert, Keenly responsive LOC Questions: (2) Answers neither correct (Will not state the month. States the year is 1944 but seems to recognize that answer is incorrect) LOC Commands: (0) Performs both correctly - Gaze Best Gaze: (0) Normal - Visual Visual: (0) No loss - Facial Palsy Facial Palsy: (1) Minor paralysis (Left) - Motor Arms (both separate) Motor Arm (right): (0) No drift Motor Arm (left): (0) No drift - Motor Legs (both separate) Motor Leg (right): (0) No drift Motor Leg (left): (1) Drift - Limb Ataxia Limb Ataxia: (0) Absent - Sensory Sensory: (0) Normal - Best Language Best Language: (1) [id number] - Dysarthria Dysarthria: (0) Normal - Extinction and Inattention (formally neg Extinction and inattention: (0) No abnormality - Total Score/Results Total Score/Result: 5 Results - Vitals Vitals: Vital Signs - 24 hr 02/06/23 02/06/23 02/06/23 14:36 15:35 15:46 Temperature 37.0 C Heart Rate 89 80 Respiratory 16 12 Rate Blood Pressure 138/65 H 121/59 L O2 Saturation 94 85 L 97 If not protocol 2 : Oxygen Flow, liters/minute Oxygen O2 Source [] Room air O2 Source Nasal cannula Oxygen Flow Rate 2 - EKG (time done) 1438 EKG releavant findings:: EKG personally interpreted by author of this note. Relevant findings are: Rate: Rate (enter#) (80) Rhythm: NSR [place]: Normal Intervals: Prolonged CT QRS: Low voltage Ischemia: Non specific changes (Flat T waves throughout) Computer interpretation: Disagree with computer - Labs Labs: Laboratory Tests 02/06/23 02/06/23 02/06/23 14:38 14:40 14:40 WBC 9.7 RBC 4.22 Hgb 13.0 Hct 40.4 MCV 95.7 MCH 30.8 MCHC 32.2 RDW 12.6 Plt Count 201 MPV 10.5 Neut # (Auto) 6.8 H Lymph # (Auto) 2.3 Mcculloch # (Auto) 0.5 Eos # (Auto) 0.1 Baso # (Auto) 0.0 Absolute Nucleated RBC 0.00 Nucleated RBC % 0.0 PT 12.5 INR 1.1 Sodium Potassium Chloride Carbon Dioxide Anion Gap BUN Creatinine Estimated GFR (MDRD) Glucose POC Whole Bld Glucose 227 H Calcium Total Bilirubin AST ALT Alkaline Phosphatase B-Natriuretic Peptide Total Protein Albumin Globulin Albumin/Globulin Ratio Lipase 02/06/23 02/06/23 14:40 14:40 WBC RBC Hgb Hct MCV MCH MCHC RDW Plt Count MPV Neut # (Auto) Lymph # (Auto) Mcculloch # (Auto) Eos # (Auto) Baso # (Auto) Absolute Nucleated RBC Nucleated RBC % PT INR Sodium 136 Potassium 5.0 Chloride 99 L Carbon Dioxide 25 Anion Gap 12.0 BUN 42 H Creatinine 3.0 H Estimated GFR (MDRD) 15 L Glucose 237 H POC Whole Bld Glucose Calcium 8.5 Total Bilirubin 1.1 H AST 39 ALT 19 Alkaline Phosphatase 38 L B-Natriuretic Peptide 13 Total Protein 7.8 Albumin 4.3 Globulin 3.5 Albumin/Globulin Ratio 1.2 Lipase 26 - Rads (name of study) CT of the head and CT angiography of the head were negative for findings of stroke or significant vascular disease. Relevant Findings:: Final report received, EMP independent interpretation of test Single view chest x-ray is unremarkable, CT angiography of the neck is unremarkable. Relevant Findings:: Final report received, EMP independent interpretation of test PD Medical Decision Making - ED course ED course: 77-year-old woman presents with strokelike symptoms very acutely. Went directly over to CT, plain CT showing no contraindication to tPA. Seen by her telestrok e colleague who does not recommend tPA, at that time her exam was improving with an NIH stroke scale of 1. She does recommend loading her with Plavix, 300 mg. MRI tomorrow. If MRI negative increasing her Keppra to 750 mg p.o. twice daily. On return from CT the RN noted that her room air saturation was 85% or so on room air. Patient was reexamined. She had no shortness of breath. States she does have a history of asthma but currently is not wheezing in her lungs are clear with potentially some very mild rales at both bases. About that time her labs came back notable for a normal CBC, normal INR, and CMP notable for acute on chronic kidney injury. Last creatinine was 1.4 about a year ago. A chest x- ray and BNP were ordered and she was placed on 2 L nasal cannula. Her chest x-ray was normal and her BNP was negative. Given the AKREN we will hydrate her, she had already received CT contrast on initial evaluation per routine local stroke protocol. She was taken off the supplemental oxygen and her hypoxemia did not recur. Spoke with Dr. Rivas for observation at 4:36 PM. Departure - Departure Disposition: ED Place in Observation Clinical Impression: Cerebrovascular accident (CVA), KAREN (acute kidney injury), Diabetes mellitus, insulin dependent (IDDM), uncontrolled, Seizure disorder Condition: Serious
[2023-02-06] MEDS ORDERED: DEXTROSE 10% 1,000 ML IV STA (14:45)
[2023-02-06 14:48] LABS: BASOPHILS % (AUTO) 0.3 %; EOSINOPHILS # (AUTO) 0.1 10^3/uL (0.0-0.7); EOSINOPHILS % (AUTO) 1.4 %; HCT - HEMATOCRIT 40.4 % (37.0-47.0); LYMPHOCYTES # (AUTO) 2.3 10^3/uL (1.5-3.5); LYMPHOCYTES % (AUTO) 23.3 %; MEAN CORPUSCULAR HEMOGLOBIN 30.8 pg (27.0-31.0); MEAN CORPUSCULAR HGB CONC 32.2 g/dL (32.0-36.0); MEAN CORPUSCULAR VOLUME 95.7 fL (81.0-99.0); MEAN PLATELET VOLUME 10.5 fL (7.9-10.8); MONOCYTES # (AUTO) 0.5 10^3/uL (0.0-1.0); MONOCYTES % (AUTO) 4.7 %; NEUTROPHILS # (AUTO) 6.8 10^3/uL (1.5-6.6); NEUTROPHILS % (AUTO) 70.1 %; PLT - PLATELET COUNT 201 10^3/uL (130-450); RED BLOOD COUNT 4.22 10^6/uL (4.20-5.40); RED CELL DISTRIBUTION WIDTH 12.6 % (12.0-15.0); WHITE BLOOD COUNT 9.7 x10^3/uL (4.8-10.8)
[2023-02-06 15:00] LABS: INR 1.1 (0.8-1.2); PT - PROTHROMBIN TIME 12.5 secs (9.9-12.6)
[2023-02-06 15:02] LABS: ALBUMIN 4.3 g/dL (3.2-5.5); ALBUMIN/GLOBULIN RATIO 1.2 (1.0-2.2); BILIRUBIN,TOTAL 1.1 mg/dL (0.2-1.0); CALCIUM 8.5 mg/dL (8.5-10.3); TOTAL PROTEIN 7.8 g/dL (6.7-8.2)
--- NOTE | 2023-02-06 15:12 | CT Report ---
PROCEDURE: Head W/O Stroke Protocol INDICATIONS: Neuro deficit, acute, stroke suspected TECHNIQUE: Noncontrast 4.5 mm thick angled axial sections acquired from the foramen magnum to the vertex, with c oronal reformats. For radiation dose reduction, the following was used: automated exposure control, adjustment of mA and/or kV according to patient size. COMPARISON: 07/30/2018 FINDINGS: Image quality: Slightly limited given technique with mottling and streak artifact at the skull base. CSF spaces: Basal cisterns are patent. No extra-axial fluid collections. Ventricles are normal in size and shape. Brain: No midline shift. No intracranial masses or hemorrhage. Escobar-white matter interface is norm al. Scattered regions of deep and superficial white matter hypoattenuation most prominent within the periventricular white matter. Vascular calcifications within the proximal intracranial vasculature. Skull and face: Calvarium and visualized facial bones are intact, without suspicious lesions. Sinuses: Visualized sinuses and mastoids are clear. IMPRESSION: Findings consistent with microvascular ischemic changes without acute transcortical infarction or acu te intracranial hemorrhage. Findings discussed at approximately 1405 hours [place] standard time with the ordering physician Dr. Samina garcia by Dr. Duane Landin over the telephone. This study fulfills neurological imaging criteria for inclusion or exclusion of acute stroke therapie s based on available published neurological imaging guidelines. Reviewed by: Duane Landin DO on 02/06/2023 2:11 PM [facility] Approved by: Duane Landin DO on 02/06/2023 2:11 PM [facility]AB[facility] Station ID: [id number]
[2023-02-06] MEDS ORDERED: CLOPIDOGREL 300 MG TABLET PO STA (15:18)
--- NOTE | 2023-02-06 15:47 | CT Report ---
PROCEDURE: ANGIO HEAD W/WO INDICATIONS: cva sx CONTRAST: 80ml omni 350 TECHNIQUE: After the administration of intravenous contrast, 1 mm thick sections acquired through the [place] of [place]. Postcontrast 4.5 mm thick sections then re-acquired from the foramen magnum to the vertex. 3-dimensional qjeekzs-oajtihltm-ysrozblblo (MIP) and/or volume rendering reformats were acquired of t he central intracranial vasculature. For radiation dose reduction, the following was used: automate d exposure control, adjustment of mA and/or kV according to patient size. COMPARISON: 07/30/2018 FINDINGS: Image quality: Excellent. Anterior circulation: Intracranial internal carotid arteries are normal in size and flow. The flow within the paired anterior cerebral arteries is normal and symmetric. The flow within the middle cer ebral arteries is normal and symmetric. The anterior communicating artery is seen. No aneurysms are seen. Posterior circulation: Visualized portions of the vertebral arteries demonstrate normal caliber, and join to form a normal appearing basilar artery. Flow within the posterior cerebral arteries is norm al and symmetric. No aneurysms are seen. CSF spaces: Ventricles are normal in size and shape. Basal cisterns are patent. No extra-axial flu id collections. Brain: No suspicious enhancement. Skull and face: Calvarium and facial bones appear intact, without suspicious lesions. Sinuses: Mild mucosal thickening in the inferior aspect of the maxillary sinuses. IMPRESSION: No significant stenosis, occlusion, or aneurysmal formation of the intracranial vasculature. Reviewed by: Duane Landin DO on 02/06/2023 2:46 PM [facility] Approved by: Duane Landin DO on 02/06/2023 2:46 PM [place] Station ID: [id number]
--- NOTE | 2023-02-06 15:52 | CT Report ---
PROCEDURE: ANGIO NECK W INDICATIONS: cva sx CONTRAST: 80ml omni 350 TECHNIQUE: After the administration of intravenous contrast, 1.5 mm axial sections acquired from the aortic arch to the [place] of [place]. Coronal 3-D maximum intensity projection (MIP) and/or volume rendering ref ormats were then performed. For radiation dose reduction, the following was used: automated exposur e control, adjustment of mA and/or kV according to patient size. COMPARISON: None. FINDINGS: Image quality: Excellent. Carotid system: The great vessels demonstrate a conventional anatomy as they arise from the aortic a rch. The origins of the common carotid arteries appear patent. The common carotid arteries demonstr ate normal calibers and courses. The bifurcation regions appear normal bilaterally. The internal ca rotid arteries demonstrate normal caliber and course. Posterior circulation: The origins of the vertebral arteries appear patent. The more superior porti ons of the vertebral arteries demonstrate normal course and caliber. They join to form a normal appe aring basilar artery. Soft tissues: Visualized neck soft tissues demonstrate no suspicious abnormalities. Thyroid is slig htly heterogeneous in appearance with multiple subcentimeter thyroid nodules. Bones: No suspicious bony lesions. Visualized cervical spine appears normally aligned. Advanced d egenerative changes of the cervical spine was predominantly from C5-C6 and C6-C7. Multiple levels of mild spinal canal stenosis and varying degrees of mild-moderate neural foraminal stenosis. IMPRESSION: No significant stenosis, occlusion, or other vascular abnormality of the cervical vasculature. The estimate of stenosis included in the report of the imaging study was calculated using the NASCET method Reviewed by: Duane Landin DO on 02/06/2023 2:50 PM [facility] Approved by: Duane Landin DO on 02/06/2023 2:50 PM [facility] Station ID: [id number]
--- NOTE | 2023-02-06 15:52 | XRAY Report ---
PROCEDURE: Chest 1 View X-Ray INDICATIONS: hypoxemia TECHNIQUE: One view of the chest was acquired. COMPARISON: None. FINDINGS: Surgical changes and devices: None. Overlying EKG wires. Lungs and pleura: No pleural effusions or pneumothorax. Lungs are clear. Mediastinum: Mediastinal contours appear normal. Heart size is normal. Bones and chest wall: No suspicious bony lesions. Overlying soft tissues appear unremarkable. IMPRESSION: No acute cardiopulmonary process. Reviewed by: Duane Landin DO on 02/06/2023 2:51 PM [facility]ETH Approved by: Duane Landin DO on 02/06/2023 2:51 PM [place] Station ID: [id number]
[2023-02-06] MEDS ORDERED: SODIUM CHLORIDE 0.9% 1,000 ML IV STA (16:27)
[2023-02-06] MEDS ORDERED: ONDANSETRON 4 MG/2 ML VIAL IVP PRN (16:56)
[2023-02-06] MEDS ORDERED: SODIUM CHLORIDE FLUSH 0.9% 10 ML SYRINGE IVP PRN (16:56)
--- NOTE | 2023-02-06 17:08 | HISTORY & PHYSICAL EXAMINATION ---
Chief Complaint - Chief Complaint Chief Complaint: Left-sided weakness History of Present Illness - Admitted From Admitted From:: ED - History Obtained From History obtained from: ED provider and the patient - History of Present Illness HPI Comment/Other: This is a 77-year-old female with a history of diabetes mellitus insulin, B12 and Iron deficiency, partial complex seizures on Keppra, prior TIAs, sleep apnea who does not usually use her nightly CPAP. Patient presented in POV complaining of left-sided weakness and said she thought she was having a stroke. She said she dropped a mug that was in her left hand. She usually can walk with a cane and today walking was more difficult. She described word finding difficulty. In the ED she did have left-sided facial droop and left leg drift and left arm weakness. She underwent a CT of the head and CTA of head and neck. These were unremarkable except for ischemic findings consistent with her age. She underwent a Telestroke consultation. By that time all her symptoms had resolved. The patient was already taking aspirin therefore the Telestroke neurologist recommended she be Plavix loaded and to take Plavix daily for 21 days and to have an MRI tomorrow. Neurologist also said that if the MRI is negative to increase her Keppra dose from 500 twice daily to 750 twice daily. The ED provider spoke to me about this patient. She will be placed in Observation status to evaluate her TIA. Patient herself thinks she had a seizure and had already been hoping to try to get off the Keppra but understands that it needs to continue. During her stay in the ED she was noted to have an O2 saturation on room air of 85%. She was reevaluated, had clear lungs, BNP of 13 and a chest x-ray was unremarkable. She was put on oxygen but then when oxygen was removed the saturation remained normal. The patient's lab work was remarkable for a creatinine of 3.0, her last creatinine 1 year ago was 1.4. IV fluids were started in the ED. I discussed her CODE BLUE wishes and she wants to be a Full Code. History - Past Medical History Cardiovascular: reports: Hypertension, High cholesterol Respiratory: reports: Asthma, Sleep apnea Neuro: reports: Seizure disorder Endocrine/Autoimmune: reports: Type 2 diabetes GI: reports: GERD : reports: Incontinence Psych: reports: Depression Musculoskeletal: reports: Chronic back pain MRSA Hx?: No - Past Surgical History General: reports: Cholecystectomy, Appendectomy Ortho: reports: Knee replacement HEENT: reports: Tonsil/Adenoidectomy - Family & Social History Living arrangement: At home Living Situation: With family Social History Notes: Patient is a retired nurse. She does not drive ever since having seizures.. She lives with her brother and [id number], in an attached but separate dwelling. She reports that she is able to care for herself and self-administers her medications. - Substance History Use: Uses substance without health or social issues: NONE - POLST Patient has POLST: No Meds/Allgy - Home Medications Home Medications: Ambulatory Orders Medication Instructions Recorded Confirmed Albuterol Sulfate [Proair Hfa 1 - 2 puffs INH Q4H PRN 04/16/20 02/19/22 Inhaler] Aspirin [Adult Aspirin Regimen] 81 mg PO DAILY 04/16/20 02/19/22 Cholecalciferol (Vitamin D3) 400 unit PO DAILY 04/16/20 02/19/22 [Vitamin D3] Duloxetine HCl [Cymbalta] 60 mg PO DAILY 04/16/20 02/19/22 Fluticasone/Salmeterol [Advair 1 spray INH DAILY 04/16/20 02/19/22 100-50 Diskus] Gabapentin 600 mg PO BID 04/16/20 02/19/22 Insulin Aspart [Novolog] 20 unit SQ BID 04/16/20 02/19/22 Insulin Glargine [Lantus Solostar] 100 unit SUBQ DAILY 04/16/20 02/19/22 Levetiracetam [Keppra] 500 mg PO BID 04/16/20 02/19/22 Losartan [Cozaar] 50 mg PO DAILY 04/16/20 02/19/22 Metformin HCl 1,000 mg PO BID 04/16/20 02/19/22 Omeprazole 20 mg PO DAILY 04/16/20 02/19/22 diphenhydrAMINE [Benadryl] 25 mg PO ONCE 04/16/20 02/19/22 oxyCODONE ER [OxyCONTIN] 10 mg PO PRN PRN 04/16/20 02/19/22 Promethazine [Phenergan] 25 mg PO Q6HR 04/17/20 02/19/22 Morphine Sulfate [Ms Contin] 15 mg PO BID 11/03/20 02/19/22 Ciprofloxacin [Cipro] 250 mg PO Q12H #6 tablet 02/19/22 - Allergies Allergies/Adverse Reactions: Allergies Allergy/AdvReac Type Severity Reaction Status Date / Time Penicillins Allergy Severe Anaphylaxis Verified 02/06/23 14:43 doxycycline Allergy Rash Verified 02/06/23 14:43 tamsulosin [From Flomax] Allergy Rash Verified 02/06/23 14:43 Review of Systems - Constitutional Constitutional: reports: Weakness - Endocrine Endocrine: reports: Other (She does fingerstick checks twice a day) - All Other Systems All Other Systems: reports: Reviewed and negative Exam - Vital Signs Vital Signs: Vital Signs x48h Temp Pulse Resp BP Pulse Ox O2 Flow Rate 02/06/23 16:44 74 14 136/75 H 92 2 02/06/23 15:46 80 12 121/59 L 97 2 02/06/23 15:35 85 L 02/06/23 14:36 37.0 C 89 16 138/65 H 94 - Physical Exam General Appearance: positive: No acute distress, Alert Eyes Bilateral: positive: Normal inspection, EOMI ENT: positive: ENT inspection nml, No signs of dehydration Neck: positive: Nml inspection, No JVD Respiratory: positive: No respiratory distress, Breath sounds nml Cardiovascular: positive: Regular rate & rhythm, No murmur Abdomen: positive: Non-tender, Nml bowel sounds, No distention Skin: positive: Warm, Dry Extremities: positive: Non-tender, No pedal edema Neurologic/Psychiatric: positive: Oriented x3, Motor nml Conclusion/Plan - Problem List (1) TIA (transient ischemic attack) Conclusion/Plan: The patient had left-sided facial droop, left arm and leg weakness and these resolved while in the ED. The impression by the telestroke neurologist was a TIA and she was advised to be placed in observation Plan: We will monitor for A-fib on telemetry Neurochecks every 4 hours Brain MRI (today is Tuesday and we have no MRI here until tomorrow). Swallowing screen by nursing before diet is started PT and OT evaluations tomorrow, if there is any recurrence of her neurodeficits Continue with 1 baby aspirin daily lifelong and Plavix 75 mg daily for 21 days I will check a fasting lipid panel and treat per guidelines. (2) Seizure disorder Conclusion/Plan: Plan: She will be kept on her Keppra 500 twice daily As per the telestroke neurologist recommendations, if the eye MRI does not show any acute stroke then her Keppra dose will be increased to 750 twice daily tomorrow (3) Diabetes mellitus type 2, insulin dependent Conclusion/Plan: Her admission spot glucose level is 220 Plan: We will order a diabetic diet, sliding scale insulin for fingerstick Accu-Chek coverage, hypoglycemia protocol Check A1c with morning labs. We will continue with her usual insulin and diabetic meds once her med list is reconciled by pharmacy. (4) Acute kidney injury superimposed on CKD Conclusion/Plan: In the past her creatinine ran 1-1.4 (her EMR was reviewed). Today her admission creatinine is 3. This may be from dehydration vs CKD from diabetes. She got an IV dye load when she underwent her CTA of head and neck today. She may have worsening of her creatinine therefore. Plan: Continue with IV hydration which was started in the ED Avoid nephrotoxins Follow BMP daily - Lab Results Fish Bones: 02/06/23 14:40 02/06/23 14:40 - Diagnostic Imaging Results Diagnostic Imaging Results: positive: Final report reviewed - EKG Results EKG Interpreted Independently: Yes EKG Findings: NSR, borderline first-degree block, diffusely flat T waves. Since her EKG from 2019, the flat T waves are new.
[2023-02-06] MEDS: SODIUM CHLORIDE FLUSH 0.9% 10 ML SYRINGE IVP SCH ×2 (17:39→20:19)
[2023-02-06] MEDS: SODIUM CHLORIDE 0.9% 1,000 ML IV SCH (17:39)
[2023-02-06 17:49] LABS: BILIRUBIN,URINE NEGATIVE (NEGATIVE); CLARITY,URINE HAZY (CLEAR); GLUCOSE, URINE (UA) NEGATIVE (NEGATIVE); KETONES,URINE (UA) NEGATIVE (NEGATIVE); LEUKOCYTE ESTERASE, URINE NEGATIVE (NEGATIVE); NITRITE,URINE NEGATIVE (NEGATIVE); OCCULT BLOOD,URINE NEGATIVE (NEGATIVE); PROTEIN,URINE 30 mg/dL (NEGATIVE); UROBILINOGEN,URINE 0.2 (NORMAL) E.U./dL (NORMAL)
[2023-02-06 18:01] LABS: AMORPHOUS SEDIMENT,UR Rare /LPF; BACTERIA,URINE Few /HPF (None Seen); RBC,URINE 0-5 /HPF (0-5); SQUAMOUS EPITHELIAL CELL,UR FEW Squamous (<= Few)
[2023-02-06] MEDS: INSULIN LISPRO 300 UNIT/3 ML PEN SUBQ SCH ×2 (20:17→20:18)
[2023-02-06] MEDS: levETIRAcetam 250 MG TABLET PO SCH (20:19)
[2023-02-07] MEDS: ACETAMINOPHEN 325 MG TABLET PO PRN ×4 (00:57→14:46)
[2023-02-07] MEDS ORDERED: oxyCODONE 5 MG TABLET PO PRN ×2 (01:26→12:20)
[2023-02-07] MEDS ORDERED: LIDOCAINE PATCH 5% TOP PRN (01:32)
[2023-02-07] MEDS: oxyCODONE 5 MG TABLET PO PRN ×2 (02:01→09:30)
[2023-02-07] MEDS: SODIUM CHLORIDE 0.9% 1,000 ML IV SCH ×2 (04:28→14:45)
[2023-02-07 05:47] LABS: BASOPHILS % (AUTO) 0.4 %; EOSINOPHILS # (AUTO) 0.2 10^3/uL (0.0-0.7); EOSINOPHILS % (AUTO) 3.4 %; HCT - HEMATOCRIT 32.7 % (37.0-47.0); HGB - HEMOGLOBIN 10.6 g/dL (12.0-16.0); LYMPHOCYTES # (AUTO) 1.9 10^3/uL (1.5-3.5); LYMPHOCYTES % (AUTO) 35.1 %; MEAN CORPUSCULAR HGB CONC 32.4 g/dL (32.0-36.0); MEAN CORPUSCULAR VOLUME 95.6 fL (81.0-99.0); MEAN PLATELET VOLUME 10.7 fL (7.9-10.8); MONOCYTES # (AUTO) 0.3 10^3/uL (0.0-1.0); MONOCYTES % (AUTO) 6.2 %; NEUTROPHILS % (AUTO) 54.5 %; PLT - PLATELET COUNT 139 10^3/uL (130-450); RED BLOOD COUNT 3.42 10^6/uL (4.20-5.40); RED CELL DISTRIBUTION WIDTH 12.7 % (12.0-15.0); WHITE BLOOD COUNT 5.5 x10^3/uL (4.8-10.8)
[2023-02-07 05:57] LABS: CALCIUM 8.1 mg/dL (8.5-10.3); CREATININE 2.3 mg/dL (0.4-1.0); POTASSIUM 4.6 mmol/L (3.5-5.0)
[2023-02-07 06:05] LABS: CHOL/HDL RATIO 4.4 (<4.4); CHOLESTEROL 109 mg/dL; HDL CHOLESTEROL 25 mg/dL; LDL CHOLESTEROL,CALCULATED 20 mg/dL; LDL/HDL RATIO 0.8 (<4.4); TRIGLYCERIDES 322 mg/dL; VLDL CHOLESTEROL 64 mg/dL
[2023-02-07] MEDS: INSULIN LISPRO 300 UNIT/3 ML PEN SUBQ SCH ×4 (07:59→17:32)
[2023-02-07] MEDS ORDERED: ASPIRIN EC 81 MG TABLET PO SCH (09:00)
[2023-02-07] MEDS ORDERED: CLOPIDOGREL 75 MG TABLET PO SCH (09:00)
[2023-02-07] MEDS: levETIRAcetam 250 MG TABLET PO SCH (09:30)
[2023-02-07] MEDS: SODIUM CHLORIDE FLUSH 0.9% 10 ML SYRINGE IVP SCH ×2 (09:32→17:32)
--- NOTE | 2023-02-07 12:03 | PHARMACY PROGRESS NOTE ---
- Best Possible Medication History Admit Date and Time: 02/06/23 9800 Processed by: Pharmacy Medication History completed: Yes Patient Interview: Completed Secondary Source(s): Physician records (Fax from [facility] with active medications), Insurance records Discrepancy in insulin dosing between records at [facility] (which lists Insulin NPH 100 units once a day and sliding scale) and what patient reports taking at home. Patient says she buys OTC insulin from [employer] - Novolin N 90 units at night and Novolin R 10 units in the morning and at night along with sliding scale with meals. Med list updated based on patient's report for what she is currently using. As the person ultimately responsible for medication therapy, providers are able to order a medication from an existing home medication list in [facility] via the "Reconcile Routine" prior to Confirmation of that medication by ground crewman mission support. Such practice is discouraged except when the physician, in their clinical judgment, deems that a medical need exists for a medication without regard to previous use.
[2023-02-07] MEDS ORDERED: IPRATROPIUM/ALBUTEROL 3 ML NEB INH PRN (12:55)
[2023-02-07] MEDS ORDERED: SOLIFENACIN SUCCINATE 5 MG TABLET PO SCH (13:00)
[2023-02-07] MEDS ORDERED: GABAPENTIN 300 MG CAPSULE PO SCH ×2 (13:00→21:00)
[2023-02-07 14:31] LABS: ESTIMATED AVERAGE GLUCOSE 177 mg/dL (70-100); HEMOGLOBIN A1c% 7.8 % (4.27-6.07)
--- NOTE | 2023-02-07 16:43 | MRI Report ---
PROCEDURE: BRAIN WO INDICATIONS: Stroke-like symptoms TECHNIQUE: Noncontrast axial T1 spin echo, axial T2 fast spin echo, sagittal and axial FLAIR, coronal T2 fast sp in echo, axial gradient echo, axial diffusion and ADC through the brain. COMPARISON: CT had dated 02/06/2023, CT angiogram of the head and neck dated 02/06/2023, brain MRI dated 07/31/2018 FINDINGS: Image quality: Excellent. CSF Spaces: Basal cisterns are patent. No extra-axial fluid collections. Ventricles are normal in size and shape. Brain: No intracranial masses or hemorrhage. Escobar/white matter interface is normal. Brainstem appe ars normal. Diffusion-weighted images demonstrate no acute ischemic insult. No chronic ischemic ins ults. Age-related volume loss and mild to moderate small vessel ischemic change. Normal intravascular flow voids are present. Skull and face: Calvarium has normal marrow signal. Orbits appear normal. Sinuses: Sinuses and mastoids are clear. IMPRESSION: 1. Age-related volume loss and mild to moderate small vessel ischemic change. 2. No acute intracranial process. Reviewed by: Terry Lambert MD on 02/07/2023 4:42 PM PDT Approved by: Terry Lambert MD on 02/07/2023 4:42 PM PDT Station ID: [id number]
--- NOTE | 2023-02-07 18:33 | Discharge Plan ---
Discharge Plan Problem Reviewed?: Yes Disposition: Home, Self Care Condition: Stable Prescriptions: Levetiracetam [Keppra Xr] 750 mg PO BID #60 tab Diet: Diabetic Activity Restrictions: Activity as Tolerated Shower Restrictions: No Weight Bearing: Full Weight Health Concerns: You were hospitalized to evaluate a neurologic change, which could have been a stroke. The CT scan was negative yesterday and today the MRI was available and your brain MRI did not show a new stroke. It did show brain atrophy consistent with aging. The telemedicine Neuro stroke doctor had recommended that if no stroke is seen, then this may have been a seizure, and you need to increase your Keppra dose from 500 mg twice daily to 750 mg twice daily. I have ordered this new dose in a prescription and sent it electronically to your [facility] pharmacy in [place]. Otherwise you may resume all your other pre-Hospital medications, and you are being discharged today. Plan of Treatment: As above. Care Goals: Improvement in symptoms and stabilization are the goals. Assessment: Patient understands and is agreeable with the plan. Additional Instructions or Follow Up instructions: If you have new or worsening symptoms, call your PCP for advice, or come to the ER. No Smoking: If you smoke, Please STOP! Call for help. Follow-up with: Jose Larson MD [Primary Care Provider] -
--- NOTE | 2023-02-07 18:39 | DISCHARGE SUMMARY ---
Discharge Summary Admit Date: 02/06/23 Discharge Date: 02/07/23 Discharging Provider: Dr Marie Rivas Primary Care Provider: Dr Jose Larson Code Status: Do Not Attempt Resuscitation Condition at Discharge: Fair Discharge Disposition: 01 Home, Self Care - DIAGNOSES Admission Diagnoses: (1) TIA (transient ischemic attack) (2) Seizure disorder (3) Diabetes mellitus type 2, insulin dependent (4) Acute kidney injury superimposed on CKD - HPI History of Present Illness: This is a 77-year-old female with a history of diabetes mellitus insulin, B12 and Iron deficiency, partial complex seizures on Keppra, prior TIAs, sleep apnea who does not usually use her nightly CPAP. Patient presented in POV complaining of left-sided weakness and said she thought she was having a stroke. She said she dropped a mug that was in her left hand. She usually can walk with a cane and today walking was more difficult. She described word finding difficulty. In the ED she did have left-sided facial droop and left leg drift and left arm weakness. She underwent a CT of the head and CTA of head and neck. These were unremarkable except for ischemic findings consistent with her age. She underwent a Telestroke consultation. By that time all her symptoms had resolved. The patient was already taking aspirin therefore the Telestroke neurologist recommended she be Plavix loaded and to take Plavix daily for 21 days and to have an MRI tomorrow. Neurologist also said that if the MRI is negative to increase her Keppra dose from 500 twice daily to 750 twice daily. The ED provider spoke to me about this patient. She will be placed in Observation status to evaluate her TIA. Patient herself thinks she had a seizure and had already been hoping to try to get off the Keppra but understands that it needs to continue. During her stay in the ED she was noted to have an O2 saturation on room air of 85%. She was reevaluated, had clear lungs, BNP of 13 and a chest x-ray was unremarkable. She was put on oxygen but then when oxygen was removed the saturation remained normal. The patient's lab work was remarkable for a creatinine of 3.0, her last creatinine 1 year ago was 1.4. IV fluids were started in the ED. I discussed her CODE BLUE wishes and she wants to be a DNR/DNI. - HOSPITAL COURSE Hospital Course: (1) TIA (transient ischemic attack) The patient had left-sided facial droop, left arm and leg weakness and these resolved while in the ED. The impression by the telestroke neurologist was a TIA and she was placed in Observation status. Telemetry was unremarkable. Her brain MRI was done the following day and showed no acute stroke. There was no recurrence of her neuro deficit. Continue with 1 baby aspirin daily lifelong. Since there was no stroke, daily Plavix was not continued. A fasting lipid panel showed an LDL of 20 (on Crestor), but Trigl level of 322 (goal Trigl level is < 150). This can improve if she has tighter glucose control or she should be started on Tricor or Fenofibrate. (2) Seizure disorder She was put on her Keppra 500 twice daily. As per the telestroke neurologist recommendations, since the brain MRI did not show an acute stroke, her Keppra dose should be increased to 750 twice daily. She was advised of this, and a new prescription was electronically sent to her pharmacy for this new dose. She will need a Keppra level done in about a week. (3) Diabetes mellitus type 2, insulin dependent Her admission spot glucose level was 220. Her A1c came back at 7.8, indicating fair control. She was put on a diabetic diet, sliding scale insulin for fingerstick Accu-Chek coverage, hypoglycemia protocol, and an empiric dose of Lantus BID was ordered. Her usual diabetic meds and management were advised to be restarted after discharge. (4) Acute kidney injury superimposed on CKD Her last creat was 1.4 in our hospital records. Now the creatinine was 3. This may be from dehydration vs CKD from diabetes. She got an IV dye load when she underwent CTA of head and neck, before the creat of 3 was known. So, she was ordered to get iv NS and the creat the following day had improved to 2.3. She needs a hospital follow-up visit with BMP lab testing done, to assure the creatinine is better and stabilized. (Her PCP will be alerted the next day, since she was discharged at 1845, after office hours). - ALLERGIES Allergies/Adverse Reactions: Allergies Allergy/AdvReac Type Severity Reaction Status Date / Time Penicillins Allergy Severe Anaphylaxis Verified 02/06/23 14:43 doxycycline Allergy Rash Verified 02/06/23 14:43 tamsulosin [From Flomax] Allergy Rash Verified 02/06/23 14:43 - MEDICATIONS Home Medications: Ambulatory Orders Medication Instructions Recorded Confirmed Albuterol Sulfate [Proair Hfa 1 - 2 puffs INH Q4H PRN 04/16/20 02/07/23 Inhaler] Aspirin [Adult Aspirin Regimen] 81 mg PO DAILY 04/16/20 02/07/23 Duloxetine HCl [Cymbalta] 60 mg PO QPM 04/16/20 02/07/23 Fluticasone/Salmeterol [Advair 1 puffs INH BID 04/16/20 02/07/23 100-50 Diskus] Gabapentin 600 mg PO BID 04/16/20 02/07/23 Losartan [Cozaar] 50 mg PO QPM 04/16/20 02/07/23 Metformin HCl 1,000 mg PO QDBREAKFAST 04/16/20 02/07/23 Omeprazole 20 mg PO QPM 04/16/20 02/07/23 diphenhydrAMINE [Benadryl] 25 mg PO QPM 04/16/20 02/07/23 Promethazine [Phenergan] 25 mg PO Q8H PRN 04/17/20 02/07/23 Morphine Sulfate [Ms Contin] 15 mg PO BID 11/03/20 02/07/23 Cholecalciferol [Vitamin D3] 400 unit PO DAILY 02/07/23 02/07/23 Fenofibrate Nanocrystallized 48 mg PO DAILY 02/07/23 02/07/23 [Fenofibrate] Insulin NPH Human Isophane 90 units SUBQ QPM 02/07/23 02/07/23 [Novolin N] Insulin Regular, Human [Novolin R] 0 - 10 units SUBQ TIDWM 02/07/23 02/07/23 Insulin Regular, Human [Novolin R] 10 units SUBQ BID 02/07/23 02/07/23 Levetiracetam [Keppra Xr] 750 mg PO BID #60 tab 02/07/23 Oxycodone HCl/Acetaminophen 1 tab PO TID PRN 02/07/23 02/07/23 [Percocet 10-325 mg Tablet] Rosuvastatin Calcium [Crestor] 10 mg PO QPM 02/07/23 02/07/23 oxyBUTYnin chloride [Oxybutynin 10 mg PO QPM 02/07/23 02/07/23 Chloride ER] - PHYSICAL EXAM AT DISCHARGE General Appearance: positive: No acute distress, Alert Eyes Bilateral: positive: Normal inspection, EOMI ENT: positive: ENT inspection nml, No signs of dehydration Neck: positive: Nml inspection, No JVD Respiratory: positive: No respiratory distress, Breath sounds nml Cardiovascular: positive: Regular rate & rhythm, No murmur Abdomen: positive: Non-tender, Nml bowel sounds, No distention, Other (Obese) Skin: positive: Warm, Dry Extremities: positive: Non-tender, No pedal edema Neurologic/Psychiatric: positive: Oriented x3, Motor nml - LABS Result Diagrams: 02/07/23 05:08 02/07/23 05:08 - DIAGNOSTIC IMAGING Diagnostic Imaging Results: Final report reviewed - FOLLOW UP Follow Up: See PCP and any specialists for hospital follow-up visit. - TIME SPENT Time Spent in Discharge (Minutes): 30
[2023-02-07] MEDS ORDERED: MORPHINE ER 15 MG TABLET PO SCH (21:00)
[2023-02-07] MEDS ORDERED: levETIRAcetam 250 MG TABLET PO SCH (21:00)
[2023-02-08 14:04] VITALS: BP 127/52
== END 2023-02-07 19:30 | disposition home or self-care (01) ==
LOC: ED 14:28 → MS2 16:56
PROVIDERS: ADMIT Internal Medicine; ATTEND Internal Medicine
DX: G45.9 Transient cerebral ischemic attack, unspecified (principal); N17.9 Acute kidney failure, unspecified; G40.909 Epilepsy, unspecified, not intractable, without status epilepticus; E11.22 Type 2 diabetes mellitus with diabetic chronic kidney disease; I12.9 Hypertensive chronic kidney disease with stage 1 through stage 4 chronic kidney disease, or unspecified chronic kidney disease; N18.9 Chronic kidney disease, unspecified; Z79.84 Long term (current) use of oral hypoglycemic drugs; Z79.4 Long term (current) use of insulin; F32.A Depression, unspecified; Z87.891 Personal history of nicotine dependence; G47.30 Sleep apnea, unspecified; I44.0 Atrioventricular block, first degree; Z86.73 Personal history of transient ischemic attack (TIA), and cerebral infarction without residual deficits
CPT/HCPCS: 36415; 70450; 70496; 70498; 70551; 71045; 80048; 80053; 80061; 81001; 83036; 83690; 83880; 85025; 85610; 93005; 97162; 97166; 99285; A9270; G0378; Q9967; 83721; 87086

== ENCOUNTER 2023-03-28 14:02 | Outpatient (CLI) | payer MEDICARE, OTHER ==
--- NOTE | 2023-03-28 14:51 | SLEEP CARE CONSULTATION ---
Information from patient questionnaire entered by Ana Paula Acosta. I have reviewed and concur with the information entered by Ana Paula Acosta. This document represents the service I personally performed and the decisions made by me, Kiana Wright MD, [facility]. History of Present Illness Service Date and Time: 03/28/2023 1402 Previous diagnosis: Moderate, Obstructive Sleep Apnea-Hypopnea Syndrome AHI: 15.7 (in 2019) Reason for follow up: annual (LAST SEEN 10/2020) Equipment type: CPAP (PT NOT USING CPAP FOR OVER A YR) Equipment obtained from: Other ([facility]) Mask style: Nasal Prior sleep studies: Yes Year and Where: 2019 - [facility] Type of Sleep Study: Polysomnography HPI additional information: Ms. Han returned today for follow up of nasal CPAP therapy. She was diagnosed to have moderate obstructive sleep apnea-hypopnea syndrome. The patient said she quit using her CPAP 2 years ago because of claustrophobia. She did sleep better with the CPAP. She reports loud snore, persistent fatigue, and excessive daytime sleepiness. Her Jerusalem Sleepiness Scale score is 18. She does not drive. She is interested in the Inspire therapy (hypoglossal nerve stimulation). Sleep Study - Results Type of Sleep Study: Polysomnography Prior sleep studies: Yes Year and Where: 2019 - [facility] Subjective Initial Jerusalem Sleepiness Scale score: 10 (in 2019) Current Jerusalem Sleepiness Scale score: 18 (03/28/23) Allergies and Home Medications Drug allergies reviewed: Yes Home medication list reviewed: Yes Allergy and home medication list: Allergies Penicillins Allergy (Severe, Verified 03/25/23 09:42) Anaphylaxis doxycycline Allergy (Verified 03/25/23 09:42) Rash tamsulosin [From Flomax] Allergy (Verified 03/25/23 09:42) Rash Review of Systems Review of systems same as previous: Yes Physical Exam Vital signs obtained and entered by: ANA PAULA Lester MA Blood Pressure: 118/60 (LEFT ARM) Cuff size: regular Heart Rate: 91 O2 Saturation: 96 Height: 5 ft 8 in Weight: 224 lb 8 oz Body Mass Index: 34.1 BMI Classification: Obese Impression and Plan IMPRESSION: 1. Obstructive Sleep Apnea-Hypopnea Syndrome, moderate, with the patient unable to tolerate CPAP therapy due mainly to claustrophobia. She may be a candidate for Inspire Therapy. Her BMI is right at the cut off. I will repeat the in-laboratory polysomnography to confirm that the obstructive sleep apnea-hypopnea is still at least moderate in severity. PLAN: 1. Schedule an in-laboratory polysomnography. 2. Try to lose weight 3. Return for follow up after the sleep study. Counseling Topics: Weight control Follow up with Sleep Care in: 1-2 months Visit Type: In Office Time Spent with Patient (minutes): 15 Provider Statement: I spent 100% of the Face to Face Visit with the patient with greater than 50% spent counseling the patient and coordination of care.
[2023-03-28 14:54] VITALS: BP 118/60
== END 2023-03-28 14:03 | disposition home or self-care (01) ==
LOC: SC 14:02
PROVIDERS: ATTEND Internal Medicine Pulmonary Disease
DX: G47.33 Obstructive sleep apnea (adult) (pediatric) (principal); E66.9 Obesity, unspecified; Z68.34 Body mass index [BMI] 34.0-34.9, adult
CPT/HCPCS: 99212; G0463